=== PATIENT | male | born 1940 | race Caucasian/White ===

== ENCOUNTER → 2017-12-05 14:23 | Outpatient (CLI) | payer MEDICARE, OTHER, SELFPAY ==
--- NOTE | 2017-12-05 14:27 | DI.RAD.S_ITS ---
PROCEDURE: XR CHEST 2V INDICATIONS: shortness of breath TECHNIQUE: 2 views of the chest were acquired. COMPARISON: [facility], , CHEST 2 VIEW, 03/05/2014, 10:18. FINDINGS: Surgical changes and devices: None. Lungs and pleura: No pleural effusions or pneumothorax. Lungs are clear. Mediastinum: Mediastinal contours are normal. Heart size is normal. Bones and chest wall: No suspicious bony abnormalities. Soft tissues appear unremarkable. IMPRESSION: No acute pulmonary process. Dictated by: Yi Jacobo M.D. on 12/05/2017 at 16:07 Approved by: Yi Jacobo M.D. on 12/05/2017 at 16:07
[2017-12-05 15:06] LABS: Add Manual Diff / Slide Review NO; Basophils Percent Auto 0.4 % (0-2); Eosinophils Percent Auto 3.6 % (2-4); Hematocrit 41.8 % (41-53); Lymphocytes Percent Auto 39.3 % (25-40); Mean Corpuscular HGB Conc 33.6 % (30-36); Mean Corpuscular Hemoglobin 30.4 PG (26-34); Mean Corpuscular Volume 90.5 fL (80-100); Monocytes Percent Auto 8.5 % (3-14); Neutrophils Absolute Auto 2400 /uL (3000-5900); Neutrophils Percent Auto 48.2 % (50-75); Platelet Count 158 X10^3/uL (150-400); Red Blood Cell Count 4.61 X10^6/uL (4.5-5.9); Red Cell Distribution Width 15.1 % (11.6-14.8)
[2017-12-05 15:24] LABS: Alanine Aminotransferase 23 IU/L (21-72); Albumin 3.8 g/dL (3.5-5.0); Albumin Globulin Ratio 1.4 (1.0-2.8); Alkaline Phosphatase 48 U/L (38-126); Aspartate Aminotransferase 34 IU/L (17-59); BUN Creatinine Ratio 22.2 (6-22); Bilirubin Total 0.5 mg/dL (0.2-1.3); Blood Urea Nitrogen 20 mg/dL (9-20); Carbon Dioxide 32 mmol/L (22-32); Chloride 105 mmol/L (98-107); Estimated Glomerular Filt Rate > 60.0 mL/min (>60); Globulin 2.8 g/dL (1.7-4.1); Glucose 96 mg/dL (80-110); HEMOLYSIS < 15 (0-50); Sodium 145 mmol/L (137-145); Total Protein 6.6 g/dL (6.3-8.2)
== END ==
PROVIDERS: Family Provider Family Medicine; PCP Family Medicine; Visit Provider Family Medicine
DX: R06.02 Shortness of breath (principal); R06.2 Wheezing
CPT/HCPCS: 36415; 71046; 80053; 83880; 85025

== ENCOUNTER 2017-12-16 17:18 | Emergency (ER) | payer MEDICARE, OTHER, SELFPAY ==
[2017-12-16 17:26] VITALS: BP 156/78; PULSE 68; RESP 14; TEMP 36.6; O2SAT 98
--- NOTE | 2017-12-16 17:31 | DI.RAD.S_ITS ---
PROCEDURE: XR CHEST 1V INDICATIONS: chest pain TECHNIQUE: One view of the chest was acquired. COMPARISON: [facility], CR, XR CHEST 2V, 12/05/2017, 14:10. FINDINGS: Surgical changes and devices: None. Lungs and pleura: No pleural effusions or pneumothorax. Lungs are clear. Mediastinum: Mediastinal contours appear normal. Heart size is normal. Bones and chest wall: No suspicious bony lesions. Overlying soft tissues appear unremarkable. IMPRESSION: No acute cardiopulmonary disease process. Dictated by: Tanja Greer MD, PhD on 12/16/2017 at 18:13 Approved by: Tanja Greer MD, PhD on 12/16/2017 at 18:13
[2017-12-16 18:12] LABS: Add Manual Diff / Slide Review NO; Basophils Percent Auto 0.8 % (0-2); Hematocrit 41.2 % (41-53); Hemoglobin 13.8 g/dL (13.5-17.5); Lymphocytes Percent Auto 30.8 % (25-40); Mean Corpuscular HGB Conc 33.6 % (30-36); Mean Corpuscular Hemoglobin 30.6 PG (26-34); Mean Corpuscular Volume 90.9 fL (80-100); Monocytes Percent Auto 8.5 % (3-14); Neutrophils Absolute Auto 3100 /uL (3000-5900); Neutrophils Percent Auto 55.9 % (50-75); Platelet Count 162 X10^3/uL (150-400); Red Blood Cell Count 4.53 X10^6/uL (4.5-5.9); Red Cell Distribution Width 15.6 % (11.6-14.8); White Blood Cell Count 5.4 X10^3/uL (4.5-11.0)
[2017-12-16 18:30] VITALS: BP 132/77; PULSE 62; RESP 16; O2SAT 96
[2017-12-16 18:39] LABS: INR 2.2 (0.9-1.3); Prothrombin Time 24.7 SECONDS (10.1-12.7)
[2017-12-16 18:42] LABS: PTT Partial Thromboplastin Tim 35 SECONDS (26.4-36.2)
[2017-12-16 18:48] LABS: Alanine Aminotransferase 30 IU/L (21-72); Albumin 4.1 g/dL (3.5-5.0); Albumin Globulin Ratio 1.5 (1.0-2.8); Alkaline Phosphatase 47 U/L (38-126); Aspartate Aminotransferase 27 IU/L (17-59); BUN Creatinine Ratio 28.9 (6-22); Bilirubin Total 0.4 mg/dL (0.2-1.3); Blood Urea Nitrogen 26 mg/dL (9-20); Calcium 8.8 mg/dL (8.4-10.2); Carbon Dioxide 30 mmol/L (22-32); Chloride 106 mmol/L (98-107); Estimated Glomerular Filt Rate > 60.0 mL/min (>60); Globulin 2.8 g/dL (1.7-4.1); Glucose 116 mg/dL (80-110); HEMOLYSIS 19 (0-50); Potassium 4.1 mmol/L (3.4-5.1); Sodium 144 mmol/L (137-145); Total Protein 6.9 g/dL (6.3-8.2)
--- NOTE | 2017-12-16 18:58 | DI.CT.S_ITS ---
PROCEDURE: CT ANGIO CHEST PE PROTOCOL INDICATIONS: Chest pain, Shortness of breath, hypoxia TECHNIQUE: After the administration of intravenous contrast, 2 mm thick sections acquired from the pulmonary apices to the posterior costophrenic angles. 3-dimensional maximum intensity projection (MIP) coronal and sagittal reformats were then acquired through the thorax. For radiation dose reduction, the following was used: automated exposure control, adjustment of mA and/or kV according to patient size. COMPARISON: None. FINDINGS: Image quality: Excellent. Pulmonary arteries: Pulmonary arteries are normal in size, and demonstrate no intraluminal filling defects to suggest central pulmonary embolism. Lungs and pleura: Atelectasis noted in the dependent portions of the lungs. 7 mm calcified granuloma noted in the lingula of the left upper lobe. No pleural effusions or pneumothorax. Central and peripheral airways are patent. Mediastinum: Heart size is normal, without pericardial effusion. Atherosclerotic calcifications are noted in the aorta, great vessels and the coronary vasculature. No mediastinal or hilar adenopathy. Thoracic aorta is normal in caliber and enhancement. Esophagus is normal in caliber, without hiatal hernia. Bones and chest wall: No suspicious bony lesions. Ribs and thoracic spine appear intact throughout. Spine degenerative disease and facet arthropathy noted. Thyroid gland is within normal limits. No axillary or supraclavicular adenopathy. Abdomen: Calcification noted in the posterior-superior subsegment of the right lobe of the liver. Gallbladder surgically absent. Visualized upper abdominal solid organs otherwise appear normal in the early arterial phase of enhancement. IMPRESSION: 1. No pulmonary embolus. 2. Bibasilar atelectasis left greater than right. 3. No pleural effusions. 4. Atherosclerosis including dense atherosclerotic calcifications in the coronary vasculature. Dictated by: Tanja Greer MD, PhD on 12/16/2017 at 19:22 Approved by: Tanja Greer MD, PhD on 12/16/2017 at 19:27
[2017-12-16 19:00] VITALS: BP 154/69; PULSE 59; RESP 15; O2SAT 98
[2017-12-16 19:04] LABS: Troponin I < 0.012 ng/mL (0.01-0.034)
--- NOTE | 2017-12-16 19:46 | ED.DIZZY ---
HPI - Dizziness General Chief Complaint: Dizziness Stated Complaint: DIZZINESS Time Seen by Provider: 12/16/17 18:15 Source: patient and family Mode of arrival: ambulatory Limitations: no limitations History of Present Illness HPI Narrative: 77-year-old male, nonsmoker with history of Parkinson's presents to the emergency department with his in the chief complaint of increasing episodes of shortness of breath and dizziness with exertion over the past weeks to months. He has been evaluated by his primary care provider regarding this. The patient states his symptoms worsen with exertion and improved with rest. He denies change in symptoms with change of position of his head or medially standing up. He denies chest pain, nausea or vomiting. He denies any diaphoresis. He has had no recent runny nose, sore throat or cough. He denies fever or chills MD complaint: dizziness and lightheadedness Onset (ago): week(s) Timing: gradual onset Description: lightheadedness History of similar episodes: Yes History of trauma: No Severity: moderate Relieving factors: rest Exacerbating factors: exertion Related Data Home Medications Medication Instructions Recorded Confirmed CA PANTOTHENATE/FOLIC ACID/VIT 1 tab PO QDAY #0 05/14/11 12/08/17 (MULTIVITAMIN) Fish Oil (#MAREPA) 1,200 mg PO BID #0 05/14/11 12/08/17 carbidopa-levodopa QID #0 05/15/17 12/08/17 memantine [Namenda] 10 mg PO BID #0 05/15/17 12/08/17 Previous Rx's Medication Instructions Recorded warfarin [Coumadin] 0 PO SEE INSTRUCTIONS #160 tab 05/14/17 tamsulosin [Flomax] 0.4 mg PO QDAY #90 cap 10/06/17 finasteride 5 mg PO Q DAY #90 tab 10/20/17 albuterol sulfate HFA 90 2 puff INHALATION Q6H PRN #8.5 gram 12/08/17 mcg/actuation aerosol inhaler Allergies Allergy/AdvReac Type Severity Reaction Status Date / Time oxycodone [OXYCODONE] Allergy Mild HIVES Verified 12/08/17 13:26 acetaminophen [From PERCOCET] Allergy Unknown Verified 12/08/17 13:26 adhesive [ADHESIVE] Allergy Unknown Verified 12/08/17 13:26 Review of Systems Review of Systems All systems reviewed & are unremarkable except as noted in HPI and below Constitutional Denies chills, Denies fever(s), Denies lethargy and Denies weakness Eyes Denies change in vision, Denies eye discharge, Denies irritation and Denies loss of vision ENT Ears, Nose, Mouth, and Throat: Denies change in voice, Reports dizziness, Denies neck pain and Denies sore throat Cardiovascular Denies chest pain, Denies irregular heart rhythm, Reports lightheadedness, Denies palpitations, Reports dyspnea, Reports dyspnea on exertion and Denies orthopnea Respiratory Denies cough, Reports dyspnea, Reports dyspnea on exertion and Denies wheezing Gastrointestinal Gastrointestinal: Denies abdominal pain, Denies change in bowel habits, Denies diarrhea, Denies nausea and Denies vomiting Genitourinary Denies hematuria, Denies flank pain, Denies urinary incontinence and Denies urinary urgency Musculoskeletal Denies neck pain Integumentary/Breasts Denies pruritus, Denies erythema, Denies rash and Denies wounds Neurologic Denies confusion, Reports dizziness, Denies loss of vision and Denies weakness Psychiatric Denies anxiety, Denies confusion, Denies depression, Denies homicidal ideation and Denies suicidal ideation Endocrine Denies palpitations Hematologic/Lymphatic Denies easy bruising Allergic/Immunologic Denies wheezing PFSH Social History marital status: Smoking Status: Former smoker alcohol intake: never substance use type: does not use Exam Narrative Exam Narrative: Pleasantly confused 77-year-old male is resting comfortably and in no obvious distress at this point time Initial Vital Signs Initial Vital Signs: Vital Signs Temperature 97.8 F 12/16/17 17:26 Pulse Rate 68 12/16/17 17:26 Respiratory Rate 14 12/16/17 17:26 Blood Pressure 156/78 H 12/16/17 17:26 Pulse Oximetry 98 12/16/17 17:26 Const General: cooperative and well developed Nutritional Appearance: well nourished Orientation: alert, awake, oriented x3 and not confused [facility] Head: normocephalic and atraumatic Ears: external ears normal and TM's normal bilaterally Nose: external nose normal and No nasal discharge Face and sinus: sinuses nontender, face symmetric, no sinus tenderness and No dry mucous membranes Mouth: oral mucosae normal and moist mucous membranes Teeth and gingiva: dentition normal Throat: tonsils normal and uvula midline Eyes General: appearance normal, both eyes and all related structures Eyelids: eyelids normal Conjunctivae: conjunctivae normal Sclera: sclerae normal Pupils: PERRL EOM: EOM intact bilaterally Neck Neck: normal visual inspection, trachea midline, No lymphadenopathy, No midline deformity and No JVD Lymphatic: No lymphedema Chest Chest: normal inspection of the chest Resp Effort & Inspection: normal respiratory effort, able to speak in complete sentences, no respiratory distress and no use of accessory muscles Auscultation: clear to auscultation bilaterally, no rales, no rhonchi and no wheezes Cardio Rate: regular rate Rhythm: regular rhythm Heart Sounds: no click, no gallops, no murmurs and no rubs Pulses: normal peripheral pulses GI Inspection: non-distended Palpation: soft, no hepatosplenomegaly, No guarding, No pulsatile mass and No tender Auscultation: normal bowel sounds Back/Spine/Pelvis Back: No CVA tenderness Cervical Spine: cervical ROM normal and No pain with cervical ROM Thoracic/Lumbar Spine: thoracic and lumbar spine normal to inspection Skin General: no rashes or lesions noted, No jaundice and No petechiae Neuro General: alert, oriented x3, gait normal and no focal motor deficits Speech: speech normal Extrem General: full ROM, no clubbing, cyanosis or edema, no pedal edema and no calf tenderness Psych Appearance: well kempt Mental Status: mental status grossly normal Attitude: cooperative Thought Content: normal and suicidality Judgment: judgment good Course Orders Ordered: ED Orders 12/16/17 17:31 XR chest 1V Stat EKG-12 Lead Stat 12/16/17 18:05 B Type Natriuretic Peptide Stat Complete Blood Count AUTO DIFF Stat Comprehensive Metabolic Panel Stat Partial Thromboplastin Time Stat Prothrombin Time INR Stat Troponin I Stat 12/16/17 18:58 CT angio chest PE protocol Stat Vital Signs - 8 hr 12/16/17 20:26 Pulse Rate 64 Respiratory Rate 17 Blood Pressure 129/84 Pulse Oximetry 97 MDM - Dizziness Differential Diagnosis Likely adverse reaction to drug, cerebrovascular accident, acute vestibular neuronitis and transient cerebral ischemia Medical Records Attestation: I reviewed the patient's medical records. Lab Data Attestation: I reviewed the patient's lab results. Result diagrams: 12/16/17 18:05 12/16/17 18:05 Lab Results 12/16/17 12/16/17 12/16/17 Range/Units 18:05 18:05 18:05 WBC 5.4 (4.5-11.0) X10^3/uL RBC 4.53 (4.5-5.9) X10^6/uL Hgb 13.8 (13.5-17.5) g/dL Hct 41.2 (41-53) % MCV 90.9 (80-100) fL MCH 30.6 (26-34) PG MCHC 33.6 (30-36) % RDW 15.6 H (11.6-14.8) % Plt Count 162 (150-400) X10^3/uL Neut % (Auto) 55.9 (50-75) % Lymph % (Auto) 30.8 (25-40) % [place] % (Auto) 8.5 (3-14) % Eos % (Auto) 4.0 (2-4) % Baso % (Auto) 0.8 (0-2) % Neut # (Auto) 3100 (3691-8481) /uL PT 24.7 H (10.1-12.7) SECONDS INR 2.2 H (0.9-1.3) APTT 35 (26.4-36.2) SECONDS Sodium 144 (137-145) mmol/L Potassium 4.1 (3.4-5.1) mmol/L Chloride 106 (98-107) mmol/L Carbon Dioxide 30 (22-32) mmol/L BUN 26 H (9-20) mg/dL Creatinine 0.90 (0.66-1.25) mg/dL Estimated GFR > 60.0 (>60) mL/min BUN/Creatinine Ratio 28.9 H (6-22) Glucose 116 H (80-110) mg/dL Calcium 8.8 (8.4-10.2) mg/dL Total Bilirubin 0.4 (0.2-1.3) mg/dL AST 27 (17-59) IU/L ALT 30 (21-72) IU/L Alkaline Phosphatase 47 (38-126) U/L Troponin I < 0.012 (0.01-0.034) ng/mL B-Natriuretic Peptide 125.0 H (<100) Total Protein 6.9 (6.3-8.2) g/dL Albumin 4.1 (3.5-5.0) g/dL Globulin 2.8 (1.7-4.1) g/dL Albumin/Globulin Ratio 1.5 (1.0-2.8) Imaging Data CT scan - chest: Radiologist's impression: [address] [address] [address] Scan Report Signed Patient: Tom Mcallister JR TMR#: [id number] : 2Acct:[id number] Age/Sex: 77 / MDate of Service: 12/16/17 Loc: ED Accession Number: [id number] Procedure: CT angio chest PE protocol Ordering Provider: Héctor Fleming D.O. PROCEDURE: CT ANGIO CHEST PE PROTOCOL INDICATIONS: Chest pain, Shortness of breath, hypoxia TECHNIQUE: After the administration of intravenous contrast, 2 mm thick sections acquired from the pulmonary apices to the posterior costophrenic angles. 3-dimensional maximum intensity projection (MIP) coronal and sagittal reformats were then acquired through the thorax. For radiation dose reduction, the following was used: automated exposure control, adjustment of mA and/or kV according to patient size. COMPARISON: None. FINDINGS: Image quality: Excellent. Pulmonary arteries: Pulmonary arteries are normal in size, and demonstrate no intraluminal filling defects to suggest central pulmonary embolism. Lungs and pleura: Atelectasis noted in the dependent portions of the lungs. 7 mm calcified granuloma noted in the lingula of the left upper lobe. No pleural effusions or pneumothorax. Central and peripheral airways are patent. Mediastinum: Heart size is normal, without pericardial effusion. Atherosclerotic calcifications are noted in the aorta, great vessels and the coronary vasculature. No mediastinal or hilar adenopathy. Thoracic aorta is normal in caliber and enhancement. Esophagus is normal in caliber, without hiatal hernia. Bones and chest wall: No suspicious bony lesions. Ribs and thoracic spine appear intact throughout. Spine degenerative disease and facet arthropathy noted. Thyroid gland is within normal limits. No axillary or supraclavicular adenopathy. Abdomen: Calcification noted in the posterior-superior subsegment of the right lobe of the liver. Gallbladder surgically absent. Visualized upper abdominal solid organs otherwise appear normal in the early arterial phase of enhancement. IMPRESSION: 1. No pulmonary embolus. 2. Bibasilar atelectasis left greater than right. 3. No pleural effusions. 4. Atherosclerosis including dense atherosclerotic calcifications in the coronary vasculature. Dictated by: Tanja Greer MD, PhD on 12/16/2017 at 19:22 Approved by: Tanja Greer MD, PhD on 12/16/2017 at 19:27 [facility] Narrative Medical decision making narrative: Stroke considered as an etiology of the patient's symptoms however his dizziness is closely associated with shortness of breath and is actually more appropriate described as lightheadedness. He has no focal neurologic findings. Middle ear problems considered such as BPPV, labyrinthitis versus other but thought less likely given lack of reproducibility or significant intensity of symptoms with motion of the head Cardiac disease considered the most likely cause of symptoms given reproducibility with exertion and constellation of symptoms including shortness of breath and lightheadedness with exertion and improves with rest. Patient considered appropriate for outpatient workup given lack of abnormal labs or EKG changes in the setting of chronic symptoms Discharge Plan Departure Patient Disposition: Home Clinical Impression: Acute dyspnea Discharge Date/Time: 12/16/17 20:01 Interventions: ED Discharge Assessment Last Done: 12/16/17 20:26 Instructions: DI for Shortness of Breath Activity Restrictions/Additional Instructions: *You have been diagnosed with [ chronic worsening dyspnea with dizziness ] *What to do: *Continue to take medications as directed *Follow up with your primary care provider in 2-3 days, call for an appointment. Let them know you were seen in the Emergency Department and that we ask that you be seen in follow up. Dr. Burgos's plan to proceed with stress test and echocardiogram is very reasonable and would be my recommendation as well. *Return to ER if you should have any new, worsening or concerning symptoms Prescriptions: No Action CA PANTOTHENATE/FOLIC ACID/VIT (MULTIVITAMIN) 1 tab PO QDAY Qty: 0 RF: 0 Fish Oil (#MAREPA) 1,200 mg PO BID Qty: 0 RF: 0 warfarin [Coumadin] 5 MG tablet PO SEE INSTRUCTIONS Qty: 160 RF: 3 memantine [Namenda] 10 MG tablet 10 mg PO BID Qty: 0 RF: 0 carbidopa-levodopa 25 MG/100 MG tablet QID Qty: 0 RF: 0 tamsulosin [Flomax] 0.4 mg capsule,extended release 24hr 0.4 mg PO QDAY Qty: 90 RF: 3 finasteride 5 mg tablet 5 mg PO Q DAY Qty: 90 RF: 3 albuterol sulfate 90 mcg/actuation HFA aerosol inhaler 2 puff INHALATION Q6H PRN (Reason: bronchospasm) Qty: 8.5 RF: 0 Referrals: Addi Burgos MD [Primary Care Provider] -
[2017-12-16 20:26] VITALS: BP 129/84; PULSE 64; RESP 17; O2SAT 97
== END 2017-12-16 20:01 | disposition home or self-care (01) ==
PROVIDERS: Emergency Medicine; Emergency Provider Emergency Medicine; Family Provider Family Medicine; PCP Family Medicine
DX: R06.00 Dyspnea, unspecified (principal); R42 Dizziness and giddiness
CPT/HCPCS: 36591; 71045; 71275; 80053; 83880; 84484; 85025; 85610; 85730; 93005; 99282; 99285; Q9967

== ENCOUNTER → 2018-01-09 12:17 | Outpatient (CLI) | payer MEDICARE, OTHER, SELFPAY ==
--- NOTE | 2018-01-09 15:04 | PM.TREADMILL ---
Cardiac Stress Test Report Referral & Results Date Patient Seen: 01/09/18 Requesting provider: Addi Burgos Indication: Dyspnea Rest ECG: Unremarkable Procedure Note: Today following both written and verbal informed consent, the patient was exercised according to a standard Henri protocol. The patient exercised for a total of 6 min 2 sec achieving a maximum heart rate of 100. Patient's maximum systolic blood pressure was 170. This was an estimated 7.0 MET's. There are no ST-T segment changes Patient had a very blunted heart rate response but normal blood pressure response to exercise. He failed to reach heart rate targets Occasional PACs with a prominent compensatory pauses were noted Rare PVCs including a ventricular couplet Functional aerobic impairment rated 0 on the sedentary scale Impression: Dysrhythmias above No evidence of ischemia although patient failed to reach heart rate targets. Review of patient's chart shows he is not taking any chronotropic agents therefore wonder about possible chronotropic insufficiency as perhaps a part of his symptomatology. Clinical correlation suggested Please note: Actual ECG tracings can be found in the PACS system.
--- NOTE | 2018-01-09 21:14 | DI.ECHO.S_ITS ---
Echocardiogram Report + + :Name: NELSON BLANTON Study Date: 01/09/2018 Height: 71 in : :[facility] Weight: 200 lb : : Gender: Male BSA: 2.1 m2 : :: 1940 Age: 77 yrs BP: 120/58 mmHg: :Reason For Study: Dyspnea : : Performed By: Mari Velasquez : :Referring: RIO MILLER : + + Interpretation Summary The left ventricle is normal in size. Left ventricular wall thickness is mild-moderately increased. The ejection fraction is estimated to be 60-65%. The right ventricle is normal in size and function. The left atrium is mildly dilated. There is moderate mitral regurgitation. The regurgitant volume is 39 mL with ERO of 0.21 cm??. -Comparison is made with the echocardiogram of 03-04-14. -The patient is now in atrial fibrillation with heart rates between 53-60 bpm during the exam. -The MR is slightly more. Procedure: A two-dimensional transthoracic echocardiogram with color flow and Doppler was performed. The study quality was technically adequate. Comparison is made with the echocardiogram of 03-04-14. The patient was in atrial fibrillation with heart rates between 53-60 bpm during the exam. Left Ventricle: The left ventricle is normal in size. Left ventricular wall thickness is mild-moderately increased. The ejection fraction is estimated to be 60-65%. There are no obvious focal wall motion abnormalities noted but poor endocardial definition reduces the sensitivity for the detection of such. Diastolic function could not be accurately assessed due to atrial fibrillation. Right Ventricle: The right ventricle is normal in size and function. TAPSE 2.3 cm. Atria: The left atrium is mildly dilated. Right atrial size is normal. The interatrial septum is intact with no evidence for an atrial septal defect. Mitral Valve: The mitral valve is grossly normal. There is moderate mitral regurgitation. The regurgitant volume is 39 mL with ERO of 0.21 cm??. Aortic Valve: The aortic valve opens well. The aortic valve is moderately calcified. The aortic valve is trileaflet. Leaflet mobility is normal. There is no aortic valve stenosis. No aortic regurgitation is present. Tricuspid Valve: The tricuspid valve is normal in structure and function. There is a trace or physiologic amount of tricuspid regurgitation. Pulmonary artery pressures cannot be estimated because of the lack of a measurable TR jet velocity but the IVC suggests a CVP of around 3 mmHg. Pulmonic Valve: The pulmonic valve is not well seen, but is grossly normal. There is a trace or physiologic amount of pulmonic regurgitation. Great Vessels: The aortic root is normal size. The ascending aorta is at the upper limits of normal in size. The IVC is of normal diameter and collapses greater than 50% with a sniff. This suggests a low right atrial pressure of 3 mm Hg. Pericardium/ Pleura There is no pericardial effusion. There is no pleural effusion. MMode/2D Measurements & Calculations LVIDd: 5.3 cm Ao root diam: 3.3 cm LVIDs: 3.1 cm Aortic Jxn: 2.6 cm FS: 42.1 % asc Aorta Diam: 3.5 cm EPSS: 0.54 cm Ao Arch Diam (Prox Trans): 2.8 cm IVSd: 0.80 cm LVPWd: 0.95 cm LV stevens. diameter/BSA (cm/m^2): 2.5 LV sys. diameter/BSA (cm/m^2): 1.5 LA dimension: 4.6 cm RA long axis: 4.9 cm LA A2 area: 29.6 cm2 RA area: 16.4 cm2 LA A4 area: 28.2 cm2 RA vol: 46.4 ml LA length (vol): 6.0 cm RA : 22.0 ml/m2 LA vol: 118.4 ml IVC diam: 1.8 cm LA vol index: 56.2 ml/m2 RVDd major: 5.1 cm RVD1 (basal): 3.8 cm RVD2 (mid): 3.3 cm Doppler Measurements & Calculations Ao V2 max: 167.4 cm/sec Med Peak E' Alfredo: 8.8 cm/sec Ao V2 mean: 98.1 cm/sec Lat Peak E' Alfredo: 8.2 cm/sec Ao max P.2 mmHg MR ERO: 0.21 cm2 Ao mean P.8 mmHg Ao V2 VTI: 33.2 cm TR max alfredo: 252.4 cm/sec MV V2 mean: 466.6 cm/sec TR max P.5 mmHg MV mean P.6 mmHg PA V2 max: 78.5 cm/sec MV V2 VTI: 194.1 cm PA V2 mean: 53.5 cm/sec PA mean P.3 mmHg PA Accel Time: 0.18 sec MR flow rate: 115.8 cm3/sec MR PISA radius: 0.70 cm _ Electronically signed by: Berto Butts M.D. on Reading Physician:01/09/2018 09:14 PM
== END ==
PROVIDERS: Family Provider Family Medicine; PCP Family Medicine; Visit Provider Family Medicine
DX: R06.00 Dyspnea, unspecified (principal)
CPT/HCPCS: 93016; 93017; 93018; C8929; Q9957

== ENCOUNTER 2018-09-11 21:33 | Emergency (ER) | payer MEDICARE, OTHER, SELFPAY ==
[2018-09-11 21:42] VITALS: BP 155/108; PULSE 72; RESP 20; TEMP 36.4; O2SAT 98; BMI 25.7
--- NOTE | 2018-09-11 22:55 | ED.RECABL ---
HPI - Recheck/Abnormal Lab/Rx General Chief Complaint: Recheck/Abnormal Lab/Rx Stated Complaint: LOW TEMP Time Seen by Provider: 09/11/18 22:31 Source: patient and family (His ) Mode of arrival: ambulatory Limitations: other (He has dementia) History of Present Illness HPI narrative: The patient developed abdominal pain earlier today. He complained of central abdominal pain, without nausea, vomiting or diarrhea. He has no dysuria or urinary retention. His no testicular pain he denies fever or chills. Actually his checked his temperature and got a reading of 94? and was concerned about a low temperature. Initial abdominal complaints, there is no suggestion of illness. He has no sinus pressure, or sore throat. He has no neck pain. He has no chest pain, no dyspnea or cough. He is anticoagulated with Coumadin for recurrent PEs. He takes medications for Parkinson's and dementia. Related Data Home Medications Medication Instructions Recorded Confirmed CA PANTOTHENATE/FOLIC ACID/VIT 1 tab PO QDAY #0 05/14/11 07/14/18 (MULTIVITAMIN) Fish Oil (#MAREPA) 1,200 mg PO BID #0 05/14/11 07/14/18 carbidopa-levodopa QID #0 05/15/17 07/14/18 memantine [Namenda] 10 mg PO BID #0 05/15/17 07/14/18 Previous Rx's Medication Instructions Recorded finasteride 5 mg PO Q DAY #90 tab 10/20/17 tamsulosin [Flomax] 0.4 mg PO QDAY #90 cap 03/30/18 warfarin 5 mg tablet 5 mg PO SEE INSTRUCTIONS #180 tab 04/06/18 Allergies Allergy/AdvReac Type Severity Reaction Status Date / Time oxycodone [OXYCODONE] Allergy Mild HIVES Verified 07/14/18 11:47 acetaminophen [From PERCOCET] Allergy Unknown Verified 07/14/18 11:47 adhesive [ADHESIVE] Allergy Unknown Verified 07/14/18 11:47 Review of Systems Review of Systems ROS Unobtainable: All systems reviewed & are unremarkable except as noted in HPI and below Constitutional Denies chills, Denies fever(s), Denies headache(s), Denies lethargy and Denies weakness Eyes Denies loss of vision ENT Ears, Nose, Mouth, and Throat: Denies change in voice, Denies dizziness, Denies headache(s), Denies neck pain and Denies sore throat Cardiovascular Denies chest pain, Denies palpitations and Denies dyspnea Respiratory Denies chest congestion, Denies cough, Denies hemoptysis and Denies dyspnea Gastrointestinal Gastrointestinal: Reports as per HPI, Reports abdominal pain, Denies change in bowel habits, Denies diarrhea, Denies nausea and Denies vomiting Genitourinary Reports as per HPI Musculoskeletal Denies back pain and Denies neck pain Integumentary/Breasts Denies pruritus, Denies erythema, Denies rash and Denies wounds Neurologic Denies dizziness, Denies headache(s), Denies focal weakness, Denies loss of vision, Reports memory loss, Reports tremor(s) and Denies weakness Psychiatric Denies anxiety, Denies depression and Reports memory loss Endocrine Denies palpitations [facility] Medical History Acne (Chronic) Asthma (Chronic ~1999) Atrial fibrillation (Chronic) Chronic back pain (Chronic ~1979) Depression (Chronic ~2011) Hearing loss (Chronic) Hypertension (Chronic) Osteoarthritis (Chronic) Peptic ulcer disease (Chronic ~1969) Pulmonary embolism (Chronic ~2009) Recurrent sinusitis (Chronic) Seasonal allergies (Chronic ~1941) Shoulder pain (Chronic ~2013) Skin cancer (Chronic ~1979) Sleep apnea (Chronic ~1959) Chicken pox (Resolved ~1947) Measles (Resolved) Mumps (Resolved ~1950) Surgical History History of arthroscopic knee surgery (Resolved) History of arthroscopic surgery of shoulder (Resolved) History of knee replacement Status post laparoscopic cholecystectomy Family History Father Heart disease Mother Alcohol abuse Social History marital status: Smoking Status: Former smoker alcohol intake: never substance use type: does not use Family History Father Heart disease Mother Alcohol abuse Social History marital status: Smoking Status: Former smoker alcohol intake: never substance use type: does not use Exam Initial Vital Signs Initial Vital Signs: Vital Signs Temperature 97.6 F 09/11/18 21:42 Pulse Rate 72 09/11/18 21:42 Respiratory Rate 20 09/11/18 21:42 Blood Pressure 155/108 H 09/11/18 21:42 Pulse Oximetry 98 09/11/18 21:42 Const General: cooperative and well developed Nutritional Appearance: well nourished Orientation: alert, awake, oriented to person, oriented to place, not oriented to time and confused [facility] Head: normocephalic and atraumatic Ears: external ears normal (Moderate bilateral cerumen) and TM's normal bilaterally Nose: external nose normal Face and sinus: sinuses nontender and face symmetric Mouth: moist mucous membranes Teeth and gingiva: dentition normal Throat: tonsils normal and uvula midline Eyes Pupils: PERRL EOM: EOM intact bilaterally Neck Neck: normal visual inspection, trachea midline, No lymphadenopathy, No midline deformity, No tender and No JVD Lymphatic: No lymphedema Chest Chest: normal inspection of the chest Resp Effort & Inspection: normal respiratory effort, able to speak in complete sentences, no respiratory distress and no use of accessory muscles Auscultation: clear to auscultation bilaterally, no rales, no rhonchi and no wheezes Cardio Rate: regular rate Rhythm: regular rhythm Heart Sounds: no click, no gallops, no murmurs and no rubs Pulses: normal peripheral pulses GI Inspection: non-distended Palpation: soft, no hepatosplenomegaly and No guarding Auscultation: normal bowel sounds Other: He does have a umbilical hernia that was protruding at the time exam. The hernia was easily reducible, alleviating a bit of ongoing pain. This was the site of his pain earlier today, apparently. Back/Spine/Pelvis Back: No CVA tenderness Skin General: no rashes or lesions noted and No petechiae Neuro General: alert, oriented x3, gait normal and no focal motor deficits Speech: speech normal Extrem General: full ROM, no clubbing, cyanosis or edema, no pedal edema and no calf tenderness Psych Appearance: well kempt Mental Status: mental status grossly normal Attitude: cooperative Thought Content: normal Judgment: fair Course Course Narrative: From the history exam the discomfort earlier today was likely due to the umbilical hernia. His vitals are reassuring. He has no evidence of obvious illness. He is discharged home, with a referral to surgery. He will likely be considered high risk for surgery. However he should go to the surgical consultation to review options/best decisions. Vital Signs - 8 hr 09/11/18 21:42 Temperature 97.6 F Pulse Rate 72 Respiratory Rate 20 Blood Pressure 155/108 H Pulse Oximetry 98 Discharge Plan Departure Patient Disposition: Home Clinical Impression: Hernia, umbilical Qualifiers: Obstruction and gangrene presence: without obstruction or gangrene Qualified Code(s): K42.9 - Umbilical hernia without obstruction or gangrene Instructions: DI for Ventral Hernia Activity Restrictions/Additional Instructions: If you have recurrence of a hernia pain lay down and rest. See if the hernia will reduce with mild pressure. If he had persistent abdominal pain and it feels like the hernia persistently stays out return to the ER. I will give you contact information to contact the local surgical group, Dr. Mancini is the on-call surgeon. Call Friday to arrange an appointment. Prescriptions: No Action CA PANTOTHENATE/FOLIC ACID/VIT (MULTIVITAMIN) 1 tab PO QDAY Qty: 0 RF: 0 Fish Oil (#MAREPA) 1,200 mg PO BID Qty: 0 RF: 0 memantine [Namenda] 10 MG tablet 10 mg PO BID Qty: 0 RF: 0 carbidopa-levodopa 25 MG/100 MG tablet QID Qty: 0 RF: 0 finasteride 5 mg tablet 5 mg PO Q DAY Qty: 90 RF: 3 tamsulosin [Flomax] 0.4 mg capsule 0.4 mg PO QDAY Qty: 90 RF: 3 warfarin [Coumadin] 5 mg tablet 5 mg PO SEE INSTRUCTIONS Qty: 180 RF: 3 Referrals: Addi Burgos MD [Primary Care Provider] - Ed Mancini MD [Physician] -
[2018-09-11 23:20] VITALS: BP 159/81; PULSE 56; RESP 14; TEMP 36.4; O2SAT 97
== END 2018-09-11 23:20 | disposition home or self-care (01) ==
PROVIDERS: Emergency Provider Emergency Medicine; Family Provider Family Medicine; PCP Family Medicine
DX: K42.9 Umbilical hernia without obstruction or gangrene (principal)
CPT/HCPCS: 99282

== ENCOUNTER 2018-10-03 18:56 | Emergency (ER) | payer MEDICARE, OTHER, SELFPAY ==
[2018-10-03 19:09] VITALS: BP 162/77; PULSE 57; RESP 18; TEMP 36.3; O2SAT 95; BMI 26.5
--- NOTE | 2018-10-03 19:35 | ED_ITS ---
HPI - Recheck/Abnormal Lab/Rx General Chief Complaint: Recheck/Abnormal Lab/Rx Stated Complaint: Thinks he took to much warfarin Time Seen by Provider: 10/03/18 19:14 Source: patient Mode of arrival: ambulatory Limitations: no limitations History of Present Illness HPI narrative: patient is a 78-year-old, presenting with taking 2 tablets of Coumadin today. His in charge of his medications definitely mixed up his a.m. and p.m. medications. She is not sure if maybe there was warfarin in both cases typically he only takes in the morning. He has no complaints and overall feels fine. He is on Coumadin for blood clots. He has a has a history of Parkinson's. Related Data Home Medications Medication Instructions Recorded Confirmed CA PANTOTHENATE/FOLIC ACID/VIT 1 tab PO QDAY #0 05/14/11 09/22/18 (MULTIVITAMIN) Fish Oil (#MAREPA) 1,200 mg PO BID #0 05/14/11 09/22/18 memantine [Namenda] 10 mg PO BID #0 05/15/17 09/22/18 carbidopa 25 mg-levodopa 100 mg 1 tab PO TID 09/23/18 09/23/18 tablet pjvvysjo-xgn-wdwvh acid 300 1 tab PO DAILY 09/23/18 09/23/18 mcg-lycopene 600 mcg-lutein 300 mcg tablet rivastigmine 13.3 mg/24 hour 13.3 mg TRANSDERMAL DAILY 09/23/18 09/23/18 transdermal patch Previous Rx's Medication Instructions Recorded finasteride 5 mg PO Q DAY #90 tab 10/20/17 tamsulosin [Flomax] 0.4 mg PO QDAY #90 cap 03/30/18 warfarin 5 mg tablet 5 mg PO SEE INSTRUCTIONS #180 tab 04/06/18 Allergies Allergy/AdvReac Type Severity Reaction Status Date / Time oxycodone [OXYCODONE] Allergy Mild HIVES Verified 09/22/18 14:48 acetaminophen [From PERCOCET] Allergy Unknown Verified 09/22/18 14:48 adhesive [ADHESIVE] Allergy Unknown Verified 09/22/18 14:48 Review of Systems Review of Systems GENERAL: Denies chills, fatigue, malaise, fever, sweats, travel HEENT: Denies sinus pain, ear pain, sore throat, difficulty swallowing, neck pain RESPIRATORY: Denies dyspnea, cough, wheezing, hemoptysis, sputum. CARDIOVASCULAR: Denies chest pain, palpitations, orthopnea, edema GASTROINTESTINAL: Denies nausea, vomiting, abdominal pain, diarrhea, constipation, melena. : Denies dysuria, frequency, incontinence, hematuria, urinary retention, flank pain. MUSCULOSKELETAL: Denies weakness, joint pain, or bony pain SKIN: No rash, no erythema, no pruritus NEUROLOGIC: Denies weakness, dizziness, headache, numbness, change in speech, confusion PSYCHIATRIC: No concerning psychosocial issues. 12 point review of systems is negative except for those stated above and HPI [facility] Medical History Acne (Chronic) Asthma (Chronic ~1999) Atrial fibrillation (Chronic) Chronic back pain (Chronic ~1979) Depression (Chronic ~2011) Hearing loss (Chronic) Hypertension (Chronic) Osteoarthritis (Chronic) Peptic ulcer disease (Chronic ~1969) Pulmonary embolism (Chronic ~2009) Recurrent sinusitis (Chronic) Seasonal allergies (Chronic ~1941) Shoulder pain (Chronic ~2013) Skin cancer (Chronic ~1979) Sleep apnea (Chronic ~1959) Chicken pox (Resolved ~1947) Measles (Resolved) Mumps (Resolved ~1950) Surgical History History of arthroscopic knee surgery (Resolved) History of arthroscopic surgery of shoulder (Resolved) History of knee replacement Status post laparoscopic cholecystectomy Family History Father Heart disease Mother Alcohol abuse Social History marital status: Smoking Status: Former smoker alcohol intake: never substance use type: does not use Family History Father Heart disease Mother Alcohol abuse Social History marital status: Smoking Status: Former smoker alcohol intake: never substance use type: does not use Exam Initial Vital Signs Initial Vital Signs: Vital Signs Temperature 97.3 F L 10/03/18 19:09 Pulse Rate 57 L 10/03/18 19:09 Respiratory Rate 18 10/03/18 19:09 Blood Pressure 162/77 H 07/13/19 19:09 Pulse Oximetry 95 10/03/18 19:09 GENERAL: Alert pleasant male with parkinsonian features HEENT: Head atraumatic,EOMI, pupils reactive, face symmetric, moist mucous membranes CARDIOVASCULAR: Regular rate and rhythm without murmurs, rubs or gallops. RESPIRATORY: Breath sounds equal bilaterally, no wheezes rales or rhonchi. ABDOMEN: Soft, nontender. Normoactive bowel sounds all 4 quadrants. No guarding or rebound. Resting tremor EXTREMITIES: Normal range of motion, no clubbing or edema. Neurovascularly intact NEUROLOGICAL: Alert and oriented x4.Normal gait and speech. Cranial nerves II through XII grossly intact. SKIN: Warm, dry, no laceration, no petechiae, no rashes or lesions. Course Orders Ordered: ED Orders 10/03/18 19:45 Prothrombin Time INR Stat Vital Signs - 8 hr 10/03/18 19:09 10/03/18 20:22 Temperature 97.3 F L Pulse Rate 57 L 50 L Respiratory Rate 18 18 Blood Pressure 162/77 H 160/78 H Pulse Oximetry 95 98 [facility] - Recheck/Abnormal Lab/Rx Lab Data Attestation: I reviewed the patient's lab results. Lab Results 10/03/18 Range/Units 19:45 PT 31.8 H (10.1-12.7) SECONDS INR 2.7 H (0.9-1.3) [facility] Narrative Medical decision making narrative: At this time INR is within normal limits. Unclear if patient took 2 doses of Coumadin today or not. Recommend he continue on his Coumadin level and have it rechecked on Friday. At this time there is no evidence of bleeding. Discharge Plan Departure Patient Disposition: Home Clinical Impression: Warfarin-induced coagulopathy Discharge Date/Time: 10/03/18 20:24 Interventions: ED Discharge Assessment Last Done: 10/03/18 20:22 Instructions: Warfarin Activity Restrictions/Additional Instructions: *You have been diagnosed with possible Coumadin abnormality *What to do: Today INR is 2.7. INR rechecked with her PCP on day *Continue to take medications as directed Please resume Coumadin as prescribed once daily tomorrow *Follow up with your primary care provider in 2-3 days *Return to ER if you should have any new, worsening or concerning symptoms Prescriptions: No Action rivastigmine 13.3 mg/24 hour patch 24 hour 13.3 mg transdermal DAILY RF: 0 carbidopa-levodopa 25-100 mg tablet 1 tab PO TID RF: 0 Centrum Silver Men 300-600-300 mcg tablet 1 tab PO DAILY RF: 0 CA PANTOTHENATE/FOLIC ACID/VIT (MULTIVITAMIN) 1 tab PO QDAY Qty: 0 RF: 0 Fish Oil (#MAREPA) 1,200 mg PO BID Qty: 0 RF: 0 memantine [Namenda] 10 MG tablet 10 mg PO BID Qty: 0 RF: 0 finasteride 5 mg tablet 5 mg PO Q DAY Qty: 90 RF: 3 tamsulosin [Flomax] 0.4 mg capsule 0.4 mg PO QDAY Qty: 90 RF: 3 warfarin [Coumadin] 5 mg tablet 5 mg PO SEE INSTRUCTIONS Qty: 180 RF: 3 Referrals: Addi Burgos MD [Primary Care Provider] -
--- NOTE | 2018-10-03 19:39 | PC.NURSE ---
suspects pt took two dose of coumadin today. Is unsure if it actually happened. Denies any symptoms.
[2018-10-03 19:59] LABS: INR 2.7 (0.9-1.3); Prothrombin Time 31.8 SECONDS (10.1-12.7)
[2018-10-03 20:22] VITALS: BP 160/78; PULSE 50; RESP 18; O2SAT 98
== END 2018-10-03 20:24 | disposition home or self-care (01) ==
PROVIDERS: Emergency Provider Emergency Medicine; PCP Family Medicine
DX: D68.32 Hemorrhagic disorder due to extrinsic circulating anticoagulants (principal); T45.515A Adverse effect of anticoagulants, initial encounter; Z79.01 Long term (current) use of anticoagulants
CPT/HCPCS: 36415; 85610; 99282

== ENCOUNTER 2018-10-15 06:14 | Day surgery (SDC) | payer MEDICARE, OTHER, SELFPAY ==
[2018-10-08 15:16] VITALS: BMI 26.6
[2018-10-15] VITALS (12 sets, daily range): BP systolic 136–176; BP diastolic 69–88; PULSE 56–64; RESP 13–17; TEMP 36.1–36.7; O2SAT 95–99; BMI 26.6
[2018-10-15] MEDS: LACTATED RINGERS 1,000 ML 100 ML IV ×2 (07:11→09:36)
--- NOTE | 2018-10-15 07:37 | PM.PREOP ---
Pre-operative Note Interval Note History & Physical reviewed/Exam performed by Physician: Yes Changes to H&P: No H&P completed within 30 days and has changed as indicated here:: see office note about 10/07
[2018-10-15] MEDS: CEFAZOLIN 2 GM/100 ML FROZ.PIGGY IV (07:42)
[2018-10-15] MEDS: BUPIVACAINE 0.5% (PF) VIAL 30 ML INJ (08:16)
[2018-10-15] MEDS: ACETAMINOPHEN IV 1,000 MG/100 ML VIAL 400 MG IV (09:22)
--- NOTE | 2018-10-15 10:04 | PM.OP.1 ---
Operative Date/Time/Diagnoses Date of procedure: 10/15/18 Time of procedure: 10:00 Pre-op diagnosis: Incisional ventral hernia near the umbilicus Post-op diagnosis: same (Multiple fascial defects found) Procedure & Clinicians Procedure: Repair of incisional ventral hernias with underlay of mesh. Same procedure as scheduled: Yes Indications: Symptomatic hernia Surgeon: Ed Mancini Click Yes if Unassisted: Yes Anesthesia Type: General Operative Notes Findings: Three small defects 1 above the other were found. Closure Type: primary Specimen(s): none sent Prosthetic devices, grafts, tissues, transplants, or devices: Marlex mesh placed under the fascia and outside the abdomen in the preperitoneal space Estimated Blood Loss (mL): 10 Blood products transfused: none Procedure in detail: The patient was placed supine on the operating room table and underwent general LMA anesthesia. He was prepped and draped in the usual fashion. A vertical incision was made adjacent to the umbilicus to the left and carried down to the level of the palpable hernia. The hernia sac was dissected from surrounding structures. It was entered and found to contain fat. Because the defect in this area was small I chose to remove the fat. As I examined further IA found that the patient had 2 additional defects 1 above the other. Initially I kept the skin bridge between the lower 2 and dissected the sac and the preperitoneal fat off the overlying fascia. However ultimately I removed the skin bridge as it was problematic and probably would not hold any useful suture. After dissecting the preperitoneal fat away from the abdominal wall I placed a 2 x 4 in piece of mesh under the fascia and sutured it circumferentially with interrupted 0 Tycron. Once this was completed I closed the fascial defect with interrupted [id number] 1. Tycron and. The subcu was closed with interrupted 3 0 Vicryl after tacking the umbilicus down to the fascia. The skin was closed with a running 4 0 Vicryl subcuticular stitch and Steri-Strips. Dressing was applied the patient was awakened extubated taken recovery room good condition Complications: none Condition: stable Disposition: PACU Plan for aftercare: Follow-up in the office
--- NOTE | 2018-10-15 10:40 | SUR.PHASEII ---
PT ARRIVED TO PHASE II VIA STRETCHER. PT SITTING UP AND DRINKING SIPS OF H20. PT BROUGHT TO BEDSIDE. PT DENIES ANY PAIN/DISCOMFORT AT THIS TIME. DRSG OBSERVED TO BE C/D/I. REVIEWED DC INSTRUCTIONS WITH PT , NO FURTHER QUESTIONS OR CONCERNS NOTED. BED IN LOWEST POSITION. PT APPEARS COMFORTABLE AT THIS TIME. PT REQUESTING PT REST AT THIS TIME.
--- NOTE | 2018-10-15 11:57 | SUR.PHASEII ---
at bedside woth pt, pt given his noon meds per , pt is tolerating oral fluids, denies any nausea, abdomen is soft and non distended, dressing remains dry and intact. pt stating he needs a little bit more time, I'm not quite ready when ask if he feels ready to go home.
== END 2018-10-15 12:31 | disposition home or self-care (01) ==
LOC: OR 06:16
PROVIDERS: PCP Family Medicine; Visit Provider Specialist
PROC: (CPT 49560; principal; 2018-10-15 07:45)
DX: K43.0 Incisional hernia with obstruction, without gangrene (principal); G20 Parkinson's disease; I48.91 Unspecified atrial fibrillation; I10 Essential (primary) hypertension; Z86.711 Personal history of pulmonary embolism; Z79.01 Long term (current) use of anticoagulants
CPT/HCPCS: 49560; 49568; C1781; J0131; J0690; J2704; J3010

== ENCOUNTER → 2019-07-08 09:32 | Outpatient (CLI) | payer MEDICARE, OTHER, SELFPAY ==
[2019-07-08 10:13] LABS: Add Manual Diff / Slide Review NO; Basophils Absolute Auto 0 /uL (0-100); Basophils Percent Auto 0.3 % (0-2); Eosinophils Absolute Auto 200 /uL (0-450); Eosinophils Percent Auto 2.7 % (2-4); Hematocrit 43.6 % (41-53); Hemoglobin 14.3 g/dL (13.5-17.5); Lymphocytes Absolute Auto 2000 /uL (1100-4500); Lymphocytes Percent Auto 26.5 % (25-40); Mean Corpuscular HGB Conc 32.7 % (30-36); Mean Corpuscular Hemoglobin 30.9 PG (26-34); Mean Corpuscular Volume 94.3 fL (80-100); Monocytes Absolute Auto 700 /uL (0-900); Monocytes Percent Auto 9.2 % (3-14); Neutrophils Absolute Auto 4500 /uL (1500-7000); Neutrophils Percent Auto 61.3 % (50-75); Platelet Count 160 X10^3/uL (150-400); Red Blood Cell Count 4.63 X10^6/uL (4.5-5.9); Red Cell Distribution Width 15.6 % (11.6-14.8); White Blood Cell Count 7.4 X10^3/uL (4.5-11.0)
[2019-07-08 10:24] LABS: INR 1.8 (0.9-1.3); Prothrombin Time 20.9 SECONDS (10.1-12.7)
[2019-07-08 10:31] LABS: Alanine Aminotransferase 15 IU/L (<50); Albumin 4.2 g/dL (3.5-5.0); Albumin Globulin Ratio 1.3 (1.0-2.8); Alkaline Phosphatase 57 U/L (38-126); Aspartate Aminotransferase 34 IU/L (17-59); BUN Creatinine Ratio 28.1 (6-22); Bilirubin Total 0.8 mg/dL (0.2-1.3); Blood Urea Nitrogen 25 mg/dL (9-20); Calcium 9.4 mg/dL (8.4-10.2); Carbon Dioxide 30 mmol/L (22-32); Chloride 104 mmol/L (98-107); Estimated Glomerular Filt Rate > 60.0 mL/min (>60); Globulin 3.2 g/dL (1.7-4.1); Glucose 77 mg/dL (80-110); HEMOLYSIS < 15 (0-50); Potassium 4.3 mmol/L (3.4-5.1); Sodium 140 mmol/L (137-145); Total Protein 7.4 g/dL (6.3-8.2)
[2019-07-08 11:04] LABS: TSH w/ Reflex to FT4 1.12 uIU/mL (0.47-4.68)
[2019-07-08 11:05] LABS: Prostate Specific Antigen 1.31 ng/mL (0.10-4.00)
== END ==
PROVIDERS: PCP Family Medicine; Referring Provider Family Medicine; Visit Provider Family Medicine
DX: G20 Parkinson's disease (principal); I48.91 Unspecified atrial fibrillation
CPT/HCPCS: 36415; 80053; 84153; 84443; 85025; 85610

== ENCOUNTER 2019-09-29 19:57 | Observation (INO) | payer MEDICARE, OTHER, SELFPAY ==
[2019-09-29] VITALS (16 sets, daily range): BP systolic 163–201; BP diastolic 80–99; PULSE 61–76; RESP 10–19; TEMP 36.7; O2SAT 93–97
--- NOTE | 2019-09-29 20:15 | DI.CT.S_ITS ---
PROCEDURE: CT HEAD/BRAIN WO CON INDICATIONS: Confusion/right arm weakness TECHNIQUE: Noncontrast 4.5 mm thick angled axial sections acquired from the foramen magnum to the vertex, with coronal and sagittal reformats. For radiation dose reduction, the following was used: automated exposure control, adjustment of mA and/or kV according to patient size. COMPARISON: None. FINDINGS: Image quality: Excellent. CSF spaces: Basal cisterns are patent. No extra-axial fluid collections. The ventricles are symmetric in size and shape. Brain: No intracranial bleeds or masses. There is cerebral volume loss for age, with resultant ventricular and sulcal prominence. There are periventricular and deep white matter chronic small vessel ischemic changes. Probable lacunar infarct in the right frontal white matter. There is intracranial internal carotid artery atherosclerosis. Skull and face: Bilateral minimally displaced nasal bone fractures of uncertain chronicity. Calvarium and visualized facial bones appear intact, without suspicious lesions. Sinuses: Visualized sinuses and mastoids are clear. IMPRESSION: 1. No acute intracranial abnormalities. 2. Cerebral volume loss and chronic microvascular ischemic changes. Dictated by: Jose F Tolliver M.D. on 09/29/2019 at 20:52 Approved by: Jose F Tolliver M.D. on 09/29/2019 at 20:56
--- NOTE | 2019-09-29 20:19 | ED_ITS ---
HPI - Neuro Symptoms/Deficit General Chief Complaint: Neuro Symptoms/Deficit Stated Complaint: TIA Time Seen by Provider: 09/29/19 20:03 Source: patient, family and EMS Mode of arrival: Ambulatory History of Present Illness HPI Narrative: Accu-Chek 108 conducted by EMS. Patient has had off and on right hand weakness in the past 2 days. Worsened today. This afternoon at 3:00 p.m. states he acted more confused. Does have history of Parkinson's but symptoms seem worse than usual and different. Primary care physician Dr. Addi Burgos was at the scene with EMS. He happened to be passing by the home and did assess the patient. Patient is on warfarin for atrial fibrillation as well as for history of pulmonary embolism. I did speak with . Patient has been more confused at times combative, complete different from baseline. Has been very forgetful. But no recent illness. Having trouble feeding himself the other day. On Anticoagulants: Yes (warfarin) Related Data Home Medications Medication Instructions Recorded Confirmed omega-3 fatty acids [Fish Oil 1,200 mg PO DAILY #0 05/14/11 09/30/19 Concentrate] memantine [Namenda] 10 mg PO BID #0 05/15/17 09/30/19 carbidopa 25 mg-levodopa 100 mg 2 tab PO TID 09/23/18 09/30/19 tablet mprrkikh-skp-lantj acid 300 1 tab PO DAILY 09/23/18 09/30/19 mcg-lycopene 600 mcg-lutein 300 mcg tablet rivastigmine 13.3 mg/24 hour 13.3 mg TRANSDERMAL DAILY 09/23/18 09/30/19 transdermal patch pimavanserin 34 mg capsule 34 mg PO DAILY 07/08/19 09/30/19 Previous Rx's Medication Instructions Recorded warfarin 5 mg tablet 5 mg PO SEE INSTRUCTIONS #180 tab 02/09/19 tamsulosin 0.4 mg capsule See Rx Instructions .ROUTE 02/23/19 .COMPLEX #90 capsule finasteride 5 mg tablet 5 mg PO DAILY #90 tab 04/20/19 Allergies Allergy/AdvReac Type Severity Reaction Status Date / Time oxycodone [OXYCODONE] Allergy Mild HIVES Verified 09/07/19 13:57 acetaminophen [From PERCOCET] Allergy Unknown Verified 09/07/19 13:57 adhesive [ADHESIVE] Allergy Unknown Verified 09/07/19 13:57 Review of Systems Review of Systems Narrative: GENERAL: Denies chills, fatigue, malaise, fever, sweats. HEENT: Denies sinus pain, ear pain, sore throat, difficulty swallowing, dizziness. RESPIRATORY: Denies dyspnea, cough, wheezing, hemoptysis, sputum. CARDIOVASCULAR: Denies chest pain, palpitations, orthopnea, edema, GASTROINTESTINAL: Denies nausea, vomiting, abdominal pain, diarrhea, constipation, melena. : Denies dysuria, frequency, incontinence, hematuria, urinary retention. MUSCULOSKELETAL: denies weakness, joint pain, or bony pain SKIN: Denies rash, skin lesions, or other NEUROLOGIC: Denies any headache. Has confusion and right hand weakness. No slurred speech or facial droop. PSYCHIATRIC: No concerning psychosocial issues. ROS Unobtainable: All systems reviewed & are unremarkable except as noted in HPI and below Patient History Medical History Acne (Chronic) Arthritis (Acute) Asthma (Chronic ~1999) Atrial fibrillation (Chronic) Chicken pox (Resolved ~1947) Chronic back pain (Chronic ~1979) Dementia (Acute) Depression (Chronic ~2011) Easy bruisability (Acute) Enlarged prostate (Acute) Former smoker (Acute) Hearing loss (Chronic) Hypertension (Chronic) Measles (Resolved) Mumps (Resolved ~1950) Osteoarthritis (Chronic) Peptic ulcer disease (Chronic ~1970) Pulmonary embolism (Chronic ~2009) Recurrent sinusitis (Chronic) Seasonal allergies (Chronic ~194) Shoulder pain (Chronic ~2013) Skin cancer (Chronic ~1979) Skin lesions (Acute) Sleep apnea (Chronic ~1959) Surgical History History of arthroscopic knee surgery (Resolved) History of arthroscopic surgery of shoulder (Resolved) History of knee replacement Status post laparoscopic cholecystectomy Family History Father Heart disease Mother Alcohol abuse Social History marital status: household members: spouse Smoking Status: Former smoker alcohol intake: never substance use type: does not use Smoking Status: Former smoker Substance Use Type: does not use Exam Narrative Exam Narrative: GENERAL: patient appears stated age. Well-nourished, well- developed patient, in no distress, not toxic HEAD: Atraumatic. Normocephalic. EYES: Pupils equal round and reactive. Extraocular motions intact. No scleral icterus. No injection or drainage. ENT: Nose without bleeding, purulent drainage. Throat without erythema, tonsillar hypertrophy or exudate. Airway patent. NECK: Trachea midline. Non tender CARDIOVASCULAR: Regular rate and rhythm without murmurs, gallops, or rubs. RESPIRATORY: Clear to auscultation. Breath sounds equal bilaterally. No wheezes, rales, or rhonchi. GASTROINTESTINAL: Abdomen soft, non-tender, nondistended. EXTREMITIES: No edema or joint tenderness. BACK: Nontender without deformity or crepitance. No flank tenderness. NEURO: Awake alert to self and date of . Not to event. Not to current date. 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 Llvngj-vh-fawv intact with slight tremoring on the right hand SKIN: No rash or erythema of visible areas Psych: Cooperative, not anxious, Initial Vital Signs Initial Vital Signs: Vital Signs Temperature 98.0 F 09/29/19 20:02 Pulse Rate 65 09/29/19 20:02 Respiratory Rate 14 09/29/19 20:02 Blood Pressure 163/96 H 09/29/19 20:02 Pulse Oximetry 95 09/29/19 20:02 Scores NIH Stroke Scale Level of Conciousness: Alert, keenly responsive Ask month/age: Answers both questions correctly. Open/close eyes, close hand: Performs both tasks correctly Best gaze horizontal: Normal Visual yanes: No visual loss Facial palsy: Normal symetrical movement Left arm drift: No drift for full 10 sec Right arm drift: No drift for full 10 sec Left leg drift: No drift for full 10 sec Right leg drift: No drift for full 10 sec Limb ataxia: Absent Sensory on face/arms/legs: Normal, no sensory loss Best language: No aphasia, normal Dysarthria: Normal Extinction or inattention: No abnormality Total NIH Stroke scale score: 0 Course Course Course Narrative: No changes at this time. Will call family physician group to admit Decision to Admit Date: 09/30/19 Decision to Admit time: 00:11 Orders Ordered: ED Orders 09/29/19 20:15 CT head/brain wo con Stat 09/29/19 20:22 Complete Blood Count AUTO DIFF Stat Comprehensive Metabolic Panel Stat Partial Thromboplastin Time Stat Prothrombin Time INR Stat Troponin & CK Cardiac Panel Stat 09/29/19 23:10 Urinalysis and Microscopic Stat Discontinued Medications Aspirin (Aspirin) 325 mg PO NOW ONE Stop: 09/30/19 00:12 Last Admin: 09/30/19 00:32 Dose: Not Given Documented by: JENNIFER Aspirin (Aspirin Chew) 324 mg PO NOW ONE Stop: 09/30/19 00:31 Last Admin: 09/30/19 00:38 Dose: 324 mg Documented by: JENNIFER Reevaluation(s) Reevaluation #1: No changes at this time. No new issues. states code stat us is DNR Time: 00:12 Consultations Consultation #1: Spoke with family physician group. Dr. Lopez. Patient to be admitted under their group. Time: 01:03 Vital Signs Vital signs: Vital Signs - 8 hr 09/29/19 20:02 09/29/19 20:35 09/29/19 20:43 Temperature 98.0 F Pulse Rate 65 75 73 Respiratory Rate 14 15 Blood Pressure 163/96 H 176/96 H Pulse Oximetry 95 96 09/29/19 20:45 09/29/19 21:00 09/29/19 21:15 Temperature Pulse Rate 71 75 76 Respiratory Rate 11 L 19 13 Blood Pressure 179/83 H 188/95 H 189/84 H Pulse Oximetry 96 96 96 09/29/19 21:30 09/29/19 21:45 09/29/19 22:00 Temperature Pulse Rate 76 67 74 Respiratory Rate 16 11 L 16 Blood Pressure 195/86 H 201/83 H 175/80 H Pulse Oximetry 95 95 93 09/29/19 22:15 09/29/19 22:30 09/29/19 22:45 Temperature Pulse Rate 70 67 66 Respiratory Rate 11 L 10 L Blood Pressure 174/88 H 179/84 H 178/99 H Pulse Oximetry 96 95 95 09/29/19 23:00 09/29/19 23:15 09/29/19 23:30 Temperature Pulse Rate 62 68 61 Respiratory Rate Blood Pressure 178/84 H 192/85 H Pulse Oximetry 95 97 94 09/29/19 23:45 09/30/19 00:00 09/30/19 00:15 Temperature Pulse Rate 61 64 58 L Respiratory Rate 11 L Blood Pressure 170/95 H 180/83 H 185/94 H Pulse Oximetry 96 09/30/19 00:30 Temperature Pulse Rate 62 Respiratory Rate 12 Blood Pressure 171/94 H Pulse Oximetry MDM - Neuro Symptoms/Deficit Lab Data Result diagrams: 09/29/19 20:22 09/29/19 20:22 Labs: Lab Results 09/29/19 09/29/19 09/29/19 Range/Units 20:22 20:22 20:22 WBC 6.3 (4.5-11.0) X10^3/uL RBC 4.52 (4.5-5.9) X10^6/uL Hgb 13.8 (13.5-17.5) g/dL Hct 42.1 (41-53) % MCV 93.1 (80-100) fL MCH 30.5 (26-34) PG MCHC 32.8 (30-36) % RDW 15.9 H (11.6-14.8) % Plt Count 169 (150-400) X10^3/uL Neut % (Auto) 65.4 (50-75) % Lymph % (Auto) 23.4 L (25-40) % [place] % (Auto) 9.2 (3-14) % Eos % (Auto) 1.6 L (2-4) % Baso % (Auto) 0.4 (0-2) % Neut # (Auto) 4100 (3696-7199) /uL Lymph # (Auto) 1500 (1458-7591) /uL [place] # (Auto) 600 (0-900) /uL Eos # (Auto) 100 (0-450) /uL Baso # (Auto) 0 (0-100) /uL PT (10.1-12.7) SECONDS INR (0.9-1.3) APTT 33 D (26.4-36.2) SECONDS Sodium 138 (137-145) mmol/L Potassium 4.3 (3.4-5.1) mmol/L Chloride 105 (98-107) mmol/L Carbon Dioxide 28 (22-32) mmol/L BUN 27 H (9-20) mg/dL Creatinine 0.78 (0.66-1.25) mg/dL Estimated GFR > 60.0 (>60) mL/min BUN/Creatinine Ratio 34.6 H (6-22) Glucose 108 (80-110) mg/dL Calcium 9.2 (8.4-10.2) mg/dL Total Bilirubin 0.6 (0.2-1.3) mg/dL AST 39 (17-59) IU/L ALT 7 (<50) IU/L Alkaline Phosphatase 51 (38-126) U/L Total Creatine Kinase 187 H (55-170) U/L CK-MB (CK-2) 1.70 (<2.37) ng/mL CK-MB (CK-2) Rel Index 0.9 L (1.5-5.0) % Troponin I < 0.012 (0.01-0.034) ng/mL Total Protein 6.9 (6.3-8.2) g/dL Albumin 4.1 (3.5-5.0) g/dL Globulin 2.8 (1.7-4.1) g/dL Albumin/Globulin Ratio 1.5 (1.0-2.8) Urine Color Urine Appearance Urine pH (4.5-8.0) Ur Specific [place] (1.000-1.035) Urine Protein (Negative) Urine Glucose (UA) (Negative) g/dL Urine Ketones (NEGATIVE) Urine Occult Blood (Negative) Urine Nitrate (Negative) Urine Bilirubin (NEGATIVE) Urine Urobilinogen (0.2) E.U./dL Ur Leukocyte Esterase (NEGATIVE) Urine RBC (0-5/HPF) Urine WBC (0-5/HPF) Urine Bacteria (None) Ur Culture Indicated? Micro UA Comment 09/29/19 09/29/19 Range/Units 20:22 23:10 WBC (4.5-11.0) X10^3/uL RBC (4.5-5.9) X10^6/uL Hgb (13.5-17.5) g/dL Hct (41-53) % MCV (80-100) fL MCH (26-34) PG MCHC (30-36) % RDW (11.6-14.8) % Plt Count (150-400) X10^3/uL Neut % (Auto) (50-75) % Lymph % (Auto) (25-40) % [place] % (Auto) (3-14) % Eos % (Auto) (2-4) % Baso % (Auto) (0-2) % Neut # (Auto) (3160-8738) /uL Lymph # (Auto) (3724-2426) /uL [place] # (Auto) (0-900) /uL Eos # (Auto) (0-450) /uL Baso # (Auto) (0-100) /uL PT 19.9 H (10.1-12.7) SECONDS INR 1.7 H (0.9-1.3) APTT (26.4-36.2) SECONDS Sodium (137-145) mmol/L Potassium (3.4-5.1) mmol/L Chloride (98-107) mmol/L Carbon Dioxide (22-32) mmol/L BUN (9-20) mg/dL Creatinine (0.66-1.25) mg/dL Estimated GFR (>60) mL/min BUN/Creatinine Ratio (6-22) Glucose (80-110) mg/dL Calcium (8.4-10.2) mg/dL Total Bilirubin (0.2-1.3) mg/dL AST (17-59) IU/L ALT (<50) IU/L Alkaline Phosphatase (38-126) U/L Total Creatine Kinase (55-170) U/L CK-MB (CK-2) (<2.37) ng/mL CK-MB (CK-2) Rel Index (1.5-5.0) % Troponin I (0.01-0.034) ng/mL Total Protein (6.3-8.2) g/dL Albumin (3.5-5.0) g/dL Globulin (1.7-4.1) g/dL Albumin/Globulin Ratio (1.0-2.8) Urine Color Yellow Urine Appearance Clear Urine pH 6.5 (4.5-8.0) Ur Specific [place] 1.020 (1.000-1.035) Urine Protein Negative (Negative) Urine Glucose (UA) Negative (Negative) g/dL Urine Ketones Trace H (NEGATIVE) Urine Occult Blood Negative (Negative) Urine Nitrate Negative (Negative) Urine Bilirubin Negative (NEGATIVE) Urine Urobilinogen 0.2 (0.2) E.U./dL Ur Leukocyte Esterase Negative (NEGATIVE) Urine RBC None seen (0-5/HPF) Urine WBC None seen (0-5/HPF) Urine Bacteria None seen (None) Ur Culture Indicated? Cult not indicated Micro UA Comment Microscopic normal Imaging Data CT scan - head: Radiologist's Impression: [address] [address] [address] Scan Report Signed Patient: Tom Mcallister Jr TMR#: [id number] : 2Acct:[id number] Age/Sex: 79 / MDate of Service: 09/29/19 Loc: ED Accession Number: [id number] Procedure: CT head/brain wo con Ordering Provider: Nicholas Rojas MD PROCEDURE: CT HEAD/BRAIN WO CON INDICATIONS: Confusion/right arm weakness TECHNIQUE: Noncontrast 4.5 mm thick angled axial sections acquired from the foramen magnum to the vertex, with coronal and sagittal reformats. For radiation dose reduction, the following was used: automated exposure control, adjustment of mA and/or kV according to patient size. COMPARISON: None. FINDINGS: Image quality: Excellent. CSF spaces: Basal cisterns are patent. No extra-axial fluid collections. The ventricles are symmetric in size and shape. Brain: No intracranial bleeds or masses. There is cerebral volume loss for age, with resultant ventricular and sulcal prominence. There are periventricular and deep white matter chronic small vessel ischemic changes. Probable lacunar infarct in the right frontal white matter. There is intracranial internal carotid artery atherosclerosis. Skull and face: Bilateral minimally displaced nasal bone fractures of uncertain chronicity. Calvarium and visualized facial bones appear intact, without suspicious lesions. Sinuses: Visualized sinuses and mastoids are clear. IMPRESSION: 1. No acute intracranial abnormalities. 2. Cerebral volume loss and chronic microvascular ischemic changes. Dictated by: Jose F Tolliver M.D. on 09/29/2019 at 20:52 Approved by: Jose F Tolliver M.D. on 09/29/2019 at 20:56 ECG Data Attestation: I personally reviewed and interpreted this ECG as follows: Interpretation: EKG at 8:36 p.m., atrial fibrillation with ventricular rate 73, known history of atrial fibrillation EKG essentially unchanged from December 16, 2017 at 5:25 p.m. MDM Narrative Medical decision making narrative: No tPA at this time. Patient is on warfarin as well as timeframe course over at least 2 days. Stroke Core Measures Exclusion Criteria TPA in CVA: Symptom Onset >3 or 4.5 Hours Discharge Plan Departure Patient Disposition: Admitted As Inpatient Clinical Impression: Transient cerebral ischemia Qualifiers: Transient cerebral ischemia type: unspecified Qualified Code(s): G45.9 - Transient cerebral ischemic attack, unspecified
[2019-09-29 20:27] LABS: Add Manual Diff / Slide Review NO; Basophils Absolute Auto 0 /uL (0-100); Basophils Percent Auto 0.4 % (0-2); Eosinophils Absolute Auto 100 /uL (0-450); Eosinophils Percent Auto 1.6 % (2-4); Hematocrit 42.1 % (41-53); Hemoglobin 13.8 g/dL (13.5-17.5); Lymphocytes Absolute Auto 1500 /uL (1100-4500); Lymphocytes Percent Auto 23.4 % (25-40); Mean Corpuscular HGB Conc 32.8 % (30-36); Mean Corpuscular Hemoglobin 30.5 PG (26-34); Mean Corpuscular Volume 93.1 fL (80-100); Monocytes Absolute Auto 600 /uL (0-900); Monocytes Percent Auto 9.2 % (3-14); Neutrophils Absolute Auto 4100 /uL (1500-7000); Neutrophils Percent Auto 65.4 % (50-75); Platelet Count 169 X10^3/uL (150-400); Red Blood Cell Count 4.52 X10^6/uL (4.5-5.9); Red Cell Distribution Width 15.9 % (11.6-14.8); White Blood Cell Count 6.3 X10^3/uL (4.5-11.0)
[2019-09-29 20:30] LABS: PTT Partial Thromboplastin Tim 33 SECONDS (26.4-36.2)
[2019-09-29 20:32] LABS: Alanine Aminotransferase 7 IU/L (<50); Albumin 4.1 g/dL (3.5-5.0); Albumin Globulin Ratio 1.5 (1.0-2.8); Alkaline Phosphatase 51 U/L (38-126); Aspartate Aminotransferase 39 IU/L (17-59); BUN Creatinine Ratio 34.6 (6-22); Bilirubin Total 0.6 mg/dL (0.2-1.3); Blood Urea Nitrogen 27 mg/dL (9-20); Calcium 9.2 mg/dL (8.4-10.2); Carbon Dioxide 28 mmol/L (22-32); Chloride 105 mmol/L (98-107); Creatine Kinase 187 U/L (55-170); Estimated Glomerular Filt Rate > 60.0 mL/min (>60); Globulin 2.8 g/dL (1.7-4.1); Glucose 108 mg/dL (80-110); Potassium 4.3 mmol/L (3.4-5.1); Sodium 138 mmol/L (137-145); Total Protein 6.9 g/dL (6.3-8.2)
[2019-09-29 20:44] LABS: Troponin I < 0.012 ng/mL (0.01-0.034)
[2019-09-29 20:47] LABS: CKMB % Relative Index 0.9 % (1.5-5.0); HEMOLYSIS 19 (0-50)
[2019-09-29 21:36] LABS: INR 1.7 (0.9-1.3); Prothrombin Time 19.9 SECONDS (10.1-12.7)
[2019-09-30] VITALS (13 sets, daily range): BP systolic 123–199; BP diastolic 60–94; PULSE 58–71; RESP 11–18; TEMP 36.3–37.2; O2SAT 96–99; BMI 26.9
[2019-09-30 00:21] LABS: Appearance Urine UA CLEAR; Bacteria Urine None Seen; Bilirubin Urine UA NEGATIVE (NEGATIVE); Color Urine UA YELLOW; Glucose Urine UA NEGATIVE (Negative); Ketones Urine UA TRACE (NEGATIVE); Leukocyte Esterase Urine UA NEGATIVE (NEGATIVE); Nitrite Urine UA NEGATIVE (Negative); Occult Blood Urine UA NEGATIVE (Negative); Protein Urine UA NEGATIVE (Negative); RBC Urine None Seen (0-5/HPF); Urobilinogen Urine UA 0.2 E.U./dL (0.2); WBC Urine None Seen (0-5/HPF); pH Urine UA 6.5 (4.5-8.0)
[2019-09-30] MEDS: ASPIRIN 81 MG CHEW TAB 324 MG PO (00:38)
[2019-09-30 00:40] LABS: Culture Indicated Urine Cult Not Indicated; Urine Comments Microscopic Normal
--- NOTE | 2019-09-30 01:44 | DI.MRI.S_ITS ---
PROCEDURE: MR HEAD/BRAIN WO CON INDICATIONS: TIA TECHNIQUE: Non-contrast axial T1 spin echo, axial T2 fast spin echo, sagittal and axial FLAIR, coronal T2 fast spin echo, axial gradient echo, axial diffusion and ADC through the brain. COMPARISON: None. FINDINGS: Image quality: Degraded by motion artifact. CSF spaces: Ventricles appear symmetric in size and shape. Basal cisterns are patent. No extra-axial fluid collections. Brain: No intracranial bleeds or mass effects. There is cerebral volume loss for age. There are periventricular and deep white matter chronic small vessel ischemic changes. Brainstem appears normal. Diffusion-weighted images show no acute ischemic insults. No chronic ischemic insults. Normal intravascular flow voids are present. Skull and face: Calvarial bone marrow is normal in signal. Orbits are normal. Sinuses: Sinuses and mastoids are clear. IMPRESSION: 1. Limited evaluation secondary to motion artifact. 2. Volume loss and small vessel ischemic disease. 3. No recent infarct. Dictated by: Tonie Granger M.D. on 09/30/2019 at 10:52 Approved by: Tonie Granger M.D. on 09/30/2019 at 10:53
[2019-09-30 02:31] LABS: COVID19 -Nasal RAPID Negative (Negative)
[2019-09-30 05:12] LABS: Add Manual Diff / Slide Review NO; Basophils Absolute Auto 0 /uL (0-100); Basophils Percent Auto 0.7 % (0-2); Eosinophils Absolute Auto 100 /uL (0-450); Eosinophils Percent Auto 2.3 % (2-4); Hematocrit 42.2 % (41-53); Lymphocytes Absolute Auto 1800 /uL (1100-4500); Lymphocytes Percent Auto 32.3 % (25-40); Mean Corpuscular HGB Conc 33.3 % (30-36); Mean Corpuscular Hemoglobin 30.6 PG (26-34); Monocytes Absolute Auto 500 /uL (0-900); Monocytes Percent Auto 9.2 % (3-14); Neutrophils Absolute Auto 3200 /uL (1500-7000); Neutrophils Percent Auto 55.5 % (50-75); Platelet Count 156 X10^3/uL (150-400); Red Blood Cell Count 4.59 X10^6/uL (4.5-5.9); Red Cell Distribution Width 15.7 % (11.6-14.8); White Blood Cell Count 5.7 X10^3/uL (4.5-11.0)
[2019-09-30 05:17] LABS: INR 1.8 (0.9-1.3); Prothrombin Time 20.9 SECONDS (10.1-12.7)
[2019-09-30 05:22] LABS: BUN Creatinine Ratio 27.8 (6-22); Blood Urea Nitrogen 22 mg/dL (9-20); Calcium 8.9 mg/dL (8.4-10.2); Carbon Dioxide 28 mmol/L (22-32); Chloride 104 mmol/L (98-107); Estimated Glomerular Filt Rate > 60.0 mL/min (>60); Glucose 103 mg/dL (80-110); HEMOLYSIS < 15 (0-50); Potassium 3.9 mmol/L (3.4-5.1); Sodium 137 mmol/L (137-145)
[2019-09-30 05:34] LABS: Troponin I 0.019 ng/mL (0.01-0.034)
[2019-09-30] MEDS: lisinopriL 10 MG TABLET PO (06:15)
--- NOTE | 2019-09-30 07:45 | PM.HP.1 ---
History of Present Illness History of Present Illness Date Patient Seen: 09/30/19 Time Patient Seen: 07:45 Chief complaint: TIA Narrative: 79-year-old male with Parkinson's disease with Parkinson's dementia lives at home with his . His says over the last the 2 days he has had a couple of episodes 1 2 days ago where he became confused disoriented a little bit combative. She said he had a difficult time with some of his speech and moving his right hand. She has that got a little bit better and then today when they were at [employer] patient had a similar episode of confusion and combativeness. She then was concerned that maybe 1 of his pupils was a different size she thought maybe there was some difficulty with moving some of his face. She became concerned. I happened to be in the neighborhood who walking by the house and she came out and grab me. On evaluation the patient on my arrival he was disoriented. Confused. He had a little bit garbled speech but that was probably due to his Parkinson's. Appreciated maybe some subjective weakness to the left side of his face and some gentle weakness to his right arm. The time after discussing with his EMS was called and they responded to the patient. Patient was confused enough that he had a hard time getting in and out of the car she said and would not get in the car with her he even though that she wanted to bring him into the emergency department earlier. Since the hospital admission patient does not recognize me this morning as he did yesterday. Patient is confused. Patient has obvious tremor. Do not see the initial a FX of the left facial weakness that I saw yesterday. Do not appreciate any further right-sided arm weakness as well. Laboratory testing in the emergency department was unrevealing and CT scan of his head showed no acute findings. Patient states he has a little bit hungry this morning. He has no subjective complaints of pain such as headache dizziness chest pain shortness of breath having no difficulty with urination. No bowel movement yet Patient History Medical History Acne (Chronic) Arthritis (Acute) Asthma (Chronic ~1999) Atrial fibrillation (Chronic) Chicken pox (Resolved ~194) Chronic back pain (Chronic ~1979) Dementia (Acute) Depression (Chronic ~2011) Easy bruisability (Acute) Enlarged prostate (Acute) Former smoker (Acute) Hearing loss (Chronic) Hypertension (Chronic) Measles (Resolved) Mumps (Resolved ~1950) Osteoarthritis (Chronic) Peptic ulcer disease (Chronic ~1970) Pulmonary embolism (Chronic ~2009) Recurrent sinusitis (Chronic) Seasonal allergies (Chronic ~194) Shoulder pain (Chronic ~2013) Skin cancer (Chronic ~1979) Skin lesions (Acute) Sleep apnea (Chronic ~1959) Surgical History History of arthroscopic knee surgery (Resolved) History of arthroscopic surgery of shoulder (Resolved) History of knee replacement Status post laparoscopic cholecystectomy Family & Social History Family History Father Heart disease Mother Alcohol abuse Social History: household members spouse Prior Living Arrangements House Safety & Behavioral: Feels Safe in Current Yes Environment Been Physically Hurt or No Threatened By a Person Suicidal Ideation Description None Suicide Plan Description No Plan Tobacco & Substance use: Smoking Status Former smoker alcohol intake never Substance Use Type does not use Meds Home Medications and Allergies Home Medications Medication Instructions Recorded Confirmed Type omega-3 fatty acids [Fish Oil 1,200 mg PO DAILY #0 05/14/11 09/30/19 History Concentrate] memantine [Namenda] 10 mg PO BID #0 05/15/17 09/30/19 History carbidopa 25 mg-levodopa 100 mg 2 tab PO TID 09/23/18 09/30/19 History tablet mvdpxmqg-[id number]-ddoqg acid 300 1 tab PO DAILY 09/23/18 09/30/19 History mcg-lycopene 600 mcg-lutein 300 mcg tablet rivastigmine 13.3 mg/24 hour 13.3 mg TRANSDERMAL DAILY 09/23/18 09/30/19 History transdermal patch warfarin 5 mg tablet 5 mg PO SEE INSTRUCTIONS #180 tab 02/09/19 09/30/19 Rx tamsulosin 0.4 mg capsule See Rx Instructions .ROUTE 02/23/19 09/30/19 Rx .COMPLEX #90 capsule finasteride 5 mg tablet 5 mg PO DAILY #90 tab 04/20/19 09/30/19 Rx pimavanserin 34 mg capsule 34 mg PO DAILY 07/08/19 09/30/19 History Allergies Allergy/AdvReac Type Severity Reaction Status Date / Time oxycodone [OXYCODONE] Allergy Mild HIVES Verified 09/07/19 13:57 acetaminophen [From PERCOCET] Allergy Unknown Verified 09/07/19 13:57 adhesive [ADHESIVE] Allergy Unknown Verified 09/07/19 13:57 Exam Vital Signs (past 8 hours): - 09/30/19 00:00 09/30/19 00:15 09/30/19 00:30 Temperature Pulse Rate 64 58 L 62 Respiratory Rate 11 L 12 Blood Pressure 180/83 H 185/94 H 171/94 H Pulse Oximetry 09/30/19 01:50 09/30/19 03:08 09/30/19 05:00 Temperature 98.9 F 97.7 F Pulse Rate 67 62 67 Respiratory Rate 18 18 18 Blood Pressure 199/85 H 198/83 H 186/92 H Pulse Oximetry 99 97 97 09/30/19 06:15 Temperature Pulse Rate 70 Respiratory Rate Blood Pressure 186/92 H Pulse Oximetry Oxygen Delivery Method Room Air Oxygen Flow Rate 0 Objective Labs Result Diagrams: 09/30/19 05:00 09/30/19 05:00 Labs: Laboratory Results - last 24 hr 09/29/19 09/29/19 09/29/19 20:22 20:22 20:22 WBC 6.3 RBC 4.52 Hgb 13.8 Hct 42.1 MCV 93.1 MCH 30.5 MCHC 32.8 RDW 15.9 H Plt Count 169 Neut % (Auto) 65.4 Lymph % (Auto) 23.4 L [place] % (Auto) 9.2 Eos % (Auto) 1.6 L Baso % (Auto) 0.4 Neut # (Auto) 4100 Lymph # (Auto) 1500 [place] # (Auto) 600 Eos # (Auto) 100 Baso # (Auto) 0 PT INR APTT 33 D Sodium 138 Potassium 4.3 Chloride 105 Carbon Dioxide 28 BUN 27 H Creatinine 0.78 Estimated GFR > 60.0 BUN/Creatinine Ratio 34.6 H Glucose 108 Calcium 9.2 Total Bilirubin 0.6 AST 39 ALT 7 Alkaline Phosphatase 51 Total Creatine Kinase 187 H CK-MB (CK-2) 1.70 CK-MB (CK-2) Rel Index 0.9 L Troponin I < 0.012 Total Protein 6.9 Albumin 4.1 Globulin 2.8 Albumin/Globulin Ratio 1.5 Urine Color Urine Appearance Urine pH Ur Specific [place] Urine Protein Urine Glucose (UA) Urine Ketones Urine Occult Blood Urine Nitrate Urine Bilirubin Urine Urobilinogen Ur Leukocyte Esterase Urine RBC Urine WBC Urine Bacteria Ur Culture Indicated? Micro UA Comment COVID-19 PCR 09/29/19 09/29/19 09/30/19 20:22 23:10 00:40 WBC RBC Hgb Hct MCV MCH MCHC RDW Plt Count Neut % (Auto) Lymph % (Auto) [place] % (Auto) Eos % (Auto) Baso % (Auto) Neut # (Auto) Lymph # (Auto) [place] # (Auto) Eos # (Auto) Baso # (Auto) PT 19.9 H INR 1.7 H APTT Sodium Potassium Chloride Carbon Dioxide BUN Creatinine Estimated GFR BUN/Creatinine Ratio Glucose Calcium Total Bilirubin AST ALT Alkaline Phosphatase Total Creatine Kinase CK-MB (CK-2) CK-MB (CK-2) Rel Index Troponin I Total Protein Albumin Globulin Albumin/Globulin Ratio Urine Color Yellow Urine Appearance Clear Urine pH 6.5 Ur Specific [place] 1.020 Urine Protein Negative Urine Glucose (UA) Negative Urine Ketones Trace H Urine Occult Blood Negative Urine Nitrate Negative Urine Bilirubin Negative Urine Urobilinogen 0.2 Ur Leukocyte Esterase Negative Urine RBC None seen Urine WBC None seen Urine Bacteria None seen Ur Culture Indicated? Cult not indicated Micro UA Comment Microscopic normal COVID-19 PCR Cancelled 09/30/19 09/30/19 09/30/19 00:40 05:00 05:00 WBC 5.7 RBC 4.59 Hgb 14.0 Hct 42.2 MCV 92.0 MCH 30.6 MCHC 33.3 RDW 15.7 H Plt Count 156 Neut % (Auto) 55.5 Lymph % (Auto) 32.3 [place] % (Auto) 9.2 Eos % (Auto) 2.3 Baso % (Auto) 0.7 Neut # (Auto) 3200 Lymph # (Auto) 1800 [place] # (Auto) 500 Eos # (Auto) 100 Baso # (Auto) 0 PT 20.9 H INR 1.8 H APTT Sodium Potassium Chloride Carbon Dioxide BUN Creatinine Estimated GFR BUN/Creatinine Ratio Glucose Calcium Total Bilirubin AST ALT Alkaline Phosphatase Total Creatine Kinase CK-MB (CK-2) CK-MB (CK-2) Rel Index Troponin I Total Protein Albumin Globulin Albumin/Globulin Ratio Urine Color Urine Appearance Urine pH Ur Specific [place] Urine Protein Urine Glucose (UA) Urine Ketones Urine Occult Blood Urine Nitrate Urine Bilirubin Urine Urobilinogen Ur Leukocyte Esterase Urine RBC Urine WBC Urine Bacteria Ur Culture Indicated? Micro UA Comment COVID-19 PCR Negative 09/30/19 09/30/19 05:00 05:00 WBC RBC Hgb Hct MCV MCH MCHC RDW Plt Count Neut % (Auto) Lymph % (Auto) [place] % (Auto) Eos % (Auto) Baso % (Auto) Neut # (Auto) Lymph # (Auto) [place] # (Auto) Eos # (Auto) Baso # (Auto) PT INR APTT Sodium 137 Potassium 3.9 Chloride 104 Carbon Dioxide 28 BUN 22 H Creatinine 0.79 Estimated GFR > 60.0 BUN/Creatinine Ratio 27.8 H Glucose 103 Calcium 8.9 Total Bilirubin AST ALT Alkaline Phosphatase Total Creatine Kinase CK-MB (CK-2) CK-MB (CK-2) Rel Index Troponin I 0.019 Total Protein Albumin Globulin Albumin/Globulin Ratio Urine Color Urine Appearance Urine pH Ur Specific [place] Urine Protein Urine Glucose (UA) Urine Ketones Urine Occult Blood Urine Nitrate Urine Bilirubin Urine Urobilinogen Ur Leukocyte Esterase Urine RBC Urine WBC Urine Bacteria Ur Culture Indicated? Micro UA Comment COVID-19 PCR Assessment & Plan Assessment & Plan narrative: 79-year-old male with Parkinson's and Parkinson's related that Lewy body dementia. Patient was admitted to the hospital because of increasing confusion combativeness left-sided facial weakness as well as right arm weakness. On initial evaluation. Symptoms have now completely resolved. Patient had a normal CT scan in the emergency department. Patient is confused. Maybe worse than his normal baseline. Current recommendations were further workup and management evaluation of possible cerebrovascular accident. Patient's blood pressure is quite high so we will gently lower this while he is here in the hospital. Twelve a further workup with an MRI stroke protocol of his brain further evaluation with an echocardiogram as he has atrial fibrillation he is on anticoagulation but would like to rule out inter underlying cardiac defects. Like to have him work with physical therapy and occupational therapy for balance and walking. He will probably need some Ativan before his MRI due to his tremors. Dementia Parkinson's related due to Lewy body disease. Pronounced but significantly worse today with new acute mental status changes consistent with encephalopathy due to probably ischemic accident. Patient is more confused. Was at home and combative with his . Hopefully as we continue his workup this will improve. Parkinson's disease. Patient has advanced Parkinson's. Will continue with his home Parkinson's medication and not make changes to those at this time. Follows up movement disorder specialist at [facility]. Atrial fibrillation on chronic anticoagulation. Patient is on warfarin. His INR stable will continue warfarin his heart rates it under control although his blood pressure is a little bit high. Will monitor his INR. Obtain an echocardiogram to rule out any significant hot related disorder in the heart. BPH. Patient with urinary obstruction at times. Patient is on Flomax as well as Proscar. Seems to be voiding well without residual this morning. Will continue his medications for this. COVID-19 screening test with negative Disposition and plan. Obtain physical therapy occupational therapy. Further workup for evaluation of his potential cerebrovascular accident with an MRI scan today echocardiogram. Patient is still quite confused disoriented and a little bit combative at times. His blood pressures unstable E high. Will work on blood pressure management. Anticipate being hospitalized for greater than 48 hours. Quality VTE Deep Vein Thrombosis/Pulmonary Embolism Present on Admission: Yes
--- NOTE | 2019-09-30 10:12 | SLP.IPNOTE ---
ST orders received. INTERIOR DESIGN PROGRAM CHAIR attempted speech therapy evaluation, however, it was determined that patient was unable to fully participate due to increased confusion and lethargy. Patient reported that he did not sleep well last night. Spoke to nursing who reported that patient will be receiving an MRI this morning or early afternoon. Patient may receive a sedative before MRI. Plan to call nursing later today to determine if patient is appropriate to be seen this afternoon or wait until tomorrow morning (10/01/19) to re-attempt speech therapy evaluation. -Felisa Medrano MS, CF-INTERIOR DESIGN PROGRAM CHAIR
[2019-09-30] MEDS: LORazepam 2 MG/ML INJ 1 MG IV (10:30)
--- NOTE | 2019-09-30 11:24 | DI.ECHO.S_ITS ---
Echocardiogram Report + + :Name: NELSON BLANTON Study Date: 09/30/2019 Height: 72 in : :Hospital Weight: 198 lb : : Gender: Male BSA: 2.1 m2 : :: 1940 Age: 79 yrs BP: 198/83 mmHg: :Reason For Study: TIA : :Ordering Physician: [place] : :Hospitalist Performed By: Felisa Manning : :Referring: JEAN-PAUL LANGLEY : + + Interpretation Summary The patient was in atrial fibrillation with heart rates between 54-65 bpm during the exam. The left ventricle is normal in size. The ejection fraction is estimated to be 60-65%. There has been no significant change in LVEF since the previous exam. The right ventricle is normal in size and function. There is mild to moderate mitral regurgitation. Compared to the prior echo study, there has been an increase in the severity of mitral regurgitation. The aortic valve is moderately calcified. There is no hemodynamically significant valvular aortic stenosis. There is mild aortic regurgitation. There is aortic root sclerosis/calcification. Procedure: A two-dimensional transthoracic echocardiogram with color flow and Doppler was performed. The study quality was technically adequate. Comparison is made with the echocardiogram of 01/09/2018. The patient was in atrial fibrillation with heart rates between 54-65 bpm during the exam. Left Ventricle: The left ventricle is normal in size. There is normal left ventricular wall thickness. There is no thrombus. A false chord is noted (normal variant). The ejection fraction is estimated to be 60-65%. There has been no significant change since the previous exam. There are no focal wall motion abnormalities. Diastolic function could not be accurately assessed due to atrial fibrillation. Right Ventricle: The right ventricle is normal in size and function. Atria: The left atrium is severely dilated. The left atrium has remained unchanged in size since the prior echo exam. Right atrial size is normal. There is no Doppler evidence for an interatrial shunt. Mitral Valve: The mitral valve is grossly normal. There is mild mitral annular calcification. Redundant elongated chordae are noted. There is mild to moderate mitral regurgitation. Compared to the prior echo study, there has been an increase in the severity of mitral regurgitation. Aortic Valve: The aortic valve is trileaflet. The aortic valve is moderately calcified. There is moderate aortic valve sclerosis. There is no hemodynamically significant valvular aortic stenosis. There is mild aortic regurgitation. Tricuspid Valve: The tricuspid valve is normal in structure and function. Pulmonary artery pressures cannot be estimated because of the lack of a measurable TR jet velocity. There is trace tricuspid regurgitation. Pulmonic Valve: The pulmonic valve is not well visualized. Great Vessels: The aortic root is normal size. There is aortic root sclerosis/calcification. The ascending aorta is normal in size. The IVC has a measurement of 1.9 mm. Pericardium/ Pleura There is no pericardial effusion. There is no pleural effusion. MMode/2D Measurements & Calculations LVIDd: 5.0 cm LVOT diam: 2.2 cm LVIDs: 3.3 cm Ao root diam: 3.1 cm FS: 34.9 % asc Aorta Diam: 3.3 cm EPSS: 0.94 cm IVSd: 0.93 cm LVPWd: 1.1 cm LV stevens. diameter/BSA (cm/m^2): 2.4 LV sys. diameter/BSA (cm/m^2): 1.5 LA A2 area: 29.0 cm2 RA long axis: 5.3 cm LA A4 area: 27.2 cm2 RA area: 19.0 cm2 LA length (vol): 6.3 cm RA vol: 58.1 ml LA vol: 105.7 ml RA : 27.4 ml/m2 LA vol index: 49.8 ml/m2 IVC diam: 1.9 cm RVD1 (basal): 3.7 cm TAPSE: 1.8 cm Doppler Measurements & Calculations Ao V2 max: 203.5 cm/sec LVOT Max Alfredo: 89.8 cm/sec Ao V2 mean: 136.3 cm/sec LV V1 max P.2 mmHg Ao max P.6 mmHg LV V1 VTI: 19.6 cm Ao mean P.7 mmHg JERZY(I,D): 1.7 cm2 Ao V2 VTI: 41.3 cm JERZY(V,D): 1.6 cm2 sev ratio: 0.48 JERZY indexed to BSA (cm^2/m^2): 0.82 MV E max alfredo: 112.1 cm/sec PA V2 max: 67.4 cm/sec Med Peak E' Alfredo: 10.9 cm/sec PA V2 mean: 41.4 cm/sec E/E' med: 10.3 PA mean P.84 mmHg Lat Peak E' Alfredo: 11.5 cm/sec PA pr(Accel): 15.6 mmHg E/E' lat: 9.7 E/e' average: 10.0 MV dec time: 0.19 sec SV(LVOT): 71.7 ml Reading Physician:12:33 PM
--- NOTE | 2019-09-30 11:41 | CM.DANOTE ---
DCP: Case received, EMR reviewed. Met briefly with patient, and spoke to patient's briefly over the phone. Introduced self and role. Obtained information on patient from patient's EMR, and some history from Dr. Burgos. DCP assessment completed with information currently available. Patient is a 79 year old male who admitted early this morning to the care of the hospitalist team. PCP: Dr. Burgos. Payer: confirmed: Medicare/[facility]. Patient came to the hospital via ambulance secondary to increased confusion, and weakness. Patient is being evaluated here to rule out CVA. He has history of Parkinson's, and Lewy Body Dementia. , Tess, is primary caregiver. has mentioned to nursing staff that he has been getting more combative lately, and hard to care for. indicated that he is on waiting list for a facility, but will plan on having this conversation with spouse. Patient having MRI today. Met him briefly in his room, pleasant, answered yes to certain questions, such as living with his . He is supposed to be working with P.T. At this time, he is OBS status, and it is uncertain if he will make inpatient criteria. Patient depends on for care needs, and taking to appointments. P: DCP to follow, and will meet with . Patient can go home with home health, and can go over more resources with patient's . Christina Sharp RN/Offset Press Operator
[2019-09-30 11:50] LABS: Troponin I 0.015 ng/mL (0.01-0.034)
--- NOTE | 2019-09-30 12:02 | PT-IP ANOTE ---
checked with nurse and stated that pt is not appropriate to do PT this morning. stated that pt has increase confusion and agitation and will not be able to participate with PT this morning. will check back in the afternoon.
--- NOTE | 2019-09-30 12:30 | PT.IIE ---
Surgical History (Last Reviewed 09/30/19 @ 07:48 by Addi Burgos MD) History of arthroscopic knee surgery (Resolved) History of arthroscopic surgery of shoulder (Resolved) History of knee replacement Status post laparoscopic cholecystectomy Medical History (Last Reviewed 09/30/19 @ 07:45 by Addi Burgos MD) Acne (Chronic) Arthritis (Acute) Asthma (Chronic ~1999) Atrial fibrillation (Chronic) Chicken pox (Resolved ~1947) Chronic back pain (Chronic ~1979) Dementia (Acute) Depression (Chronic ~2011) Easy bruisability (Acute) Enlarged prostate (Acute) Former smoker (Acute) Hearing loss (Chronic) Hypertension (Chronic) Measles (Resolved) Mumps (Resolved ~1950) Osteoarthritis (Chronic) Peptic ulcer disease (Chronic ~1969) Pulmonary embolism (Chronic ~2009) Recurrent sinusitis (Chronic) Seasonal allergies (Chronic ~1941) Shoulder pain (Chronic ~2013) Skin cancer (Chronic ~1979) Skin lesions (Acute) Sleep apnea (Chronic ~1959) Physical Therapy Inpatient Evaluation/Re-Eval M1 PT/OT-IP Prior Functional Status Start: 09/30/19 13:33 Freq: NEEDED Status: Active Protocol: Document 09/30/19 12:30 AB (Rec: 09/30/19 13:59 AB [id number]) Medical Review Prior Functional Status Medical History Reviewed Yes Communication inconsistent with verbalizing needs and answering questions; has difficulty making eye contact and requires cues to do so Mobility and Gait Spouse stated that she has been assisting pt at home; pt usually requires SBA with mobilities but spouse stated that pt is not steady. Activities of Daily Living and IADL's spouse assists pt with showers Social History Household Members spouse Living Arrangements House Number of Floors (Floors) 3 or More Floors Number of Stairs To Enter/Railing? pt lives in a split level house: has 6 steps to enter the front door without rails ; has 4 steps with R rail ascending to get to main level of the house spouse stated that there are no steps to get into the house from the garage but has more steps from the garage to get to first level and then into the main living area. Home Environment High Toilet,Walk in Shower,Tub /Shower Home Equipment Shower Seat with Backrest,Hand Held Shower Additional Social History Comment pt has an adjustable bed. M2 PT-IP Current Condition Start: 09/30/19 13:33 Freq: NEEDED Status: Active Protocol: Document 09/30/19 12:30 AB (Rec: 09/30/19 13:59 AB [id number]) Physical Therapy Current Condition Current Condition Evaluation Date 09/30/19 Treatment Diagnosis TIA; PD; dementia; difficulty in walking Onset Date 09/30/19 Precautions Other Precautions falls M3 PT-IP Subjective Start: 09/30/19 13:33 Freq: NEEDED Status: Active Protocol: Document 09/30/19 12:30 AB (Rec: 09/30/19 13:59 AB [email or web address]) Subjective Physical Therapy Visit Type Type Initial Evaluation Visit Start Time 12:30 Visit Stop Time 13:01 Total Visit Minutes 31 Number of INDUSTRIAL ECONOMIST Visits 0 Physical Therapy Visit Comments Patient Comments spouse in room with pt M4 PT-IP Mobility and Gait Start: 09/30/19 13:33 Freq: NEEDED Status: Active Protocol: Document 09/30/19 12:30 AB (Rec: 09/30/19 13:59 AB [id number]) PT-Bed Mobility Assessment Supine to Sit Supine to Sit Maximum Assistance,1 Person Assistance,2 Person Assistance Scooting Scooting to Edge of Bed Maximum Assistance PT-Transfer Assessment Sit to and From Stand Sit to and from Stand Maximum Assistance,2 Person Assistance,Use of Upper Extremities Equipment Transfer Assistive Device None,Gait Belt,Front Wheeled Walker Orthotic/Prosthetic Devices or Brace: Yes Transfers Transfer Destination Chair Transfer Technique ambulated Transfer Ability Level of Assist Maximum Assistance,2 Person Assistance,Use of Upper Extremities Comments Mobility Comments pt supine in bed. requires max cues with all tasks; pt with difficulty making eye contact. completed supine to sit max A x 1-2 and max cues. pt required mod A to maintain sitting balance on EOB. required max A and max cues to scoot to EOB. completed sit to stand max A x 2 and max cues. pt was able to stand using FWW max A and cues, took ~ 2 steps with FWW but pt unable to use FWW properly. ambulated with ROUTE AIDE max A x 2 and max cues. pt presents with unsteady gait with slight R knee buckling but with recovery and requires assist. requires assist with weight shifting. pt assisted to chair. positioned on chair. call light and table placed within reach. informed spouse regarding SNF recommendation and spouse agreed. Gait Assessment Gait Gait Assistance Required: Maximum Assistance,2 Person Assist Distance (Feet) 20 Able to Maintain Weight Bearing Status Yes During Gait Assistive Devices Assistive Device Gait Belt Orthotic/Prosthetic Devices or Brace: No Gait Deviations General Gait Pattern Antalgic,Decreased Stride Length,Decreased Feet Clearance,Step-to Gait Factors Limiting Gait Function Factors Limiting Gait Function Decreased Activity Tolerance, Decreased Strength,Difficulty Following Directions,Poor Balance,Poor Safety Awareness Comments Gait Comments attempted ambulation using FWW initially and pt was able to take ~ 2 steps but unable to use FWW properly and has difficulty following directions. ambulated with ROUTE AIDE max A x 2 and max cues and completed 20 ft . PT-Balance Assessment Sitting Balance and Reactions Static Sitting Balance Ability Fair Dynamic Sitting Balance Ability Fair Standing Balance and Reactions Static Standing Balance Ability Poor Dynamic Standing Balance Ability Poor Device Used without AD M5 PT-IP Objective Assessments Start: 09/30/19 13:33 Freq: NEEDED Status: Active Protocol: Document 09/30/19 12:30 AB (Rec: 09/30/19 13:59 AB [id number]) Gross Range of Motion Lower Extremity ROM Assessment Within Functional Limits Strength Lower Extremity Strength Assessment Right Impaired Hip 3+/5 Knee 3+/5 M6 PT-IP Treatment Start: 09/30/19 13:33 Freq: NEEDED Status: Active Protocol: Document 09/30/19 12:30 AB (Rec: 09/30/19 13:59 AB [id number]) Physical Therapy Treatment Education Education Provided Safety M7 PT-IP Assessment and Plan Start: 09/30/19 13:33 Freq: NEEDED Status: Active Protocol: Document 09/30/19 12:30 AB (Rec: 09/30/19 13:59 AB [id number]) PT Summary Assessment and Plan Potential Rehabilitation Potential Fair Status of Condition at Evaluation Evolving Summary Impairments Pain,ROM,Strength,Balance, Coordination,Sensation,Tone, Cognition,Bed Mobility, Transfers,Gait,Activity Tolerance Assessment Summary pt requiring max A x 2 and max cues with all tasks. pt will require SNF rehab to improve strength and mobility and decrease burden of care. Goals Bed Mobility Goal Contact Guard Assistance Transfer Goal Contact Guard Assistance Gait Goal Contact Guard Assistance Gait Distance 50 Days to Meet Goals 10 Frequency of Treatment Frequency Of Treatment Once a Day Treatment Plan Physical Therapy Treatment Plan Bed Mobility Training,Transfer Training,Gait Training, Therapeutic Exercise,Balance Retraining,Discharge Planning, Neuromuscular Re-ed Recommendations To Nursing Amount of Assist Needed 2 Person Assist Discharge Recommendations PT Discharge Recommendations SNF Rehab Transportation Needs at Discharge Wheelchair/Cabulance
--- NOTE | 2019-09-30 13:28 | CM.DPC ---
Addendum entered by Christina Sharp R.N. 09/30/19 15:38: Spoke to Olamide at [facility], stated that is ok with patient going to [facility], she will be filling out paper work in the morning. Called Dr. Burgos's office, and updated his triage nurse, Clau. She will let him know. Addendum entered by Christina Sharp R.N. 09/30/19 14:04: Went ahead and left August at [facility] a message to review patient as well. In the message let her know that this would be private pay, for he is OBS status. Also, let her know that [facility] has been contacted as well. Original Note: DCP Cont: Met with patient's , Tess, who was in the room. Gave her [facility] book, and list of home health/skilled facilities. Discussed OBS status and private pay, for P.T. is recommending that patient go to [facility]. is not concerned about the cost, stated that they do have the funds available. She had put her on the list for [facility] in [place]. Gave her listings of local assisted livings. Let her know that [facility] has openings, confirmed this with Olamide, the learning administrator. is interested in [facility]. Spoke to Olamide and she gave permission to have patient's call her. She stated that Ashwini from [facility] can come over and evaluate patient today if needed. may want to tour facility. Confirmed with Sonny Becerril that patient is currently a two person max assist. [facility] would be able to use their P.T. that they use at [facility]. P:Faxed over face sheet, H&P, ER visit, and COVID results to Olamide's fax number. She will review. Will follow up with Olamide later today. Will attempt to focus on discharge tomorrow. Christina Sharp RN/[employer]
[2019-09-30] MEDS: CARBIDOPA-LEVODOPA 25/100 TABLET 2 EACH PO (14:34)
[2019-09-30] MEDS: WARFARIN 5 MG TABLET 10 MG PO (17:02)
--- NOTE | 2019-09-30 18:16 | OT.IP.EVAL ---
Past Medical History (Last Reviewed 09/30/19 @ 07:45 by Addi Burgos MD) Acne (Chronic) Arthritis (Acute) Asthma (Chronic ~1999) Atrial fibrillation (Chronic) Chicken pox (Resolved ~1947) Chronic back pain (Chronic ~1979) Dementia (Acute) Depression (Chronic ~2011) Easy bruisability (Acute) Enlarged prostate (Acute) Former smoker (Acute) Hearing loss (Chronic) Hypertension (Chronic) Measles (Resolved) Mumps (Resolved ~1950) Osteoarthritis (Chronic) Peptic ulcer disease (Chronic ~1969) Pulmonary embolism (Chronic ~2009) Recurrent sinusitis (Chronic) Seasonal allergies (Chronic ~1941) Shoulder pain (Chronic ~2013) Skin cancer (Chronic ~1979) Skin lesions (Acute) Sleep apnea (Chronic ~1959) Surgical History (Last Reviewed 09/30/19 @ 07:48 by Addi Burgos MD) History of arthroscopic knee surgery (Resolved) History of arthroscopic surgery of shoulder (Resolved) History of knee replacement Status post laparoscopic cholecystectomy Occupational Therapy Inpatient Evaluation/Re-Eval M1 PT/OT-IP Prior Functional Status Start: 09/30/19 18:17 Freq: NEEDED Status: Active Protocol: Document 09/30/19 18:18 [facility] (Rec: 09/30/19 19:00 [facility] [id number]) Medical Review Prior Functional Status Medical History Reviewed Yes Communication inconsistent with verbalizing needs and answering questions; has difficulty making eye contact and requires cues to do so Mobility and Gait Spouse stated that she has been assisting pt at home; pt usually requires SBA with mobilities but spouse stated that pt is not steady. Activities of Daily Living and IADL's spouse assists pt with showers Social History Household Members spouse Living Arrangements House Number of Floors (Floors) 3 or More Floors Number of Stairs To Enter/Railing? pt lives in a split level house: has 6 steps to enter the front door without rails ; has 4 steps with R rail ascending to get to main level of the house spouse stated that there are no steps to get into the house from the garage but has more steps from the garage to get to first level and then into the main living area. Home Environment High Toilet,Walk in Shower,Tub /Shower Home Equipment Shower Seat with Backrest,Hand Held Shower Additional Social History Comment pt has an adjustable bed. M2 OT-IP Current Condition Start: 09/30/19 18:17 Freq: Status: Active Protocol: Document 09/30/19 18:18 [facility] (Rec: 09/30/19 19:00 [facility] [id number]) Occupational Therapy Current Condition Current Condition Evaluation Date 09/30/19 Treatment Diagnosis TIA, dementia Parkinson's Diagnosis Onset Date 09/30/19 M3 OT- IP Subjective and Pain Start: 09/30/19 18:17 Freq: Status: Active Protocol: Document 09/30/19 18:18 [facility] (Rec: 09/30/19 19:00 [facility] [id number]) OT- Subjective Occupational Therapy Visit Type Type Initial Evaluation Visit Start Time 18:00 Visit Stop Time 18:16 Total Visit Minutes 16 Occupational Therapy Visit Comments Patient Comments Pt leaning to the right in the recliner and nursing agreed would be best to get pt back to bed. Patient/Caregiver Goals Pt's looking into pt going to [facility]. M4 OT- IP ADL's Start: 09/30/19 18:17 Freq: Status: Active Protocol: Document 09/30/19 18:18 [facility] (Rec: 09/30/19 19:00 [facility] [id number]) OT ADL-Grooming General Evaluation Grooming Ability Maximum Assistance Comments OT Grooming Comments Pt needing [place] assist to wash his face with completeness with left hand. OT ADL-Oral Care Comments Oral Care Comments Pt holding saliva in his mouth and not able to swallow or spit it out. Notified nursing and came in to suction his mouth out. OT ADL-Dressing General Eval Lower Body Dressing Ability Total Assistance Areas Needing Assistance Underpants/Brief,Socks Comments OT Dressing Comments Pt needing MAX A x2, to help roll side to side in the bed to assist with brief. OT ADL-Toileting General Evaluation Toileting Ability Total Assistance Areas Needing Assistance Manage Clothing,Perform Perineal Hygiene Comments OT Toileting Comments Pt is incontinent and needing a brief change. OT ADL-Bathing Comments OT Bathing Comments Total assist. M5 OT- IP IADL's Start: 09/30/19 18:17 Freq: Status: Active Protocol: Document 09/30/19 18:18 [facility] (Rec: 09/30/19 19:00 [facility] [id number]) OT-Instrumental Activities of Daily Living Deficits IADL Deficits Identified Deficits Home Safety Awareness Awareness of Need for Assistance at Home Decreased Awareness Ability to Problem Solve Emergency Unable to Problem Solve Situations Medication Management Medication Management Caregiver Administers Money Management Money Management Caregiver Provides Assistance Meal Preparation Meal Preparation Caregiver Provides Assist Copy Center Specialist Copy Center Specialist Caregiver Provides Assist Driving Driving Caregiver Provides Assist M6 OT- IP Functional Cognition Start: 09/30/19 18:17 Freq: Status: Active Protocol: Document 09/30/19 18:18 [facility] (Rec: 09/30/19 19:00 [facility] [id number]) Cognitive Factors Limiting Selfcare Function Cognitive Ability Level of Alertness Confusional State Patient Orientation Name Attention Span Ability Unable to Focus,Unable to Sustain Attention Ability to Follow Commands Able to Follow One Step Commands with Increased Time, Able to Follow One Step Commands with Repetition Memory Description Short Term Impaired,Supervisor/Port Director Impaired,Working Impaired Safety Awareness Underestimates Need for Assistance Problem Solving Ability Unable to Identify Errors, Needs Assist to Identify Solutions Cognitive Comments Cognitive Assessment Comments Pt just mainly orientated to his name. OT- Vision and Hearing OT- Vision Assessment Vision Assessment Comments Unable to fully assess due to his dementia. Pt able to look at therapist when spoken to. M7 OT- IP Mobility and Balance Start: 09/30/19 18:17 Freq: Status: Active Protocol: Document 09/30/19 18:18 [facility] (Rec: 09/30/19 19:00 [facility] [id number]) OT- Bed Mobility Assessment Rolling Type of Rolling Bilateral Level of Assistance Maximum Assistance Sit to Supine Sit to Supine Assist Maximum Assistance,1 Person Assistance OT-Transfer Assessment Sit to and From Stand Sit to and from Stand Maximum Assistance,2 Person Assistance Transfers Transfer Ability Maximum Assistance,2 Person Assistance Technique Transfer Destination Bed,Chair Transfer Technique Squat Pivot Devices Transfer Assistive Devices Gait Belt Comments Mobility Comments MAX AX 2 squat pivot to the left , MAXA x 1 to help get back to bed. While pt in supine trying to get to the edge of the bed and able to pull himself almost upright. Pt distracted and able to realize that he was having difficulty to control his saliva and was wet. M8 OT- IP Objective Assessments Start: 09/30/19 18:17 Freq: Status: Active Protocol: Document 09/30/19 18:18 [facility] (Rec: 09/30/19 19:00 [facility] [id number]) OT Strength Comments Strength Comments NOt able to fully assess due to pt's dementia and difficulty to follow commands. Pt's BUE at least 3-/5. M9 OT- IP Assessment and Plan Start: 09/30/19 18:17 Freq: Status: Active Protocol: Document 09/30/19 18:18 [facility] (Rec: 09/30/19 19:00 [facility] [id number]) OT Summary Assessment and Plan Potential Rehabilitation Potential Fair Analytic Complexity at Evaluation Low Summary OT Impairments Balance,Tone,Functional Cognition,Functional Mobility, Self-Feeding,Grooming,Dressing ,Toileting,Bathing,Toilet Transfers,Shower Transfers, Activity Tolerance Progress Towards Goals Slow Progress due to Medical Issues,Slow Progress due to Activity Tolerance,Slow Progress due to Cognition Assessment Summary Pt low complexity with dementia parkinson's now needing extensive assist x2 for transfers, ADl's, and not able to states his needs. Pt's looking to have pt go to [facility]. Pt would benefit from continued therapy there to maximize his mobility and ADl function as pt is far from baseline. Goals Self-Feeding Goal Moderate Assistance Grooming Goal Moderate Assistance Toileting Goal Moderate Assistance Bathing Goal Moderate Assistance Toilet Transfer Goal Moderate Assistance Shower Transfer Goal Moderate Assistance Days to Meet Goals 15 Frequency of Treatment Frequency Of Treatment Once a Day Treatment Plan OT Treatment Plan ADL Training,Functional Cognition Training,Functional Mobility,Patient/Family Education,Discharge Planning Other Treatment Recommendations and Next Assess self feeding Treatment Focus Discharge Recommendations OT Discharge Recommendations LTAC Other Discharge Recommendations Pt looking to go to [facility] Transportation Needs at Discharge Wheelchair/Cabulance,Stretcher /Ambulance
--- NOTE | 2019-09-30 18:40 | PC.NURSE ---
Addendum entered by Lexy Brooks R.N. 09/30/19 23:17: Paged Dr Macdonald about serial troponins, gave last 2 results of 0.015, new order to stop series. Addendum entered by Lexy Brooks R.N. 09/30/19 21:07: Patient agitated at HS med pass. Requesting to use toilet but when standing requesting to go back to bed. Attempted to give meds in a carrier, patient refused carrier and refused to take pills. Was able with assistance from DRAW [employer] to get patient into bed and reduced stimulation. present during this and is aware that patient would not take medications and was agitated. Now appears to be resting comfortably, will notify coordinator. Original Note: Pt alert to name and . Does not give meaningful responses to questions. Cannot make appropriate safety decisions, unable to use call light. No overt s/sx of cardiac, respiratory, or GI distress HR irregular. Saturating WNL on RA, lung sounds clear Incontinent of urine OT approached patient to evaluate and to transfer back to bed and found him to be pooling saliva in his mouth. Suctioned patients mouth with yankur and patient was able to verbalize once mouth was empty. After changing his brief was able to appear to rest comfortably. Needs assistance with oral intake. Took pills for this RN in a carrier. High fall risk d/t dementia, bed alarm on sensitive setting, in a view room.
[2019-09-30 20:22] LABS: Troponin I 0.015 ng/mL (0.01-0.034)
[2019-10-01 03:01] VITALS: BP 143/92; PULSE 72; RESP 18; TEMP 36.2; O2SAT 97
[2019-10-01] MEDS: SODIUM CHLORIDE 0.9% FLUSH 10 ML IV ×2 (06:08→08:34)
[2019-10-01 06:11] LABS: Add Manual Diff / Slide Review NO; Basophils Absolute Auto 0 /uL (0-100); Basophils Percent Auto 0.4 % (0-2); Eosinophils Absolute Auto 200 /uL (0-450); Eosinophils Percent Auto 2.3 % (2-4); Hematocrit 45.5 % (41-53); Lymphocytes Absolute Auto 2000 /uL (1100-4500); Lymphocytes Percent Auto 24.1 % (25-40); Mean Corpuscular HGB Conc 32.9 % (30-36); Mean Corpuscular Hemoglobin 30.6 PG (26-34); Monocytes Absolute Auto 800 /uL (0-900); Neutrophils Absolute Auto 5200 /uL (1500-7000); Neutrophils Percent Auto 63.2 % (50-75); Platelet Count 165 X10^3/uL (150-400); Red Blood Cell Count 4.89 X10^6/uL (4.5-5.9); Red Cell Distribution Width 16.2 % (11.6-14.8); White Blood Cell Count 8.3 X10^3/uL (4.5-11.0)
[2019-10-01 06:13] LABS: Prothrombin Time 22.9 SECONDS (10.1-12.7)
[2019-10-01 06:18] LABS: BUN Creatinine Ratio 23.8 (6-22); Blood Urea Nitrogen 19 mg/dL (9-20); Calcium 9.4 mg/dL (8.4-10.2); Carbon Dioxide 32 mmol/L (22-32); Chloride 105 mmol/L (98-107); Estimated Glomerular Filt Rate > 60.0 mL/min (>60); Glucose 105 mg/dL (80-110); HEMOLYSIS < 15 (0-50); Potassium 4.7 mmol/L (3.4-5.1); Sodium 140 mmol/L (137-145)
[2019-10-01 07:00] VITALS: O2SAT 95
--- NOTE | 2019-10-01 07:37 | P.DS_ITS ---
History of Present Illness History of Present Illness Chief complaint: TIA Narrative: 79-year-old male with Parkinson's disease with Parkinson's dementia lives at home with his . His says over the last the 2 days he has had a couple of episodes 1 2 days ago where he became confused disoriented a little bit combative. She said he had a difficult time with some of his speech and moving his right hand. She has that got a little bit better and then today when they were at [employer] patient had a similar episode of confusion and combativeness. She then was concerned that maybe 1 of his pupils was a di fferent size she thought maybe there was some difficulty with moving some of his face. She became concerned. I happened to be in the neighborhood who walking by the house and she came out and grab me. On evaluation the patient on my arrival he was disoriented. Confused. He had a little bit garbled speech but that was probably due to his Parkinson's. Appreciated maybe some subjective weakness to the left side of his face and some gentle weakness to his right arm. The time after discussing with his EMS was called and they responded to the patient. Patient was confused enough that he had a hard time getting in and out of the car she said and would not get in the car with her he even though that she wanted to bring him into the emergency department earlier. Since the hospital admission patient does not recognize me this morning as he did yesterday. Patient is confused. Patient has obvious tremor. Do not see the initial a FX of the left facial weakness that I saw yesterday. Do not appreciate any further right-sided arm weakness as well. Laboratory testing in the emergency department was unrevealing and CT scan of his head showed no acute findings. Patient states he has a little bit hungry this morning. He has no subjective complaints of pain such as headache dizziness chest pain shortness of breath having no difficulty with urination. No bowel movement yet Discharge Providers Provider Date of admission: 09/30/19 01:37 Discharge Date: 10/01/19 Primary care physician: Addi Burgos MD Consults: 09/30/19 01:45 Consult to Speech Therapy Evaluate & Treat Comment: JAYLEN Physician Instructions: Evaluate and treat 09/30/19 01:46 Consult to Physical Therapy Evaluate & Treat Comment: TIA Physician Instructions: Evaluate and Treat 09/30/19 12:37 Consult to Occupational Therapy Evaluate & Treat Comment: Physician Instructions: Evaluate and treat Discharge provider: Addi Burgos MD Summary Hospital Course Discharge Diagnosis: Transient ischemic event Parkinson's disease 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 Patient lives at home with his . Please see inpatient history of present illness for complete details. Patient was seen and evaluated in the emergency department and then admitted to the hospital for further evaluation. Patient was placed on telemetry monitoring and had no significant cardiac arrhythmias other than his chronic atrial fibrillation. Patient had a follow-up MRIs am which was limited due to motion artifact due to his Parkinson's disease but did not see any acute cerebrovascular ischemia. Patient during the hospital stay was confused and disoriented. Which is his normal baseline. During his hospital stay he had physical therapy evaluation. Discharge plan will be to be discharged home with his who is already working on assisted living places for him. He will go home with home health and home physical therapy and occupational therapy. He will continue his current medications. Exam Vital Signs (past 8 hours): - 10/01/19 03:01 Temperature 97.2 F L Pulse Rate 72 Respiratory Rate 18 Blood Pressure 143/92 H Pulse Oximetry 97 Oxygen Delivery Method Room Air Oxygen Flow Rate 0 Objective Labs Result Diagrams: 10/01/19 06:00 10/01/19 06:00 Labs: Laboratory Results - last 24 hr 09/30/19 09/30/19 10/01/19 11:15 19:50 06:00 WBC 8.3 RBC 4.89 Hgb 15.0 Hct 45.5 MCV 93.0 MCH 30.6 MCHC 32.9 RDW 16.2 H Plt Count 165 Neut % (Auto) 63.2 Lymph % (Auto) 24.1 L [place] % (Auto) 10.0 Eos % (Auto) 2.3 Baso % (Auto) 0.4 Neut # (Auto) 5200 Lymph # (Auto) 2000 [place] # (Auto) 800 Eos # (Auto) 200 Baso # (Auto) 0 PT INR Sodium Potassium Chloride Carbon Dioxide BUN Creatinine Estimated GFR BUN/Creatinine Ratio Glucose Calcium Troponin I 0.015 0.015 10/01/19 10/01/19 06:00 06:00 WBC RBC Hgb Hct MCV MCH MCHC RDW Plt Count Neut % (Auto) Lymph % (Auto) [place] % (Auto) Eos % (Auto) Baso % (Auto) Neut # (Auto) Lymph # (Auto) [place] # (Auto) Eos # (Auto) Baso # (Auto) PT 22.9 H INR 2.0 H Sodium 140 Potassium 4.7 Chloride 105 Carbon Dioxide 32 BUN 19 Creatinine 0.80 Estimated GFR > 60.0 BUN/Creatinine Ratio 23.8 H Glucose 105 Calcium 9.4 Troponin I Discharge Plan Discharge Plan Discharge Problem: Transient cerebral ischemia Patient Disposition: Home Discharge comment: Patient will need home health home physical therapy and occupational therapy Discharge orders & Medications Prescriptions: Continued Nuplazid 34 mg capsule 34 mg PO DAILY RF: 0 rivastigmine 13.3 mg/24 hour patch 24 hour 13.3 mg transdermal DAILY RF: 0 carbidopa-levodopa 25-100 mg tablet 2 tab PO TID RF: 0 Centrum Silver Men 300-600-300 mcg tablet 1 tab PO DAILY RF: 0 warfarin [Coumadin] 5 mg tablet 5 mg PO SEE INSTRUCTIONS Qty: 180 RF: 3 omega-3 fatty acids [Fish Oil Concentrate] 1,000 mg Capsule 1,200 mg PO DAILY Qty: 0 RF: 0 memantine [Namenda] 10 MG tablet 10 mg PO BID Qty: 0 RF: 0 tamsulosin 0.4 mg capsule See Rx Instructions .ROUTE .COMPLEX Qty: 90 RF: 3 finasteride 5 mg tablet 5 mg PO DAILY Qty: 90 RF: 3 Follow up/Referrals: Addi Burgos MD [Primary Care Provider] - Visit Report/Discharge Packet Visit Report Forms: Patient Portal/API, Stroke Signs & Symptoms Discharge Data Primary Care Provider: Addi Burgos Attending Provider: Addi Burgos Admit Date/Time: 09/30/19 01:37 Quality VTE Deep Vein Thrombosis/Pulmonary Embolism Present on Admission: Yes
[2019-10-01 08:10] VITALS: BP 162/99; PULSE 64; RESP 18; TEMP 37.1; O2SAT 96
[2019-10-01] MEDS: CARBIDOPA-LEVODOPA 25/100 TABLET 2 EACH PO ×2 (08:32→14:40)
[2019-10-01] MEDS: PIMAVANSERIN 34 MG 34 EACH PO (08:32)
[2019-10-01 08:33] VITALS: BP 162/99; PULSE 63
[2019-10-01] MEDS: lisinopriL 10 MG TABLET PO (08:33)
[2019-10-01] MEDS: TAMSULOSIN 0.4 MG CAPSULE PO (08:33)
[2019-10-01] MEDS: MEMANTINE HCL 5 MG TABLET 10 MG PO (08:33)
[2019-10-01] MEDS: FINASTERIDE 5 MG TABLET PO (08:33)
--- NOTE | 2019-10-01 09:36 | PC.NURSE ---
Patient was calm and cooperative this morning. Patient is AxO to self and date. Dr. Burgos did rounds this morning and Patient will be discharged today with home health.
--- NOTE | 2019-10-01 11:37 | CM.DPC ---
DCP: continued: case received and have worked on this d/c plan through the morning. Dr. Lopez order for home with PT/OT was noted. Prior plan for an admission to [facility] was noted. Had lenghty conversation with pt's Tess, by phone re her understanding of the plan. She admitted to some confusion after her conversation with Dr. Burgos early this morning. All is now clarified as a continuation of the plan for an admission to [facility]. Tess and deonna stephens are currently at [facility] finalizing paperwork for the admission. Olamide/[facility] confirms the room is ready. director of family service center Ashwini will be here soon to assess pt but expects to be able to accept pt today. Dr. Burgos has been updated re the d/c dispo, very much agrees this is in pt's best interest and says he will amend the d/c summary and orders to reflect the dc dispo change. In the meantime, a VVO is obtained for DC to [facility] with in-house therapy prn. Pt will be picked up at 1500, either w/c van or w/c push by [facility] staff.
[2019-10-01 12:03] VITALS: BP 126/69; PULSE 79; RESP 16; TEMP 37.1; O2SAT 96
--- NOTE | 2019-10-01 13:01 | ST.IPIE ---
Visit Care Team Role Provider Type Nicholas Rojas MD Emergency Provider Physician Referring Provider Specialty: Emergency Medicine Address: [address] [place] [address], [id number] Email: [email or web address] Addi Burgos MD Attending Provider Physician Primary Care Provider Specialty: Family Practice Address: [address] [place] [address], [address] Email: [email or web address] Deondre Lopez MD Admit Provider Physician Other Providers Specialty: Family Practice Address: [address] [place] [address], [address] Email: [email or web address] Past Medical History (Last Reviewed 09/30/19 @ 07:45 by Addi Burgos MD) Acne (Chronic Medical) Arthritis (Acute Medical) Asthma (Chronic Medical ~1999) Atrial fibrillation (Chronic Medical) Chicken pox (Resolved Medical ~1947) Chronic back pain (Chronic Medical ~1979) Dementia (Acute Medical) Lewy Body Depression (Chronic Medical ~2011) Easy bruisability (Acute Medical) Enlarged prostate (Acute Medical) Former smoker (Acute Social Hx) Quit 1976 Hearing loss (Chronic Medical) Hypertension (Chronic Medical) Measles (Resolved Medical) Mumps (Resolved Medical ~1950) Osteoarthritis (Chronic Medical) Peptic ulcer disease (Chronic Medical ~1969) Pulmonary embolism (Chronic Medical ~2009) Recurrent sinusitis (Chronic Medical) Seasonal allergies (Chronic Medical ~1941) Shoulder pain (Chronic Medical ~2013) Skin cancer (Chronic Medical ~1979) Skin lesions (Acute Medical) Bilateral upper extremities Sleep apnea (Chronic Medical ~1959) ST IP Initial Evaluation Report SAFETY AND SECURITY MANAGER Clinical Swallow Evaluation Start: 10/01/19 12:41 Freq: Status: Active Protocol: Document 10/01/19 12:41 MG (Rec: 10/01/19 13:01 MG [id number]) Clinical Swallow Evaluation Session Time Visit Start Time 12:20 Visit Stop Time 12:40 Total Visit Minutes 20 Visit Information Visit Number 2 Setting Assessment Location Acute Care Visit Type Note Type Initial Evaluation Patient Information Identification Type Name,ID Card History 79-year-old male with Parkinson's disease with Parkinson's dementia lives at home with his . His says over the last the 2 days he has had a couple of episodes 1 2 days ago where he became confused disoriented a little bit combative. She said he had a difficult time with some of his speech and moving his right hand. She has that got a little bit better and then today when they were at [employer] patient had a similar episode of confusion and combativeness. She then was concerned that maybe 1 of his pupils was a different size she thought maybe there was some difficulty with moving some of his face. She became concerned. I happened to be in the neighborhood who walking by the house and she came out and grab me. On evaluation the patient on my arrival he was disoriented. He had a little bit garbled speech but that was probably due to his Parkinson's. Appreciated maybe some subjective weakness to the left side of his face and some gentle weakness to his right arm. The time after discussing with his EMS was called and they responded to the patient. Patient was confused enough that he had a hard time getting in and out of the car she said and would not get in the car with her he even though that she wanted to bring him into the emergency department earlier. Subjective Observations Pt was seen sitting upright in bed eating lunch. Pt was agreeable to SAFETY AND SECURITY MANAGER entering the room. As evaluation proceeded, pt became unwilling to participate and had a difficult time following directions. Tremor noted in right hand. Pt was shown pictures of familiar household items and could name 0/5. Pt was not oriented to where he was and what year it was. Evaluation Liquids Trialed Thin Solids Trialed Dysphagia Advanced,Mechanical Soft,Regular Administration Type Controlled Cup Sip,Straw,Self- Feeding,Dependent Feeding Oral Impairment WFL Oral Strategies Upright at 90 degrees, Alternate Liquids/Solids, Dementia Strategies Oral Phase Comments Formal OME could not be completed as pt could not follow directions. From informal observations, pt appeared to masticate solid food at an appropriate length of time. No oral residue was noted. No anterior oral spillage noted. Pharyngeal Impairment Mildly Impaired Pharyngeal Strategies Sitting Upright (90 deg), Double Swallow,Small Bites and Sips Pharyngeal Phase Comments Pt could not follow directions , therefore laryngeal palpation could not done. Gruff noted noted upon entry of the room. Pt could not recall if this is baseline for him. Upon throat clear, voice became stronger. Upon all trials of thin liquids and solids noted, no overt s/sx of aspiration occurred. Pt appeared to tolerate softer foods (e.g., soup with cooked vegetables) more than regular textured foods (e.g., bread crust). Pt could not follow strategies. Pt was noted to involuntary double swallow x3 , which would present a clear voice after second swallow. Pt took small bites/sips as well independently. Findings Dysphagia Type Pharyngeal dysphagia Rehabilitation Potential Fair Impressions Upon all trials of thin liquids and solids noted, no overt s/sx of aspiration occurred. However, given pt's diagnoses, it is likely that the swallowing mechanism will diminish. Of note; a gruff voice may indicate pharyngeal residue post swallow is occurring. Therefore, it is recommended that the SAFETY AND SECURITY MANAGER at the care facility follow up with the pt if swallowing problems should arise and diet needs to be modified. Diet Recommendations Liquids Order Thin Diet Order Mechanical Soft Medication Recommendations As Tolerated Aspiration Precautions Recommended Precautions Upright at 90 Degrees, Alternate Liquids/Solids,Small Bites/Sips Treatment Plan Placement Recommendations after [facility] Facility Discharge Appropriate for Therapy Yes Therapy Recommendations Pt is discharging today. SAFETY AND SECURITY MANAGER at care facility should follow up with pt upon admittance to further assess diet recommendations and develop least restrictive diet for pt. Dysphagia Goals Pt will tolerate least restrictive diet and and show no s/sx of overt aspiration.
--- NOTE | 2019-10-01 13:23 | PC.NURSE ---
Addendum entered by Leela Bruce R.N. 10/01/19 15:21: [facility] arrived. Pt trans to w/c by JOE Dennis and this RN. IV and tele removed. D/C packet reviewed with and Tess. Meds returned from pharmacy given to Tess. Pt left in stable condition with all personal belongings. Original Note: Assumed care of 1130. Pt sleeping in bed during bedside hand-off. Discharged planned for 1500 to memory care facility. NEWS ASSISTANT in for assessment; Recommends soft mechanical diet with thin liquids and f/up with NEWS ASSISTANT at facility. See eval documentation for details. Pt calm and cooperative with care. Bed alarm on. Repositions independently.
--- NOTE | 2019-10-01 14:13 | OT.IP.TRT ---
Occupational Therapy Treatment Note M2 OT-IP Current Condition Start: 09/30/19 18:17 Freq: Status: Active Protocol: Document 09/30/19 18:18 CCC (Rec: 09/30/19 19:00 CCC [id number]) Occupational Therapy Current Condition Current Condition Evaluation Date 09/30/19 Treatment Diagnosis TIA, dementia Parkinson's Diagnosis Onset Date 09/30/19 M3 OT- IP Subjective and Pain Start: 09/30/19 18:17 Freq: Status: Active Protocol: Document 10/01/19 14:11 CGR (Rec: 10/01/19 14:13 CGR [id number]) OT- Subjective Occupational Therapy Visit Type Type Administrative Note Notes Pt is planned for d/c today at 3pm. Case management requesting to hold therapy at this time for discharge. No OT services rendered.
--- NOTE | 2019-10-01 15:09 | PT.IPTN ---
Physical Therapy Treatment Note M2 PT-IP Current Condition Start: 09/30/19 13:33 Freq: NEEDED Status: Active Protocol: Document 09/30/19 12:30 AB (Rec: 09/30/19 13:59 AB [id number]) Physical Therapy Current Condition Current Condition Evaluation Date 09/30/19 Treatment Diagnosis TIA; PD; dementia; difficulty in walking Onset Date 09/30/19 Precautions Other Precautions falls M3 PT-IP Subjective Start: 09/30/19 13:33 Freq: NEEDED Status: Active Protocol: Document 10/01/19 15:00 KS (Rec: 10/01/19 15:18 KS [id number]) Subjective Physical Therapy Visit Type Type Treatment Note Visit Start Time 15:00 Visit Stop Time 15:09 Total Visit Minutes 9 Number of MAXILLOFACIAL PROSTHETICS DENTIST Visits 1 Physical Therapy Visit Comments Patient Comments spouse in room with pt, Nurse and BENCH MOLDER present for transfer. M4 PT-IP Mobility and Gait Start: 09/30/19 13:33 Freq: NEEDED Status: Active Protocol: Document 10/01/19 15:00 KS (Rec: 10/01/19 15:18 KS [id number]) PT-Bed Mobility Assessment Supine to Sit Supine to Sit Maximum Assistance,1 Person Assistance,2 Person Assistance Scooting Scooting to Edge of Bed Maximum Assistance PT-Transfer Assessment Sit to and From Stand Sit to and from Stand Maximum Assistance,2 Person Assistance,Use of Upper Extremities Equipment Transfer Assistive Device None,Gait Belt Orthotic/Prosthetic Devices or Brace: No Transfers Transfer Destination Wheelchair Transfer Technique Stand step pivot transfer Transfer Ability Level of Assist Maximum Assistance,2 Person Assistance,Use of Upper Extremities Comments Mobility Comments Pt in bed upon arrival from therapy and nursing staff. Pt Max A for sup<>sit and scooting EOB. Pt able to maintain seated balance EOB for 1 min. Pt then sit<>stand Max A x2 and cues for upright posture. Pt then completed stand step pivot transfer Max x2 w/ cues for sequencing. Pt able to take 2 small steps laterally to complete transfer . Pt had freezing episode when stand<>sit in w/c and required verbal and tactile cues for hand placement. Max A x1 for stand<>sit in wheelchair. Pt left in w/c w/ nursing staff present in preparation to d/c to [facility]. Gait Assessment Gait Gait Assistance Required: Maximum Assistance,2 Person Assist Distance (Feet) 2 Able to Maintain Weight Bearing Status Yes During Gait Assistive Devices Assistive Device Gait Belt Orthotic/Prosthetic Devices or Brace: No Gait Deviations General Gait Pattern Antalgic,Decreased Stride Length,Decreased Feet Clearance,Step-to Gait Factors Limiting Gait Function Factors Limiting Gait Function Decreased Activity Tolerance, Decreased Strength,Difficulty Following Directions,Poor Balance,Poor Safety Awareness Comments Gait Comments See mobility. Stand step pivot only. PT-Balance Assessment Sitting Balance and Reactions Static Sitting Balance Ability Fair Dynamic Sitting Balance Ability Fair Standing Balance and Reactions Static Standing Balance Ability Poor Dynamic Standing Balance Ability Poor Device Used without AD M5 PT-IP Objective Assessments Start: 09/30/19 13:33 Freq: NEEDED Status: Active Protocol: Document 09/30/19 12:30 AB (Rec: 09/30/19 13:59 AB [id number]) Gross Range of Motion Lower Extremity ROM Assessment Within Functional Limits Strength Lower Extremity Strength Assessment Right Impaired Hip 3+/5 Knee 3+/5 M6 PT-IP Treatment Start: 09/30/19 13:33 Freq: NEEDED Status: Active Protocol: Document 09/30/19 12:30 AB (Rec: 09/30/19 13:59 AB [id number]) Physical Therapy Treatment Education Education Provided Safety M7 PT-IP Assessment and Plan Start: 09/30/19 13:33 Freq: NEEDED Status: Active Protocol: Document 10/01/19 15:00 KS (Rec: 10/01/19 15:18 KS [id number]) PT Summary Assessment and Plan Potential Rehabilitation Potential Fair Status of Condition at Evaluation Evolving Summary Impairments Pain,ROM,Strength,Balance, Coordination,Sensation,Tone, Cognition,Bed Mobility, Transfers,Gait,Activity Tolerance Assessment Summary Pt Max A for sup<>sit and scooting EOB. Able to maintain seated balance on EOB 1 min prior to transfer. Pt Max X2 for stand step pivot transfer into w/c. Pt able to take 2 small steps laterally towards chair and was able to stand up straight when cued. Pt unable to bend knees when cued to sit d/t freezing episode, but was able to place arms onto arm rests of w/c with tactile cues when sitting. Pt in w/c w / nursing staff preparing to d /c to [facility]. Goals Bed Mobility Goal Contact Guard Assistance Transfer Goal Contact Guard Assistance Gait Goal Contact Guard Assistance Gait Distance 50 Days to Meet Goals 10 Frequency of Treatment Frequency Of Treatment Once a Day Treatment Plan Physical Therapy Treatment Plan Bed Mobility Training,Transfer Training,Gait Training, Therapeutic Exercise,Balance Retraining,Discharge Planning, Neuromuscular Re-ed Recommendations To Nursing Amount of Assist Needed 2 Person Assist Discharge Recommendations PT Discharge Recommendations SNF Rehab Transportation Needs at Discharge Wheelchair/Cabulance
== END 2019-10-01 15:10 | disposition home or self-care (01) ==
LOC: ED 09-30 01:04 → AC 09-30 06:53
PROVIDERS: Admitting Provider Family Medicine; Emergency Provider Emergency Medicine; PCP Family Medicine; Referring Provider Emergency Medicine; Visit Provider Family Medicine
DX: G45.9 Transient cerebral ischemic attack, unspecified (principal); R29.818 Other symptoms and signs involving the nervous system; Z11.59 Encounter for screening for other viral diseases; G20 Parkinson's disease; Z79.01 Long term (current) use of anticoagulants; Z86.711 Personal history of pulmonary embolism; F02.80 Dementia in other diseases classified elsewhere, unspecified severity, without behavioral disturbance, psychotic disturbance, mood disturbance, and anxiety; I48.20 Chronic atrial fibrillation, unspecified; I10 Essential (primary) hypertension; N40.0 Benign prostatic hyperplasia without lower urinary tract symptoms
CPT/HCPCS: 36415; 70450; 70551; 80048; 80053; 81001; 82550; 82553; 84484; 85025; 85610; 85730; 87635; 92610; 93005; 93010; 93306; 96374; 97162; 97165; 97530; 99217; 99219; 99284; G0378; J2060

== ENCOUNTER 2019-10-06 05:36 | Inpatient (IN) | payer MEDICARE, OTHER, SELFPAY ==
[2019-09-30 02:07] VITALS: BMI 26.9
[2019-10-06] VITALS (13 sets, daily range): BP systolic 120–164; BP diastolic 63–102; PULSE 76–113; RESP 14–20; TEMP 36.7–37.3; O2SAT 90–95; BMI 25.1
--- NOTE | 2019-10-06 05:40 | ED_ITS ---
HPI - GI Bleed General Chief complaint: GI Bleed Stated complaint: GI BLEED Time Seen by Provider: 10/06/19 05:38 Source: EMS Mode of arrival: EMS Limitations: altered mental status History of Present Illness HPI Narrative: 79M former smoker with a recent TIA and a warfarin induced coagulopathy presents by EMS for evaluation of multiple bright red bowel movements this morning. The patient was recently admitted for TIA was discharged to a alf facility. There is no mention in the chart of a recent medication change. Vitals on scene were stable. Patient has no complaint of pain. MD complaint: blood streaked stool Onset (ago): hour(s) Severity: moderate Relieving factors: none Exacerbating factors: none Associated symptoms: easy bruising Treatments Prior to Arrival: none Related Data Home Medications Medication Instructions Recorded Confirmed omega-3 fatty acids [Fish Oil 1,200 mg PO DAILY #0 05/14/11 10/06/19 Concentrate] memantine [Namenda] 10 mg PO BID #0 05/15/17 10/06/19 carbidopa 25 mg-levodopa 100 mg 2 tab PO TID 09/23/18 10/06/19 tablet rivastigmine 13.3 mg/24 hour 13.3 mg TRANSDERMAL DAILY 09/23/18 10/06/19 transdermal patch pimavanserin 34 mg capsule 34 mg PO DAILY 07/08/19 10/06/19 jaupakby-wlm-WV-lycopen-lutein 1 tab PO DAILY 10/06/19 10/06/19 [Centrum Silver] tamsulosin 0.4 mg PO DAILY 10/06/19 10/06/19 warfarin 7.5 mg PO QMWFSA 10/06/19 10/06/19 warfarin 10 mg PO QTUTH 10/06/19 10/06/19 Previous Rx's Medication Instructions Recorded finasteride 5 mg tablet 5 mg PO DAILY #90 tab 04/20/19 Allergies Allergy/AdvReac Type Severity Reaction Status Date / Time oxycodone [OXYCODONE] Allergy Mild HIVES Verified 09/07/19 13:57 acetaminophen [From PERCOCET] Allergy Unknown Verified 09/07/19 13:57 adhesive [ADHESIVE] Allergy Unknown Verified 09/07/19 13:57 Review of Systems Review of Systems ROS Unobtainable: Unobtainable due to mental status/LOC Patient History Medical History (Updated 10/06/19 @ 09:05 by Fabiola Pang RN) Acne (Chronic) Arthritis (Acute) Asthma (Chronic ~1999) Atrial fibrillation (Chronic) Chicken pox (Resolved ~1947) Chronic back pain (Chronic ~1979) Dementia (Acute) Depression (Chronic ~2011) Easy bruisability (Acute) Enlarged prostate (Acute) Former smoker (Acute) Hearing loss (Chronic) Hypertension (Chronic) Measles (Resolved) Mumps (Resolved ~1950) Osteoarthritis (Chronic) Parkinson disease (Acute) Peptic ulcer disease (Chronic ~1969) Pulmonary embolism (Chronic ~2009) Recurrent sinusitis (Chronic) Seasonal allergies (Chronic ~1941) Shoulder pain (Chronic ~2013) Skin cancer (Chronic ~1979) Skin lesions (Acute) Sleep apnea (Chronic ~1959) TIA (transient ischemic attack) (Acute) Surgical History History of arthroscopic knee surgery (Resolved) History of arthroscopic surgery of shoulder (Resolved) History of knee replacement Status post laparoscopic cholecystectomy Family History Father Heart disease Mother Alcohol abuse Social History marital status: household members: spouse Smoking Status: Former smoker alcohol intake: never substance use type: does not use Smoking Status: Former smoker Substance Use Type: does not use Exam Narrative Exam Narrative: GENERAL: [79] year old frail patient appears stated age. Non verbal, but in no obvious pain. HEAD: Atraumatic. Normocephalic. EYES: Pupils equal round and reactive. Extraocular motions intact. No scleral icterus. No injection or drainage. ENT: Nose without bleeding, purulent drainage. Throat without erythema, tonsill ar hypertrophy or exudate. Airway patent. NECK: Trachea midline. Non tender CARDIOVASCULAR: Regular rate and rhythm without murmurs, gallops, or rubs. RESPIRATORY: Clear to auscultation. Breath sounds equal bilaterally. No wheezes, rales, or rhonchi. GASTROINTESTINAL: Abdomen soft, non-tender, nondistended. RECTAL: bright red blood at rectum. No hemorrhoid or fissure noted EXTREMITIES: No edema or joint tenderness. BACK: Nontender without deformity or crepitance. No flank tenderness. NEURO: Awake, responsive, seems confused, non verbal. Resting tremor. SKIN: No rash or erythema of visible areas Initial Vital Signs Initial Vital Signs: Vital Signs Temperature 98.8 F 10/06/19 05:41 Pulse Rate 78 10/06/19 05:41 Respiratory Rate 16 10/06/19 05:41 Blood Pressure 139/76 10/06/19 05:41 Pulse Oximetry 91 10/06/19 05:41 Course Orders Ordered: ED Orders 10/07/19 05:00 Basic Metabolic Panel Routine Complete Blood Count AUTO DIFF Routine Acetaminophen (Tylenol) 650 mg PO Q6HR PRN PRN Reason: Fever/Mild Pain (1-3) Carbidopa/Levodopa (Sinemet 25-100 Tab) 2 each PO TID [facility] Last Admin: 10/06/19 18:02 Dose: 2 each Documented by: Admin: 10/06/19 14:45 Dose: Not Given Documented by: VONDA Finasteride (Proscar) 5 mg PO DAILY [facility] Sodium Chloride (Normal Saline 0.9%) 1,000 mls @ 125 mls/hr IV CONT [facility] Last Admin: 10/06/19 17:30 Dose: 125 mls/hr Documented by: Infusion: 10/06/19 17:30 Dose: 125 mls/hr Documented by: Admin: 10/06/19 10:46 Dose: 125 mls/hr Documented by: VONDA Memantine (Namenda) 10 mg PO BID [facility] Naloxone HCl (Narcan) 0.2 mg IV Q2MIN PRN PRN Reason: Opiate Reversal Pimavanserin [ (Nuplazid] 34 Mg) 34 mg PO DAILY [facility] Rivastigmine 13.3 Mg 13.3 mg TOP DAILY [facility] Ondansetron HCl (Zofran) 4 mg IV Q4HR PRN PRN Reason: Nausea And Vomiting Pantoprazole Sodium (Protonix) 40 mg IV BID [facility] Last Admin: 10/06/19 10:46 Dose: 40 mg Documented by: VONDA Tamsulosin HCl (Flomax) 0.4 mg PO DAILY [facility] Discontinued Medications Pantoprazole Sodium (Protonix) 40 mg IV NOW ONE Stop: 10/06/19 05:42 Last Admin: 10/06/19 06:47 Dose: 40 mg Documented by: KEVIN Phytonadione (Mephyton) 5 mg PO NOW ONE Stop: 10/06/19 06:30 Last Admin: 10/06/19 06:55 Dose: Not Given Documented by: KEVIN Phytonadione (Vitamin K1) 5 mg SUBCUT NOW ONE Stop: 10/06/19 06:32 Last Admin: 10/06/19 06:40 Dose: 5 mg Documented by: KEVIN Consultations Consultation #1: Dr. Lopez accepts on behalf of Dr. Burgos. Also, in contact with Dr. Burgos who will see patient this morning Consultation #2: Dr. Handley to see patient in the ED MDM - GI Bleed Lab Data Result diagrams: 10/06/19 15:25 10/06/19 05:53 Labs: Lab Results 10/06/19 10/06/19 10/06/19 Range/Units 05:53 05:53 05:53 WBC 16.1 H (4.5-11.0) X10^3/uL RBC 5.32 (4.5-5.9) X10^6/uL Hgb 16.3 (13.5-17.5) g/dL Hct 49.2 (41-53) % MCV 92.5 (80-100) fL MCH 30.6 (26-34) PG MCHC 33.1 (30-36) % RDW 16.0 H (11.6-14.8) % Plt Count 247 (150-400) X10^3/uL Neut % (Auto) 78.7 H (50-75) % Lymph % (Auto) 9.6 L (25-40) % [place] % (Auto) 9.7 (3-14) % Eos % (Auto) 1.7 L (2-4) % Baso % (Auto) 0.3 (0-2) % Neut # (Auto) 26886 H (2493-6893) /uL Lymph # (Auto) 1600 (8466-5202) /uL [place] # (Auto) 1600 H (0-900) /uL Eos # (Auto) 300 (0-450) /uL Baso # (Auto) 100 (0-100) /uL PT 39.5 H D (10.1-12.7) SECONDS INR 3.5 H (0.9-1.3) APTT 35 D (26.4-36.2) SECONDS Sodium 144 (137-145) mmol/L Potassium 4.5 (3.4-5.1) mmol/L Chloride 109 H (98-107) mmol/L Carbon Dioxide 27 (22-32) mmol/L BUN 55 H (9-20) mg/dL Creatinine 1.26 H (0.66-1.25) mg/dL Estimated GFR 55.4 L (>60) mL/min BUN/Creatinine Ratio 43.7 H (6-22) Glucose 158 H (80-110) mg/dL Calcium 9.5 (8.4-10.2) mg/dL Total Bilirubin 0.9 (0.2-1.3) mg/dL AST 41 (17-59) IU/L ALT 32 (<50) IU/L Alkaline Phosphatase 83 (38-126) U/L Total Protein 7.4 (6.3-8.2) g/dL Albumin 3.9 (3.5-5.0) g/dL Globulin 3.5 (1.7-4.1) g/dL Albumin/Globulin Ratio 1.1 (1.0-2.8) Urine Color Urine Appearance Urine pH (4.5-8.0) Ur Specific [place] (1.000-1.035) Urine Protein (Negative) Urine Glucose (UA) (Negative) g/dL Urine Ketones (NEGATIVE) Urine Occult Blood (Negative) Urine Nitrate (Negative) Urine Bilirubin (NEGATIVE) Urine Urobilinogen (0.2) E.U./dL Ur Leukocyte Esterase (NEGATIVE) Urine RBC (0-5/HPF) Urine WBC (0-5/HPF) Urine Bacteria (None) Ur Culture Indicated? COVID-19 PCR (Negative) Blood Type Antibody Screen 10/06/19 10/06/19 10/06/19 Range/Units 05:53 06:20 07:23 WBC (4.5-11.0) X10^3/uL RBC (4.5-5.9) X10^6/uL Hgb (13.5-17.5) g/dL Hct (41-53) % MCV (80-100) fL MCH (26-34) PG MCHC (30-36) % RDW (11.6-14.8) % Plt Count (150-400) X10^3/uL Neut % (Auto) (50-75) % Lymph % (Auto) (25-40) % [place] % (Auto) (3-14) % Eos % (Auto) (2-4) % Baso % (Auto) (0-2) % Neut # (Auto) (7753-0715) /uL Lymph # (Auto) (3024-6679) /uL [place] # (Auto) (0-900) /uL Eos # (Auto) (0-450) /uL Baso # (Auto) (0-100) /uL PT (10.1-12.7) SECONDS INR (0.9-1.3) APTT (26.4-36.2) SECONDS Sodium (137-145) mmol/L Potassium (3.4-5.1) mmol/L Chloride (98-107) mmol/L Carbon Dioxide (22-32) mmol/L BUN (9-20) mg/dL Creatinine (0.66-1.25) mg/dL Estimated GFR (>60) mL/min BUN/Creatinine Ratio (6-22) Glucose (80-110) mg/dL Calcium (8.4-10.2) mg/dL Total Bilirubin (0.2-1.3) mg/dL AST (17-59) IU/L ALT (<50) IU/L Alkaline Phosphatase (38-126) U/L Total Protein (6.3-8.2) g/dL Albumin (3.5-5.0) g/dL Globulin (1.7-4.1) g/dL Albumin/Globulin Ratio (1.0-2.8) Urine Color Yellow Urine Appearance Clear Urine pH 5.0 (4.5-8.0) Ur Specific [place] 1.020 (1.000-1.035) Urine Protein Negative (Negative) Urine Glucose (UA) Negative (Negative) g/dL Urine Ketones Negative (NEGATIVE) Urine Occult Blood 1+ H (Negative) Urine Nitrate Negative (Negative) Urine Bilirubin Negative (NEGATIVE) Urine Urobilinogen Normal (0.2) E.U./dL Ur Leukocyte Esterase Negative (NEGATIVE) Urine RBC 0-1/hpf (0-5/HPF) Urine WBC None seen (0-5/HPF) Urine Bacteria None seen (None) Ur Culture Indicated? Cult not indicated COVID-19 PCR Negative (Negative) Blood Type A Positive Antibody Screen Negative Discharge Plan Departure Patient Disposition: Admitted As Inpatient Clinical Impression: Gastrointestinal hemorrhage Discharge Date/Time: 10/06/19 08:35 Admit Date/Time: 10/06/19 07:53 Admit Provider: Addi Burgos
[2019-10-06 06:11] LABS: Add Manual Diff / Slide Review NO; Basophils Absolute Auto 100 /uL (0-100); Basophils Percent Auto 0.3 % (0-2); Eosinophils Absolute Auto 300 /uL (0-450); Eosinophils Percent Auto 1.7 % (2-4); Hematocrit 49.2 % (41-53); Hemoglobin 16.3 g/dL (13.5-17.5); Lymphocytes Absolute Auto 1600 /uL (1100-4500); Lymphocytes Percent Auto 9.6 % (25-40); Mean Corpuscular HGB Conc 33.1 % (30-36); Mean Corpuscular Hemoglobin 30.6 PG (26-34); Mean Corpuscular Volume 92.5 fL (80-100); Monocytes Absolute Auto 1600 /uL (0-900); Monocytes Percent Auto 9.7 % (3-14); Neutrophils Absolute Auto 12700 /uL (1500-7000); Neutrophils Percent Auto 78.7 % (50-75); Platelet Count 247 X10^3/uL (150-400); Red Blood Cell Count 5.32 X10^6/uL (4.5-5.9); White Blood Cell Count 16.1 X10^3/uL (4.5-11.0)
[2019-10-06 06:18] LABS: INR 3.5 (0.9-1.3); Prothrombin Time 39.5 SECONDS (10.1-12.7)
[2019-10-06 06:21] LABS: PTT Partial Thromboplastin Tim 35 SECONDS (26.4-36.2)
[2019-10-06 06:24] LABS: Albumin 3.9 g/dL (3.5-5.0); Albumin Globulin Ratio 1.1 (1.0-2.8); Alkaline Phosphatase 83 U/L (38-126); Aspartate Aminotransferase 41 IU/L (17-59); BUN Creatinine Ratio 43.7 (6-22); Bilirubin Total 0.9 mg/dL (0.2-1.3); Blood Urea Nitrogen 55 mg/dL (9-20); Calcium 9.5 mg/dL (8.4-10.2); Carbon Dioxide 27 mmol/L (22-32); Chloride 109 mmol/L (98-107); Estimated Glomerular Filt Rate 55.4 mL/min (>60); Globulin 3.5 g/dL (1.7-4.1); Glucose 158 mg/dL (80-110); HEMOLYSIS < 15 (0-50); Potassium 4.5 mmol/L (3.4-5.1); Sodium 144 mmol/L (137-145); Total Protein 7.4 g/dL (6.3-8.2)
[2019-10-06 06:31] LABS: Bacteria Urine None Seen; WBC Urine None Seen (0-5/HPF)
[2019-10-06] MEDS: PHYTONADIONE (VIT K1) 10 MG/ML AMP 5 MG SUBCUT (06:40)
[2019-10-06 06:46] LABS: Appearance Urine UA Clear; Color Urine UA Yellow; Protein Urine UA Negative (Negative)
[2019-10-06 06:47] LABS: Bilirubin Urine UA Negative (NEGATIVE); Culture Indicated Urine Cult Not Indicated; Glucose Urine UA NEGATIVE (Negative); Ketones Urine UA NEGATIVE (NEGATIVE); Leukocyte Esterase Urine UA NEGATIVE (NEGATIVE); Nitrite Urine UA NEGATIVE (Negative); Occult Blood Urine UA 1+ (Negative); RBC Urine 0-1/HPF (0-5/HPF); Urobilinogen Urine UA Normal E.U./dL (0.2)
[2019-10-06] MEDS: PANTOPRAZOLE 40 MG VIAL IV ×3 (06:47→21:53)
--- NOTE | 2019-10-06 07:04 | P.CONS_ITS ---
History of Present Illness Consult details Date Patient Seen: 10/06/19 Time Patient Seen: 07:04 Chief complaint: GI BLEED Reason for consult: GI bleed Requesting provider: Héctor Fleming Narrative: This is a 79yo man with h/o Parkinson's, Lewy body dementia, HTN, PUD, PE, SIMON, recent TIA, atrial fibrillation, anticoagulated on coumadin, was brought into the ER by ambulance from his SNF for evaluation of multiple bright red bowel movements this morning. The patient was recently admitted for TIA was discharged to a snf facility. There is no accompanying family or acute care assistant to give history. I have reviewed the ER doctor's report which he received from EMS and the patient's medical chart for history. There is no mention in the chart of a recent medication change. The patient has been hemodynamically stable in the ER. Hgb is 16. No ongoing copious bleeding, but blood tinged stool is present in his brief per report. Per chart notes, his last colonoscopy was in 2012 and was normal other than a very tortuous colon. ROS: Unobtainable due to patient's dementia and no family member or acute care assistant present. GENERAL: Elderly, frail man, appears stated age, sleeping comfortably, agitated when awakened. HENT: Normocephalic, atraumatic. Hearing appears to be intact. Oral mucosa is pink and moist. EYES: Conjunctiva pink, sclera white, no periorbital swelling. CARDIOVASCULAR: Regular rate. Irregular rhythm. No pedal edema. RESPIRATORY: Non-tachypneic, breathing comfortably on room air. GASTROINTESTINAL: Abdomen soft; rounded, patient reacts to exam in indicates generalized abdominal tenderness on palpation GENITALURINARY: No flank tenderness. Perianal: Blood-tinged stool present; no external hemorrhoids or prolapsing internal hemorrhoids visible HODAN: Normal tone, slightly blood-tinged stool present in the anal canal MUSCULOSKELETAL: Equal tone and mass bilaterally. SKIN: Warm, dry, soft, appropriate color for ethnicity. No other lesions, rashes, or wounds. NEURO: Alert, some vocalizations, but not able to answer questions appropriately due to dementia; rigidity consistent with Parkinson's PSYCH: Agitated; consistent with baseline dementia Meds Home Medications and Allergies Home Medications Medication Instructions Recorded Confirmed Type omega-3 fatty acids [Fish Oil 1,200 mg PO DAILY #0 05/14/11 09/30/19 History Concentrate] memantine [Namenda] 10 mg PO BID #0 05/15/17 09/30/19 History carbidopa 25 mg-levodopa 100 mg 2 tab PO TID 09/23/18 09/30/19 History tablet cxzxxyyz-flw-njtdh acid 300 1 tab PO DAILY 09/23/18 09/30/19 History mcg-lycopene 600 mcg-lutein 300 mcg tablet rivastigmine 13.3 mg/24 hour 13.3 mg TRANSDERMAL DAILY 09/23/18 09/30/19 History transdermal patch warfarin 5 mg tablet 5 mg PO SEE INSTRUCTIONS #180 tab 02/09/19 09/30/19 Rx tamsulosin 0.4 mg capsule See Rx Instructions .ROUTE 02/23/19 09/30/19 Rx .COMPLEX #90 capsule finasteride 5 mg tablet 5 mg PO DAILY #90 tab 04/20/19 09/30/19 Rx pimavanserin 34 mg capsule 34 mg PO DAILY 07/08/19 09/30/19 History Allergies Allergy/AdvReac Type Severity Reaction Status Date / Time oxycodone [OXYCODONE] Allergy Mild HIVES Verified 09/07/19 13:57 acetaminophen [From PERCOCET] Allergy Unknown Verified 09/07/19 13:57 adhesive [ADHESIVE] Allergy Unknown Verified 09/07/19 13:57 Exam Vital Signs (past 8 hours): - 10/06/19 05:41 10/06/19 05:52 10/06/19 06:00 Temperature 98.8 F Pulse Rate 78 78 76 Respiratory Rate 16 Blood Pressure 139/76 142/87 H Pulse Oximetry 91 92 91 10/06/19 06:30 Temperature Pulse Rate 81 Respiratory Rate Blood Pressure 148/98 H Pulse Oximetry 90 L Oxygen Delivery Method Room Air Objective Labs Result Diagrams: 10/06/19 05:53 10/06/19 05:53 Labs: Laboratory Results - last 24 hr 10/06/19 10/06/19 10/06/19 05:53 05:53 05:53 WBC 16.1 H RBC 5.32 Hgb 16.3 Hct 49.2 MCV 92.5 MCH 30.6 MCHC 33.1 RDW 16.0 H Plt Count 247 Neut % (Auto) 78.7 H Lymph % (Auto) 9.6 L [place] % (Auto) 9.7 Eos % (Auto) 1.7 L Baso % (Auto) 0.3 Neut # (Auto) 85049 H Lymph # (Auto) 1600 [place] # (Auto) 1600 H Eos # (Auto) 300 Baso # (Auto) 100 PT 39.5 H D INR 3.5 H APTT 35 D Sodium 144 Potassium 4.5 Chloride 109 H Carbon Dioxide 27 BUN 55 H Creatinine 1.26 H Estimated GFR 55.4 L BUN/Creatinine Ratio 43.7 H Glucose 158 H Calcium 9.5 Total Bilirubin 0.9 AST 41 Alkaline Phosphatase 83 Total Protein 7.4 Albumin 3.9 Globulin 3.5 Albumin/Globulin Ratio 1.1 Urine Color Urine Appearance Urine pH Ur Specific [place] Urine Protein Urine Glucose (UA) Urine Ketones Urine Occult Blood Urine Nitrate Urine Bilirubin Urine Urobilinogen Ur Leukocyte Esterase Urine RBC Urine WBC Urine Bacteria Ur Culture Indicated? Blood Type Antibody Screen 10/06/19 10/06/19 05:53 06:20 WBC RBC Hgb Hct MCV MCH MCHC RDW Plt Count Neut % (Auto) Lymph % (Auto) [place] % (Auto) Eos % (Auto) Baso % (Auto) Neut # (Auto) Lymph # (Auto) [place] # (Auto) Eos # (Auto) Baso # (Auto) PT INR APTT Sodium Potassium Chloride Carbon Dioxide BUN Creatinine Estimated GFR BUN/Creatinine Ratio Glucose Calcium Total Bilirubin AST Alkaline Phosphatase Total Protein Albumin Globulin Albumin/Globulin Ratio Urine Color Yellow Urine Appearance Clear Urine pH 5.0 Ur Specific [place] 1.020 Urine Protein Negative Urine Glucose (UA) Negative Urine Ketones Negative Urine Occult Blood 1+ H Urine Nitrate Negative Urine Bilirubin Negative Urine Urobilinogen Normal Ur Leukocyte Esterase Negative Urine RBC 0-1/hpf Urine WBC None seen Urine Bacteria None seen Ur Culture Indicated? Cult not indicated Blood Type A Positive Antibody Screen Negative Assessment & Plan Assessment and plan (1) Transient cerebral ischemia: Qualifiers: Transient cerebral ischemia type: unspecified Qualified Code(s): G45.9 - Transient cerebral ischemic attack, unspecified Status: Acute (2) Atrial fibrillation: Status: Chronic (3) Anticoagulated on warfarin: Status: Chronic (4) Parkinson's disease dementia: Qualifiers: Dementia behavioral disturbance: without behavioral disturbance Qualified Code(s): G20 - Parkinson's disease; F02.80 - Dementia in other diseases classified elsewhere without behavioral disturbance Status: Chronic (5) GI bleed: Status: Acute Assessment & Plan narrative: This is a 79-year-old man with what appears to be a slow GI bleed. He has a complex medical history and is high risk for any procedure. To evaluate his GI bleed an upper an lower endoscopy would be appropriate, if not medically contraindicated. Also, it will be appropriate to discuss with the patient and his what they would want done if something were found. If a simple gastritis or bleeding polyp can be diagnosed and treated without further surgical intervention, this may be of help to the patient so that he can go back on his anticoagulation. If an advanced cancer is found, goals of care should be discussed, as he may not be a good candidate for major surgery. 15 minutes were spent face to face with the patient. An additional 35 minutes were spent in chart review in order to obtain medical history information the patient was not able to give. Plan: COVID-19 testing Admit to Medicine If endoscopy is desired, patient will need bowel prep with 4 L of GoLYTELY or until bowels are running clear Would start double-dose PPI, and reverse anticoagulation Recheck hemoglobin later today and transfuse if indicated Please call or page me if questions arise COVID-19 COVID-19 status: Result pending Time Spent With Patient Time with patient: 15-24 minutes
--- NOTE | 2019-10-06 08:08 | P.HP_ITS ---
History of Present Illness History of Present Illness Date Patient Seen: 10/06/19 Time Patient Seen: 08:09 Chief complaint: GI BLEED Narrative: 79-year-old male with advanced Parkinson's disease and Parkinson's disease related dementia recently admitted to the hospital with possible TIA like symptoms and has been at the assisted living now for about a week. Patient has a history of atrial fibrillation pulmonary emboli and is on anticoagulation. Patient has had episodes of bright red rectal bleeding overnight in the assisted living center. He was brought here to the emergency department for further evaluation. Patient is unable to provide much of a history due to his dementia. I reviewed records and did not emergency room physician notes and talked to the staff at the assisted living. I also talked with his who is his primary caregiver but also the person he makes his medical decisions. We are working on getting hospice setup for the patient at home so he could go home with hospice when he finished his short stay in the assisted living facility. I reviewed with her which her wishes for her today and reconfirmed his code status which is DNR. Patient's is hoping that he does not need significant medical interventions like surgeries in an endoscopy is in with her for a pole more conservative management although she is not willing at this point provide just comfort care. On my examination Dustin wakes up. He looks a little bit Nichole. Sh little unshaven and unkept. One on awakening he has a tremor. He answers me he does not recognize me although sometimes he does before this. Says he does not have any problems and he really has a hard time for seeing why he is here. He is not complaining any significant pain that I a.m. aware of when he answers questions about chest pain headache abdominal pain or discomfort. Patient History Medical History Acne (Chronic) Arthritis (Acute) Asthma (Chronic ~1999) Atrial fibrillation (Chronic) Chicken pox (Resolved ~1947) Chronic back pain (Chronic ~1979) Dementia (Acute) Depression (Chronic ~2011) Easy bruisability (Acute) Enlarged prostate (Acute) Former smoker (Acute) Hearing loss (Chronic) Hypertension (Chronic) Measles (Resolved) Mumps (Resolved ~1950) Osteoarthritis (Chronic) Peptic ulcer disease (Chronic ~1969) Pulmonary embolism (Chronic ~2009) Recurrent sinusitis (Chronic) Seasonal allergies (Chronic ~1941) Shoulder pain (Chronic ~2013) Skin cancer (Chronic ~1979) Skin lesions (Acute) Sleep apnea (Chronic ~1959) Surgical History History of arthroscopic knee surgery (Resolved) History of arthroscopic surgery of shoulder (Resolved) History of knee replacement Status post laparoscopic cholecystectomy Family & Social History Family History Father Heart disease Mother Alcohol abuse Social History: household members spouse Safety & Behavioral: Feels Safe in Current Unwilling to Answer Environment Tobacco & Substance use: Smoking Status Former smoker alcohol intake never Substance Use Type does not use Meds Home Medications and Allergies Home Medications Medication Instructions Recorded Confirmed Type omega-3 fatty acids [Fish Oil 1,200 mg PO DAILY #0 05/14/11 09/30/19 History Concentrate] memantine [Namenda] 10 mg PO BID #0 05/15/17 09/30/19 History carbidopa 25 mg-levodopa 100 mg 2 tab PO TID 09/23/18 09/30/19 History tablet imspnskl-zmu-aqqew acid 300 1 tab PO DAILY 09/23/18 09/30/19 History mcg-lycopene 600 mcg-lutein 300 mcg tablet rivastigmine 13.3 mg/24 hour 13.3 mg TRANSDERMAL DAILY 09/23/18 09/30/19 History transdermal patch warfarin 5 mg tablet 5 mg PO SEE INSTRUCTIONS #180 tab 02/09/19 09/30/19 Rx tamsulosin 0.4 mg capsule See Rx Instructions .ROUTE 02/23/19 09/30/19 Rx .COMPLEX #90 capsule finasteride 5 mg tablet 5 mg PO DAILY #90 tab 04/20/19 09/30/19 Rx pimavanserin 34 mg capsule 34 mg PO DAILY 07/08/19 09/30/19 History Allergies Allergy/AdvReac Type Severity Reaction Status Date / Time oxycodone [OXYCODONE] Allergy Mild HIVES Verified 09/07/19 13:57 acetaminophen [From PERCOCET] Allergy Unknown Verified 09/07/19 13:57 adhesive [ADHESIVE] Allergy Unknown Verified 09/07/19 13:57 Exam Vital Signs (past 8 hours): - 10/06/19 05:41 10/06/19 05:52 10/06/19 06:00 Temperature 98.8 F Pulse Rate 78 78 76 Respiratory Rate 16 Blood Pressure 139/76 142/87 H Pulse Oximetry 91 92 91 10/06/19 06:30 10/06/19 07:00 10/06/19 07:30 Temperature Pulse Rate 81 113 H 80 Respiratory Rate 14 18 Blood Pressure 148/98 H 164/87 H Pulse Oximetry 90 L 95 93 10/06/19 07:31 10/06/19 08:00 Temperature Pulse Rate 80 81 Respiratory Rate 20 17 Blood Pressure 130/76 141/75 H Pulse Oximetry 93 94 Oxygen Delivery Method Room Air Narrative Exam Narrative: Gen.: Patient is alert arousable. Has multiple tremors when he wakes. Unable to answer direct questioning very well. HEENT: Pupils equal round and reactive or on mucosa is moist neck is supple Cardio: S1-S2 irregular rate and rhythm Respiratory: [Lungs are clear to auscultation no wheezes or crackles normal respiratory effort.] Abdomen: [Soft nontender no rebound or guarding no liver spleen enlargement no appreciable hernias] Extremities: Patient has some rigidity and tremors. No significant edema Objective Labs Result Diagrams: 10/06/19 05:53 10/06/19 05:53 Labs: Laboratory Results - last 24 hr 10/06/19 10/06/19 10/06/19 05:53 05:53 05:53 WBC 16.1 H RBC 5.32 Hgb 16.3 Hct 49.2 MCV 92.5 MCH 30.6 MCHC 33.1 RDW 16.0 H Plt Count 247 Neut % (Auto) 78.7 H Lymph % (Auto) 9.6 L [place] % (Auto) 9.7 Eos % (Auto) 1.7 L Baso % (Auto) 0.3 Neut # (Auto) 20457 H Lymph # (Auto) 1600 [place] # (Auto) 1600 H Eos # (Auto) 300 Baso # (Auto) 100 PT 39.5 H D INR 3.5 H APTT 35 D Sodium 144 Potassium 4.5 Chloride 109 H Carbon Dioxide 27 BUN 55 H Creatinine 1.26 H Estimated GFR 55.4 L BUN/Creatinine Ratio 43.7 H Glucose 158 H Calcium 9.5 Total Bilirubin 0.9 AST 41 Alkaline Phosphatase 83 Total Protein 7.4 Albumin 3.9 Globulin 3.5 Albumin/Globulin Ratio 1.1 Urine Color Urine Appearance Urine pH Ur Specific Starlight Urine Protein Urine Glucose (UA) Urine Ketones Urine Occult Blood Urine Nitrate Urine Bilirubin Urine Urobilinogen Ur Leukocyte Esterase Urine RBC Urine WBC Urine Bacteria Ur Culture Indicated? Blood Type Antibody Screen 10/06/19 10/06/19 05:53 06:20 WBC RBC Hgb Hct MCV MCH MCHC RDW Plt Count Neut % (Auto) Lymph % (Auto) [place] % (Auto) Eos % (Auto) Baso % (Auto) Neut # (Auto) Lymph # (Auto) [place] # (Auto) Eos # (Auto) Baso # (Auto) PT INR APTT Sodium Potassium Chloride Carbon Dioxide BUN Creatinine Estimated GFR BUN/Creatinine Ratio Glucose Calcium Total Bilirubin AST Alkaline Phosphatase Total Protein Albumin Globulin Albumin/Globulin Ratio Urine Color Yellow Urine Appearance Clear Urine pH 5.0 Ur Specific Starlight 1.020 Urine Protein Negative Urine Glucose (UA) Negative Urine Ketones Negative Urine Occult Blood 1+ H Urine Nitrate Negative Urine Bilirubin Negative Urine Urobilinogen Normal Ur Leukocyte Esterase Negative Urine RBC 0-1/hpf Urine WBC None seen Urine Bacteria None seen Ur Culture Indicated? Cult not indicated Blood Type A Positive Antibody Screen Negative Assessment & Plan Assessment & Plan narrative: Gastrointestinal bleed acute. Patient has had a number of positive bloody bowel movements at the assisted living. One episode while in the emergency department none since. His hemoglobin hematocrit is currently stable. His vital signs are stable. His mentation is at baseline. Patient will be provided with IV fluids. Monitoring of hemoglobin hematocrit and monitoring closely for increasing signs symptoms of bleeding. Patient is anticoagulated he was given vitamin K and will monitor his INR. He is not significantly out of alignment based on his coagulation studies. General surgery is seen and evaluated this patient and the grateful for their consultation. On discussion with patient's power of consumer attorney about his care wishes. He is a do not resuscitate. She would prefer no significant surgical interventions if necessary. Although she would not disclosed that if things continue to worsen. Will go ahead and place the patient on a proton pump inhibitor monitor serial hemoglobin hematocrit its and consider intervention within this copy if necessarily warranted although patient's does not want him to have that currently. Acute kidney injury. Patient's creatinine is 1.2. Much above his current regular baseline. Possibly due to dehydration in the gastrointestinal bleeding. Will provide IV fluid resuscitation. Monitor closely his electrolytes. And recheck his creatinine. I am assuming with hydration fluids and time his kidney function will improve. TIA recent hospital admission for possible TIA. Neural imaging showed no acute cerebral disease. Patient is on anticoagulation his current blood pressure is well. It is hard to determine at this time due to significant neurological compromise due to Parkinson's disease but I do not see any acute new findings on examination. Atrial fibrillation. Patient has known atrial fibrillation and on anticoa gulation he is still in AFib. His Coumadin will be held and his INR has been reversed. To this of course is at increased risk for stroke but this seems like the most prudent thing to do at this point. Osteoarthritis chronic and stable. Tylenol orders will be written for. Disposition and plan. Admit to the hospital for further management is of acute gastrointestinal bleed and acute kidney injury. We in the hospital greater than 2 midnights. Will work on reversing his INR serially monitoring his hemoglobin hematocrit providing IV fluid. Maybe only surgical intervention if things do not come down here over the next 24-48 hours or worsen. Will continue with IV proton pump inhibitor. Will have our child protective services social worker be in contact with his is a were hoping to arrange for hospice for patient to be able to go home with that. They are ready for that sooner than later.
[2019-10-06 08:36] LABS: COVID19 -Nasal RAPID Negative (Negative)
[2019-10-06 09:14] LABS: Hematocrit 49.1 % (41-53); Hemoglobin 16.1 g/dL (13.5-17.5)
--- NOTE | 2019-10-06 10:20 | PC.NURSE ---
Addendum entered by Magy Nguyen R.N. 10/06/19 15:02: Patient is NPO and will have an EGD this afternoon.... will be up to see patient after her case. Patients bp 158/73 and he is resting comfortably on his back. He did have one small 1/2 teaspoon bloody stool earlier and was changed. Addendum entered by Magy Nguyen R.N. 10/06/19 13:42: Patient denies pain or discomfort, he has been non-verbal most of the shift. He has NS infusing at 125cc/hr. He is npo, he has been sleeping. in seeing patient now. Original Note: Patient admitted to the floor at 0835. He has been having bright red blood in his stool x2 at the [facility]. Came to the ER for GI Bleed. When coming up to the floor via stretcher, patient was incontinent of a crimson colored stool, and incontinent of soila colored urine. He has a dx of Parkinsons and his r.arm does shake occasionally. Patient is NPO at this time, awaiting to come and see patient. He has some skin issues that can be viewed of body images of skin assessment. and josi in room visiting.
[2019-10-06] MEDS: SODIUM CHLORIDE 0.9% 1,000 ML 125 ML IV ×2 (10:46→17:30)
[2019-10-06 14:10] LABS: Alanine Aminotransferase 32 IU/L (<50)
[2019-10-06 15:31] LABS: Hemoglobin 16.2 g/dL (13.5-17.5)
--- NOTE | 2019-10-06 15:44 | DIET.PN ---
Dietary Progress Note Assessment: 79y M admitted for GI bleed c advanced Parkinson's and Parkinson's dementia referred to nutrition for assessed at high risk. Pt, , and support person in room endorsing recent ongoing weight loss. Per family, weight loss attributed to advancement of dz (Parkinsons dementia), pt is R handed c R handed tremor limiting self-feeding, visual issues which make pt not see part of his plate when eating, recently dx dysphagia (per [facility] on 10/01/2019), and islolation related to ongoing Covid19 pandemic. Pt's spouse reports he really went downhill when he was admitted to [facility]. She is ready to move forward with hospice services r/t pt's reduced quality of life. Pt was being assisted c feeding at [facility]. Pt's reports recently he would be eating at restaurant patio and use fork to eat ketchup or tartar sauce, but not eat his main r/t visual deficiencies and tremor. Pts reports maybe not managing food choices recently c anti-coagulation and wondering if that may be cause of GI bleed. Per records pt has 10.3% unintentional wt loss in 1 mo, severe. HT: 182.8cm WT: 84kg BMI: 25.1 Labs: hgb 16 MNA: 11 at risk for malnutrition Yusuf: 14 high risk for skin breakdown Nutrition Diagnosis: Severe acute PCM r/t advancement of dz (Parkinson's, dementia) and reduced appetite secondary to pandemic isolation aeb 10.3% unintentional weight loss in 1mo (severe), family reporting pt not doing well c move to residential facility, pt reduced ability to self-feed and cognate hunger/hydration needs, weakness qualified by PT max assist x2, system wide subcutaneous fat and muscle losses in temples, clavicles, interosseous. Interventions: Pt is currently NPO and considering hospice care. If this does not happen or delayed and pt assigned diet order, will address PCM status c ONS appropriate to pt. Diet Order: NPO EER: 2100 kcal (25kcal/kg), 110g PRO (1.3g/kg) Monitoring/Evaluations: following for diet order
[2019-10-06 17:16] LABS: Prothrombin Time 45.6 SECONDS (10.1-12.7)
--- NOTE | 2019-10-06 17:30 | PM.PREOP ---
Pre-operative Note COVID-19 Result date/Date tested (Pos, Neg/Pending): 10/06/19 Interval Note History & Physical reviewed/Exam performed by Physician: Yes Changes to H&P: Yes H&P completed within 30 days and has changed as indicated here:: Discussed with patient's risks and benefits of EGD, biopsy, possible procedures for hemostasis. Risks of bleeding, perforation, need for additional procedures were discussed. She wants to proceed with the EGD for diagnostic and possibly therapeutic reasons. Consent was signed. Anesthesia was consulted because patient is ASA 4 and high risk for sedation due to his medical fragility and comorbidities. ASA Class (for procedural sedation): IV
[2019-10-06] MEDS: CARBIDOPA-LEVODOPA 25/100 TABLET 2 EACH PO ×2 (18:02→21:52)
--- NOTE | 2019-10-06 18:37 | PC.NURSE ---
swallow pt not comprehending how to take a drink of water. parkinsons medication administered with a bite of applesauce.
[2019-10-06] MEDS: MEMANTINE HCL 5 MG TABLET 10 MG PO (21:53)
[2019-10-07 00:11] VITALS: BP 106/55; PULSE 80; RESP 20; TEMP 36.9; O2SAT 93
[2019-10-07] MEDS: SODIUM CHLORIDE 0.9% 1,000 ML 125 ML IV ×2 (01:28→09:10)
[2019-10-07 03:10] VITALS: BP 102/57; PULSE 76; RESP 20; TEMP 37.4; O2SAT 93
--- NOTE | 2019-10-07 07:23 | P.PN_ITS ---
Subjective Subjective Date Patient Seen: 10/07/19 Time Patient Seen: 07:24 Interval history: Patient did well yesterday and overnight last night. Patient is confused. On examination he has tremors. Was NPO yesterday for upper endoscopy. Due to OR scheduling complex. Eventually this was postponed till today. Patient not really interested in eating. Able to get some medications down. Did do okay with a bedside swallow yesterday. But not much nutrition oth er than IV fluid. Still having some rectal bleeding. Although not profuse watery. INR was still prolonged last evening. Hemoglobin hematocrit stable. Exam Vital Signs (past 8 hours): - 10/07/19 00:11 10/07/19 03:10 Temperature 98.5 F 99.4 F Pulse Rate 80 76 Respiratory Rate 20 20 Blood Pressure 106/55 L 102/57 L Pulse Oximetry 93 93 Oxygen Delivery Method Room Air Oxygen Flow Rate 0 Narrative Exam Narrative: Gen.: Arousable. With a tremor. Confused not really answering questions appropriately. HEENT: Pupils equal round and reactive or mucosa is dry neck is supple Cardio: S1-S2 irregular rate and rhythm systolic murmur present Respiratory: Normal respiratory effort Abdomen: Soft nontender. Extremities: Rigidity with tremors Objective Labs Result Diagrams: 10/06/19 15:25 10/06/19 05:53 Labs: Laboratory Results - last 24 hr 10/06/19 10/06/19 10/06/19 05:53 07:23 09:07 Hgb 16.1 Hct 49.1 PT INR ALT 32 COVID-19 PCR Negative 10/06/19 10/06/19 15:25 17:00 Hgb 16.2 Hct 49.0 PT 45.6 H D INR 4.0 H ALT COVID-19 PCR Assessment & Plan Assessment & Plan narrative: Gastrointestinal bleed acute. Hemoglobin hematocrit remained stable. On IV fluid. Patient is a no code but would like him to have an EGD. This will be scheduled later today as per surgery. Awaiting this morning's laboratory test hemoglobin hematocrit INR was slightly elevated last night despite IV and oral vitamin K. We may need to give him a little more today. Acute kidney injury. Patient received IV fluids. Creatinine is pending this morning. Probably be able to back off on those IV fluids. Hopefully kidney injury has resolved. TIA recent hospital admission for possible TIA. Neural imaging showed no acute cerebral disease. Patient's neurological status is difficult to assess at this point. Course his Coumadin will be held. Pending what his EGD shows we may have to determine what his plans are for anticoagulation for atrial fibrillation and potential TIA other than Coumadin. Atrial fibrillation. Patient has known atrial fibrillation and on a nticoagulation he is still in AFib. Rate is well controlled. Coumadin on hold blood pressure stable. Osteoarthritis chronic and stable. Tylenol orders will be written for. Disposition and plan. NPO for EGD this afternoon. Still having bleeding. Last check hemoglobin hematocrit is stable. Recheck PT and INR. Reverse as needed. Long-term care goals and plans. is anticipating him going home with hospice. Although he was at [facility]. Until that transition could happen. May go back to assisted living for a week or 2 until hospice is available home pending outcome of EGD and hospitalization. Patient is no code. Quality VTE Deep Vein Thrombosis/Pulmonary Embolism Present on Admission: No
[2019-10-07 08:00] VITALS: BP 113/82; PULSE 83; RESP 18; TEMP 37.3; O2SAT 94
[2019-10-07 08:08] LABS: INR 2.8 (0.9-1.3); Prothrombin Time 32.1 SECONDS (10.1-12.7)
[2019-10-07 08:13] LABS: BUN Creatinine Ratio 36.1 (6-22); Blood Urea Nitrogen 79 mg/dL (9-20); Calcium 8.7 mg/dL (8.4-10.2); Carbon Dioxide 23 mmol/L (22-32); Chloride 116 mmol/L (98-107); Estimated Glomerular Filt Rate 29.2 mL/min (>60); Glucose 150 mg/dL (80-110); HEMOLYSIS < 15 (0-50); Potassium 4.1 mmol/L (3.4-5.1); Sodium 146 mmol/L (137-145)
[2019-10-07 08:15] LABS: Add Manual Diff / Slide Review NO; Basophils Absolute Auto 0 /uL (0-100); Basophils Percent Auto 0.1 % (0-2); Eosinophils Absolute Auto 100 /uL (0-450); Eosinophils Percent Auto 0.5 % (2-4); Hematocrit 45.2 % (41-53); Hemoglobin 14.8 g/dL (13.5-17.5); Lymphocytes Absolute Auto 1300 /uL (1100-4500); Lymphocytes Percent Auto 7.4 % (25-40); Mean Corpuscular HGB Conc 32.8 % (30-36); Mean Corpuscular Hemoglobin 30.7 PG (26-34); Mean Corpuscular Volume 93.8 fL (80-100); Monocytes Absolute Auto 1400 /uL (0-900); Monocytes Percent Auto 8.4 % (3-14); Neutrophils Absolute Auto 14200 /uL (1500-7000); Neutrophils Percent Auto 83.6 % (50-75); Platelet Count 195 X10^3/uL (150-400); Red Blood Cell Count 4.82 X10^6/uL (4.5-5.9); Red Cell Distribution Width 16.3 % (11.6-14.8)
--- NOTE | 2019-10-07 09:03 | CM.DANOTE ---
Addendum entered by Rose Marcelo LPN 10/07/19 15:55: Met with Tess and her friend/director of digital platforms now in pt's room Tess first stated that she hoped pt would stay on in the hospital until Friday as [facility] can see him at home in the afternoon. She stays she does understand that he may need to d/c before then and if so he will go back to [facility] with a d/c from there to home on Friday. She states is is very difficult as she cannot see him at the facility, only through a window. Have confirmed now with Olamide/NEERU that, if pt is actively dying one family member at time can be with him as long as PPE is donned. If pt does d/c before before Friday plan is for [facility] via ambulance. [facility] would then need to d/c pt to his home on Friday and [facility] is aware and very agreeable to whatever is needed. [facility] is delivering DME to pt's home tomorrow and Tess will be there to receive it and also to meet with the private caregiving agency who will be helping her care for her . P: as outlined above. Will check in tomorrow and hope to discuss case with Dr. Burgos. Original Note: Discharge Planning/Care Management DCP: assessment: case received, EMR reviewed and checked in on pt. Pt with recent admission to with a d/c to [facility] for temporary care until a [place] [facility] plan for pt's care could be arranged by pt's Tess and family. Dr. Burgos's office has recently sent a referral in to [facility]/confirmed same with HNGurpreet Choudhary today. [facility] has agreed to fax the current clinical to them to complete the referral. Funmi stated that a hospice info visit would be forthcoming by [facility] (she was to reach out to pt's Tess) but that we are currently at capacity. We look at caseload day to day and I will not know more until I talk with our RN Mariana. P: discuss in Team Rounds. Reach out to Tess and to Olamide/[facility]ERU for further clarity re the d/c plan. [facility] could certainly open pt to service at the [facility] if indicated and will make sure Tess does understand this. COVID test -: 10/05. EGD is planned for today, per Dr. Burgos's progress note. Advanced directive, confirm from FAMILY Start: 10/06/19 09:01 Freq: Q24H Status: Active Protocol: Document 10/06/19 10:09 CLL (Rec: 10/06/19 10:20 CLL [id number]) Co-Signed By Fabiola Pang RN 10/06/19 10:09 Advance Directive, confirm on record Time 10:00 Person contacted Copy received No Advanced directive available on record Yes CM Discharge Assessment Start: 10/07/19 09:01 Freq: Status: Active Protocol: Document 10/07/19 09:01 ITV (Rec: 10/07/19 09:02 ITV [id number]) Discharge Planning Assessment Advance Directives? Yes Advance Directives on File Yes History Provided By Medical Record Prior Living Arrangements Assisted Living Facility Name Admitted From: [facility] with ADL's No Is patient alert and oriented? No Whiteboard Updated in Patient Room with Yes name and ext. # of Custodian Blood Bank Review Status In Process
[2019-10-07] MEDS: PHYTONADIONE (VIT K1) 5 MG in DEXTROSE 5 % IN WATER 50 ML 101 ML IV (09:09)
[2019-10-07] MEDS: PANTOPRAZOLE 40 MG VIAL IV (10:45)
--- NOTE | 2019-10-07 11:13 | PC.NURSE ---
Addendum entered by Magy Nguyen R.N. 10/07/19 13:36: Patients eyes with a glazed appearance. Patient will sometimes respond to his name, but has been mostly non vernal. Patients Tess here to see him, she and the Dr. have decided not to have his EGD done as he seems to be declining more. He was just changed again and incontinent of urine and loose stool with dark specks in it. Changed and repositioned to his r.side. Heel protectors on both feet and waffle cushion under his bottom. Original Note: Patient is non responsive for the most part but will arouse and occasionally reply to his name. He does not like to be turned side to side, patient has Parkinsons and will start shaking when he is uncomfortable. Patient had a medium soft bowel movement with blood, color is brown but smell of blood is present. Heel protectors applied to patients heels as they are red but not open, The outter aspect of his r.large toe is also red. He is going for and EGD around 1300 today, consent has been signed by his . Patient is resting comfortably.
[2019-10-07 13:00] VITALS: BP 117/64; PULSE 80; RESP 20; TEMP 37.6; O2SAT 93
--- NOTE | 2019-10-07 13:50 | DI.RAD.S_ITS ---
PROCEDURE: XR CHEST 1V INDICATIONS: elevated wbc confusion TECHNIQUE: One view of the chest was acquired. COMPARISON: [facility], CR, XR CHEST 1V, 12/16/2017, 17:46. [facility], CR, XR CHEST 2V, 12/05/2017, 14:10. FINDINGS: Surgical changes and devices: None. Lungs and pleura: Lungs are clear. No pleural effusions or pneumothorax. Mediastinum: Mediastinal contours appear normal. Heart size is normal. Bones and chest wall: No suspicious bony lesions. Overlying soft tissues appear unremarkable. IMPRESSION: No pneumonia found. The patient is rotated and tilted rightward. Dictated by: Roque Francis M.D. on 10/07/2019 at 14:17 Approved by: Roque Francis M.D. on 10/07/2019 at 14:18
[2019-10-07 15:24] LABS: Hematocrit 45.2 % (41-53); Hemoglobin 14.8 g/dL (13.5-17.5)
[2019-10-07 15:25] VITALS: BP 127/77; PULSE 77; RESP 20; TEMP 36.5; O2SAT 96
[2019-10-07] MEDS: SCOPOLAMINE 1 PATCH TOP (18:14)
[2019-10-08 03:00] VITALS: BP 86/56; PULSE 96; RESP 17; O2SAT 93
[2019-10-08 04:52] VITALS: TEMP 37.4
--- NOTE | 2019-10-08 05:44 | PM.PN.1 ---
Subjective Subjective Date Patient Seen: 10/08/19 Time Patient Seen: 05:44 Interval history: Patient seen last night and again with this morning. Had a long discussion with his again about care plans. They decided to cancel the upper endoscopy yesterday which I think is a good idea. Patient is becoming less responsive. Not taking anything oral this point. Patient has an elevated white blood cell count. Bloody bowel movements are still present although decreasing. After discussion with his yesterday afternoon at her request we decided to hold off on his EGD which she has a no code in the did not want any major interventions or surgical procedures early. Last night after discussing with her. She would like him to be now comfort care. And is working on arranging hospice at home which may happen here in the next 24-48 hours. Throughout the night. Patient is less responsive he opens his eyes. S he has mild increased work of breathing. He is warm he is perfusing. We elected not to do a significant medication other and then shins. He appears to be tender in his abdomen area. Exam Vital Signs (past 8 hours): - 10/08/19 03:00 10/08/19 04:52 Temperature 99.3 F Pulse Rate 96 H Respiratory Rate 17 Blood Pressure 86/56 L Pulse Oximetry 93 Oxygen Delivery Method Room Air Oxygen Flow Rate 0 Narrative Exam Narrative: Gen.: Unresponsive HEENT: Pupils equal round and reactive or mucosa is moist Cardio: Irregular rate and rhythm Respiratory: Increased work of breathing some crackles throughout the lung yanes Abdomen: Tenderness in his lower abdomen area Extremities: Rigidity and tremors Objective Labs Result Diagrams: 10/07/19 15:18 10/07/19 07:50 Labs: Laboratory Results - last 24 hr 10/07/19 10/07/19 10/07/19 07:50 07:50 07:50 WBC 17.0 H RBC 4.82 Hgb 14.8 Hct 45.2 MCV 93.8 MCH 30.7 MCHC 32.8 RDW 16.3 H Plt Count 195 Neut % (Auto) 83.6 H Lymph % (Auto) 7.4 L [place] % (Auto) 8.4 Eos % (Auto) 0.5 L Baso % (Auto) 0.1 Neut # (Auto) 41297 H Lymph # (Auto) 1300 [place] # (Auto) 1400 H Eos # (Auto) 100 Baso # (Auto) 0 PT 32.1 H D INR 2.8 H Sodium 146 H Potassium 4.1 Chloride 116 H Carbon Dioxide 23 BUN 79 H Creatinine 2.19 H Estimated GFR 29.2 L BUN/Creatinine Ratio 36.1 H Glucose 150 H Calcium 8.7 10/07/19 15:18 WBC RBC Hgb 14.8 Hct 45.2 MCV MCH MCHC RDW Plt Count Neut % (Auto) Lymph % (Auto) [place] % (Auto) Eos % (Auto) Baso % (Auto) Neut # (Auto) Lymph # (Auto) [place] # (Auto) Eos # (Auto) Baso # (Auto) PT INR Sodium Potassium Chloride Carbon Dioxide BUN Creatinine Estimated GFR BUN/Creatinine Ratio Glucose Calcium Assessment & Plan Assessment & Plan narrative: Gastrointestinal bleed acute. Tenderness abdomen and elevated white blood cell count. I think there is probably some type of infection or other GI pathology. Yesterday due to patient's continued declining health. Discussion with his and his advanced care directives. They decided no longer to further pursue EGD colonoscopy. As he is been a little bit less responsive. And decided to transition him to comfort care. Patient's is working on hospice care for him. Acute kidney injury. TIA recent hospital admission for possible TIA. Atrial fibrillation. Off on anticoagulation. His INR has been reversed due to GI bleeding Osteoarthritis chronic and stable. Disposition and plan. Currently now with comfort care orders as per his 's and patient's advanced directives at as of last night after a long conversation. Plan will be for patient to go home with hospice. Since his arrangements can be made. Quality VTE Deep Vein Thrombosis/Pulmonary Embolism Present on Admission: No
--- NOTE | 2019-10-08 07:27 | PC.NURSE ---
Patient did not open his eyes until 0500 when his MD stopped in to see him. Lips moved, but did not vocalize.
[2019-10-08 08:00] VITALS: BP 94/61; PULSE 104; RESP 25; TEMP 38.2; O2SAT 95
--- NOTE | 2019-10-08 08:29 | CM.DPC ---
DCP: continued: EMR reviewed. See that Dr. Burgos was here at 0500 to see pt. He clarifies the plan as home with Hospice care when this can be arranged. At this time director general can see pt on Friday. DME is being delivered. If pt is to d/c prior to Friday he will return to [facility] and then d/c home Friday. IF this occurs another COVID 19 will be needed and [facility] nurse will need to assess pt in person at the hospital (as per their regs). All is discussed with Olamide/[facility] Will check later to see if there is any possibility of an open to service by [facility] on Fri or Friday.
--- NOTE | 2019-10-08 10:47 | PC.NURSE ---
Assess- Patient is nonresponsive, temp of 100.7... Ice pack and cold cloth applied to head. He does feel a bit cooler. Incontinent of concentrated urine, and medium bloody stool, bright red in color. Given a bed bath and repositioned to r.side. Heel protectors on, barrier cream applied to l groin, and buttocks. Areas look better compared to yesterday. Patient has been heplocked since last night, iv to r.roberto carlos wnl. has not been into see patient yet.
[2019-10-08] MEDS: MORPHINE 10 MG/0.5 ML ORAL SYRINGE PO ×2 (18:25→22:22)
[2019-10-08 19:14] VITALS: BP 107/49; PULSE 97; RESP 24; TEMP 37.2; O2SAT 92
[2019-10-09 02:00] VITALS: BP 99/52; PULSE 97; RESP 30; TEMP 37.2; O2SAT 87
[2019-10-09] MEDS: MORPHINE 10 MG/0.5 ML ORAL SYRINGE PO (02:09)
[2019-10-09] MEDS: LORazepam 1 MG TABLET PO (02:52)
[2019-10-09] MEDS: SCOPOLAMINE 1 PATCH TOP (02:52)
--- NOTE | 2019-10-09 05:16 | PC.NURSE ---
Patient time of 0450. Two nurse verification by this nurse and Maye Sampson RN. Two blood pressure checks, no pulse located after apical checked for a minute. Respiratory rate at 0. Dr. Macdonald notified at 0459 and ordered to release the remains to the family's home of choice. Family notified at 0510.
--- NOTE | 2019-10-09 07:24 | PC.NURSE ---
Remains released to [facility]. Personal belongings sent home with .
--- NOTE | 2019-10-09 09:43 | P.DN_ITS ---
Discharge Summary History of Illness Narrative: 79-year-old male with advanced Parkinson's disease and Parkinson's disease related dementia recently admitted to the hospital with possible TIA like symptoms and has been at the assisted living now for about a week. Patient has a history of atrial fibrillation pulmonary emboli and is on anticoagulation. Patient has had episodes of bright red rectal bleeding overnight in the assisted living center. He was brought here to the emergency department for fur ther evaluation. Patient is unable to provide much of a history due to his dementia. I reviewed records and did not emergency room physician notes and talked to the staff at the assisted living. I also talked with his who is his primary caregiver but also the person he makes his medical decisions. We are working on getting hospice setup for the patient at home so he could go home with hospice when he finished his short stay in the assisted living facility. I reviewed with her which her wishes for her today and reconfirmed his code status which is DNR. Patient's is hoping that he does not need significant medical interventions like surgeries in an endoscopy is in with her for a pole more conservative management although she is not willing at this point provide just comfort care. On my examination Dustin wakes up. He looks a little bit Nichole. Sh little unshaven and unkept. One on awakening he has a tremor. He answers me he does not recognize me although sometimes he does before this. Says he does not have any problems and he really has a hard time for seeing why he is here. He is not complaining any significant pain that I a.m. aware of when he answers questions about chest pain headache abdominal pain or discomfort. {from Dr. Burgos's H&P 10/06/19} Hospital Course Date of Admission: 10/06/19 07:53 Date of : 10/09/19 Primary care provider: Addi Burgos MD Consults: 10/06/19 08:50 Consult to General Surgery Urgent Comment: Consulting Provider: Hailee Handley Reason for consultation: GI Bleed Has provider been notified: Yes 10/06/19 09:01 Consult to Dietitian, Adult Routine Comment: Reason For Exam: Assessed at high risk Discharge Diagnosis: 1. Acute GI bleeding, source unknown, likely cause of 2. Chronic end-stage Parkinson's disease 3. 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 Atrial fibrillation, chronic 5. History of pulmonary embolism, chronically anticoagulated 6. Chronic anticoagulated with warfarin due to problems 4 and 5 above 7. Recent admission for TIA 8. Acute kidney injury Hospital Course: Patient was admitted to the hospital with evidence of GI bleed/bright red blood per rectum from his living facility. Because of his dementia and parkinsonism patient really remained unresponsive/minimally responsive for the duration of his hospitalization. Patient felt to be having a probable upper or lower GI bleed exacerbated by his chronic anticoagulation which was felt to be important. Long discussion was held with the patient's family who given his clinical course over the last several weeks to months as well as most recently with a TIA and need to be pl aced in alternate living facility decided that ongoing evaluation and treatment of serious condition such as this GI bleed would be inappropriate. He was made comfort care and kept comfortable. On the morning of October 09, 2019, patient was found to have Family was notified as was the home. Objective Labs Result Diagrams: 10/07/19 15:18 10/07/19 07:50
--- NOTE | 2019-10-09 14:54 | CM.DPC ---
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 Went ahead and called Olamide at [facility] and gave her update. [facility] , and updated Ana María as well. Christina Sharp RN/[employer] Lead
== END 2019-10-09 04:50 | disposition expired | DRG 377 ==
LOC: ED 06:24 → AC 07:54
PROVIDERS: Admitting Provider Family Medicine; Emergency Provider Emergency Medicine; PCP Family Medicine; Referring Provider Emergency Medicine; Visit Provider Family Medicine
DX: K92.2 Gastrointestinal hemorrhage, unspecified (principal); E43 Unspecified severe protein-calorie malnutrition; G93.41 Metabolic encephalopathy; N17.9 Acute kidney failure, unspecified; I48.20 Chronic atrial fibrillation, unspecified; D68.32 Hemorrhagic disorder due to extrinsic circulating anticoagulants; A09 Infectious gastroenteritis and colitis, unspecified; K57.91 Diverticulosis of intestine, part unspecified, without perforation or abscess with bleeding; G20 Parkinson's disease; F02.80 Dementia in other diseases classified elsewhere, unspecified severity, without behavioral disturbance, psychotic disturbance, mood disturbance, and anxiety; I10 Essential (primary) hypertension; G47.33 Obstructive sleep apnea (adult) (pediatric); Z86.711 Personal history of pulmonary embolism; Z79.01 Long term (current) use of anticoagulants; Z87.891 Personal history of nicotine dependence; Z11.59 Encounter for screening for other viral diseases; Z66 Do not resuscitate
CPT/HCPCS: 36415; 71045; 80048; 80053; 81001; 85014; 85018; 85025; 85610; 85730; 86850; 86900; 86901; 87635; 96372; 96374; 99223; 99232; 99284; C9113; J3430